=== PATIENT | female | born 1980 | race Caucasian/White ===

== ENCOUNTER → 2020-10-15 10:10 | Outpatient (BNVA) | payer BC, SELFPAY | PROVIDERS: PCP Internal Medicine; Visit Provider Obstetrics & Gynecology ==

== ENCOUNTER 2020-10-22 14:32 | Outpatient (REF) | payer BC, SELFPAY ==
--- NOTE | 2020-10-22 14:35 | US_ITS ---
EXAMINATION: US PELVIS COMPLETE CLINICAL INFORMATION: Adnexal fullness and menorrhagia. COMPARISON: Ultrasound pelvis 11/01/2019. TECHNIQUE: Transabdominal and transvaginal imaging of the pelvis is performed. FINDINGS: The uterus is anteverted measuring 9.5 cm in length, 5.3 cm in AP and 5.8 cm wide. The myometrium is heterogeneous. Endometrial thickness measures 1.75 cm. There is a small submucosal slightly hyperechoic lesion in the fundus measuring 2.1 x 1.9 1.1 cm, suspicious of a polyp or fibroid. No additional lesions seen. The right ovary measures 4.9 x 3.5 x 4.7 cm. There is a complex solid lesion with internal echoes measuring 4.3 x 3.9 x 4.1 cm with internal echoes. There are cystic areas within. The left ovary measures 3.7 x 2.4 x 2.9 cm and volume 13.5 mL. Previously left ovary measured 2.9 x 2.4 x 2.5 cm and volume 9.1 mL. There is small amount of free fluid in the pelvis. US/US transvaginal IMPRESSION: Small submucosal polyp versus fibroid in the fundal region. Heterogeneous myometrium Complex lesion in the right ovary with internal echoes and cystic areas within. Unremarkable left ovary. Small amount of free fluid in the pelvis.
--- NOTE | 2020-10-22 14:35 | US_ITS ---
EXAMINATION: US PELVIS COMPLETE CLINICAL INFORMATION: Adnexal fullness and menorrhagia. COMPARISON: Ultrasound pelvis 11/01/2019. TECHNIQUE: Transabdominal and transvaginal imaging of the pelvis is performed. FINDINGS: The uterus is anteverted measuring 9.5 cm in length, 5.3 cm in AP and 5.8 cm wide. The myometrium is heterogeneous. Endometrial thickness measures 1.75 cm. There is a small submucosal slightly hyperechoic lesion in the fundus measuring 2.1 x 1.9 1.1 cm, suspicious of a polyp or fibroid. No additional lesions seen. The right ovary measures 4.9 x 3.5 x 4.7 cm. There is a complex solid lesion with internal echoes measuring 4.3 x 3.9 x 4.1 cm with internal echoes. There are cystic areas within. The left ovary measures 3.7 x 2.4 x 2.9 cm and volume 13.5 mL. Previously left ovary measured 2.9 x 2.4 x 2.5 cm and volume 9.1 mL. There is small amount of free fluid in the pelvis. US/US pelvic complete IMPRESSION: Small submucosal polyp versus fibroid in the fundal region. Heterogeneous myometrium Complex lesion in the right ovary with internal echoes and cystic areas within. Unremarkable left ovary. Small amount of free fluid in the pelvis.
== END 2020-10-22 14:33 | disposition home or self-care (01) ==
LOC: HO.US 14:32
PROVIDERS: PCP Nurse Practitioner Family; Visit Provider Obstetrics & Gynecology
DX: N94.9 Unspecified condition associated with female genital organs and menstrual cycle (principal); N92.0 Excessive and frequent menstruation with regular cycle
CPT/HCPCS: 76830; 76856

== ENCOUNTER → 2020-10-30 14:17 | Outpatient (BNVA) | payer BC, SELFPAY | PROVIDERS: PCP Internal Medicine; Visit Provider Obstetrics & Gynecology ==

== ENCOUNTER 2020-10-31 13:47 | Outpatient (REF) | payer BC, SELFPAY ==
[2020-10-31 14:46] LABS: Hematocrit 37.1 % (37-47); Hemoglobin 11.9 g/dl (12.0-16.0); Mean Corpuscular HGB Conc 32.1 g/dl (31.0-35.0); Mean Corpuscular Hemoglobin 25.3 pg (27.0-33.0); Mean Corpuscular Volume 78.9 fL (80-98); Mean Platelet Volume 9.3 fL (9.4-12.3); Platelet Count 269 X10*3/uL (160-400); Red Cell Distribution Width 13.6 % (11.0-16.0); White Blood Count 5.1 X10*3/uL (4.8-10.8)
[2020-10-31 15:27] LABS: HCG Quantitative < 2 mIU/mL; Thyroid Stimulating Hormone 1.69 uIU/mL (0.32-4.0)
[2020-11-01 06:28] LABS: CA-125 22 U/mL (<35)
== END 2020-10-31 13:48 | disposition home or self-care (01) ==
LOC: HO.LAB 13:47
PROVIDERS: PCP Internal Medicine; Visit Provider Obstetrics & Gynecology
DX: N83.299 Other ovarian cyst, unspecified side (principal); N92.0 Excessive and frequent menstruation with regular cycle; N94.9 Unspecified condition associated with female genital organs and menstrual cycle
CPT/HCPCS: 36415; 84443; 84702; 85027; 86304

== ENCOUNTER → 2020-11-08 15:17 | Outpatient (BNVA) | payer BC, SELFPAY | PROVIDERS: Visit Provider Obstetrics & Gynecology ==

== ENCOUNTER → 2020-11-14 08:03 | Outpatient (BNVA) | payer BC, SELFPAY | PROVIDERS: Visit Provider Obstetrics & Gynecology ==

== ENCOUNTER 2020-11-23 06:42 | Day surgery (SDC) | payer BC, SELFPAY ==
[2020-11-19 15:30] VITALS: BMI 31.2
--- NOTE | 2020-11-21 12:03 | P.CONAN_ITS ---
Documented by User: Abby Bharti 11/21/20 12:04 HPI - Anesthesia Eval Consult details Narrative: 40yo F for D&C Diagnostic Hysteroscopy PMFSH Active Problems Active Problems: All Active Problems (Updated 11/19/20 @ 15:32 by Madeleine Wolfe) Well woman exam (Acute) Menorrhagia (Acute) Adnexal fullness (Acute) Complex ovarian cyst (Acute) Metrorrhagia (Acute) Pelvic pain (Acute) Past Medical History Medical History (Updated 11/19/20 @ 15:32 by Madeleine Wolfe) Anxiety Asthma, exercise induced Concussion Heartburn History of intussusception HTN (hypertension) Migraines Family History Family History Father HTN (hypertension) Mother HTN (hypertension) Surgical History Surgical History (Updated 11/19/20 @ 15:25 by Madeleine Wolfe) History of surgery on arm Social History Social History (Updated 11/19/20 @ 15:18 by Madeleine Wolfe) Alcohol intake: current Alcohol intake frequency: holidays/special occasions only Smoking Status: Never smoker Use of substances other than those prescribed or required for medical reasons: No Advance Directives: No Advance Directives Information Provided: No Advance Directives on File: No Meds Allergies Allergy/AdvReac Type Severity Reaction Status Date / Time No Known Allergies [NKA] Allergy Mild NKA Verified 11/19/20 15:21 Home Medications Medication Instructions Recorded Confirmed Last Taken Type labetalol 300 mg tablet 300 mg PO BID 10/15/20 11/19/20 11/23/20 History losartan 50 mg tablet 50 mg PO BID 10/15/20 11/19/20 Unknown History sertraline 50 mg tablet 75 mg PO DAILY 10/15/20 11/19/20 Unknown History calcium carbonate [Tums] 1 tab PO Q4-6H PRN 11/19/20 11/19/20 Unknown History melatonin 5 mg PO BEDTIME PRN 11/19/20 11/19/20 Unknown History multivitamin 1 tab PO DAILY 11/19/20 11/19/20 Unknown History Exam Exam Date and Time: November 21, 2020 1203 Height,Weight and Vital Signs: Height 5 ft Weight 72.575 kg Pertinent Lab Results Pertinent Lab Results: Laboratory Tests 10/31/20 14:05 WBC 5.1 Hgb 11.9 L Hct 37.1 Plt Count 269 Assessment and Plan Assessment Anesthesia Assessment: Chart Reviewed Documented by User: Hallie Lopez 11/23/20 08:07 [facility] Past Medical History Medical History (Updated 11/19/20 @ 15:32 by Madeleine Wolfe) Anxiety Asthma, exercise induced Concussion Heartburn History of intussusception HTN (hypertension) Migraines Family History Family History Father HTN (hypertension) Mother HTN (hypertension) Family history of problems with anesthesia: No Surgical History Surgical History (Updated 11/19/20 @ 15:25 by Madeleine Wolfe) History of surgery on arm History of Problems with Anesthesia: No Social History Social History (Updated 11/19/20 @ 15:18 by Madeleine Wolfe) Alcohol intake: current Alcohol intake frequency: holidays/special occasions only Smoking Status: Never smoker Use of substances other than those prescribed or required for medical reasons: No Advance Directives: No Advance Directives Information Provided: No Advance Directives on File: No Meds Allergies Allergy/AdvReac Type Severity Reaction Status Date / Time No Known Allergies [NKA] Allergy Mild NKA Verified 11/19/20 15:21 Home Medications Medication Instructions Recorded Confirmed Last Taken Type labetalol 300 mg tablet 300 mg PO BID 10/15/20 11/19/20 11/23/20 History losartan 50 mg tablet 50 mg PO BID 10/15/20 11/19/20 Unknown History sertraline 50 mg tablet 75 mg PO DAILY 10/15/20 11/19/20 Unknown History calcium carbonate [Tums] 1 tab PO Q4-6H PRN 11/19/20 11/19/20 Unknown History melatonin 5 mg PO BEDTIME PRN 11/19/20 11/19/20 Unknown History multivitamin 1 tab PO DAILY 11/19/20 11/19/20 Unknown History Exam Height,Weight and Vital Signs: Vital Signs Temp Pulse Resp BP Pulse Ox 11/23/20 07:10 97.8 F 70 16 129/86 96 Pertinent Lab Results Pertinent Lab Results: Lab Results 11/23/20 Range/Units 06:50 Urine Test NEGATIVE (NEGATIVE) Airway Mallampati Class: II TM Dist: >3cm Neck ROM: Full Heart: RRR Lungs: CTAB Assessment and Plan Assessment Anesthesia Assessment: Anesthesia Plan Discussed and Chart Reviewed Final Anesthetic Review NPO: Yes ASA Class: II Final Preanesthetic Review: No Changes in Pt Med Stat, Meds/Allgs Chart R eviewed, Consent Obtained/Reviewed and Anes Risks/Benef Reviewed Patient Risk: Low Procedure Risk: Low Assessment/Block/Sedation in SS: Assess/Block/Sedation-SS Anesthetic Plan Anesthetic Plan: GA Disposition: Standard PACU
[2020-11-23] VITALS (7 sets, daily range): BP systolic 121–137; BP diastolic 69–86; PULSE 59–74; RESP 16; TEMP 36.3–36.6; O2SAT 96–98
[2020-11-23 06:59] LABS: UPreg QC Valid YES; Urine Pregnancy NEGATIVE (NEGATIVE)
--- NOTE | 2020-11-23 07:30 | MHC.SHP ---
Pre-Procedural Eval Section A The patient is an INPATIENT: No Changes since office visit: No Cold of Flu in the past 2 weeks, No New Medical Problems, No Changes in Medication and No Patient answered all questions The History & Physical has been completed within 30 days and I have reviewed it.: Yes Section B Chief Complaint: Menorrhagia Allergies: Allergies Allergy/AdvReac Type Severity Reaction Status Date / Time No Known Allergies [NKA] Allergy Mild NKA Verified 11/19/20 15:21 Plan Diagnosis/Plan: Unchanged I have reviewed the history and physical and performed a pertinent physical examination on my patient. No changes have occurred unless specified.
[2020-11-23] MEDS: Lactated Ringers 1,000 ML 100 ML IVCONT (07:46)
--- NOTE | 2020-11-23 08:36 | PM.OP ---
Brief Operative Note Date of Service: 11/23/20 Pre-op diagnosis: Menorrhagia with endometrial polyp by ultrasound Post-op diagnosis: same Procedure: Hysteroscopy D&C, Polypectomy Surgeon: Alf Travis MD Anesthesia: MAC Estimated blood loss (mL): 0 Pathology: other (Endometrial Scrapping. Polyp) Condition: stable Disposition: PACU
--- NOTE | 2020-11-23 08:37 | P.OP_ITS ---
Operative Note Operative Note Date of Service: 11/23/20 Narrative: Preop Diagnosis: Menorrhagia with Endometrial polyp by US Operation: Diagnostic Hysteroscopy, Dilataion & Curettage and polypectomy Post Op Diagnosis: Endometrial Polyp QBL: Minimal Anesthesia: MAC Surgeon: Alf Travis MD [employer] Specialist: None Complication: None Pathology: Endometrial Scrapings, Endometrial polyp Complication: None Pathology: Endometrial Scrapings, Endometrial polyp Procedure: The patient was put in the dorsal lithotomy position, scrubbed, and draped in the usual manner. A sterile speculum was inserted in the patient's vagina. The anterior lip of the cervix was grasped with a single tooth tenaculum. The cervix was dilated up to 5 mm, then the scope was inserted in the patient's uterus. Inspection revealed endometrial polyp. The Myosure Reach device was used; it was introduced through the operative channel and polypectomy done with no complications. This was followed by sharp curettings, moderate tissues were retrieved. At the end of the procedure, all instruments were taken out of the patient uterine and vaginal cavity. The single tooth tenaculum was removed and homeostasis was assured using pressure,. The patient tolerated the procedure well and was transferred to the PACU in a stable condition.
[2020-11-23] MEDS: Acetaminophen 325 MG TABLET 650 MG PO (09:11)
== END 2020-11-23 10:15 ==
LOC: HO.SSS 06:42
PROVIDERS: Nurse Practitioner; PCP Internal Medicine; Visit Provider Obstetrics & Gynecology
PROC: 0UDB8ZX Extraction of Endometrium, Via Natural or Artificial Opening Endoscopic, Diagnostic (ICD-10-PCS; CPT 58558; principal; 2020-11-23 08:20)
DX: N92.0 Excessive and frequent menstruation with regular cycle (principal); N84.0 Polyp of corpus uteri; N83.299 Other ovarian cyst, unspecified side; I10 Essential (primary) hypertension; J45.990 Exercise induced bronchospasm; Z79.899 Other long term (current) drug therapy
CPT/HCPCS: 58558; 81025; 88305; J1100; J1885; J2250; J2405; J3010

== ENCOUNTER → 2020-12-06 10:49 | Outpatient (BNVA) | payer BC, SELFPAY | PROVIDERS: PCP Internal Medicine; Visit Provider Obstetrics & Gynecology ==

== ENCOUNTER → 2021-01-16 15:48 | Outpatient (BNVA) | payer BC, SELFPAY | PROVIDERS: PCP Internal Medicine; Visit Provider Obstetrics & Gynecology ==

== ENCOUNTER 2021-02-04 10:55 | Outpatient (REF) | payer BC, SELFPAY ==
--- NOTE | ~2021-02-04 | US_ITS ---
EXAMINATION: PELVIC ULTRASOUND CLINICAL INFORMATION: Ovarian cyst. COMPARISON: Previous pelvic ultrasound most recent September 2020 TECHNIQUE: Transabdominal and transvaginal pelvic ultrasound was performed. Transvaginal exam was performed for better visualization of the uterus and ovaries. FINDINGS: The uterus is anteverted and measures 9.3 x 5 x 4.9 cm in dimension. No focal uterine lesion is seen. Endometrial thickness measures 1.5 cm. Right ovary is enlarged and measures 5.9 x 4.5 x 4.3 cm. There is a complex partially cystic partially solid right adnexal lesion. This measures 4.7 x 3.6 x 4.7 cm with several complex cysts and hyperechoic solid component. Appearance is again questionable for a dermoid. This is similar to previous exams. The left ovary is normal-appearing and measures 3 x 2.5 x 2.1 cm. There is no fluid in the pelvis. US/US pelvic complete IMPRESSION: Stable complex partially solid partially cystic right ovarian lesion, question representing a dermoid.
--- NOTE | ~2021-02-04 | US_ITS ---
EXAMINATION: PELVIC ULTRASOUND CLINICAL INFORMATION: Ovarian cyst. COMPARISON: Previous pelvic ultrasound most recent September 2020 TECHNIQUE: Transabdominal and transvaginal pelvic ultrasound was performed. Transvaginal exam was performed for better visualization of the uterus and ovaries. FINDINGS: The uterus is anteverted and measures 9.3 x 5 x 4.9 cm in dimension. No focal uterine lesion is seen. Endometrial thickness measures 1.5 cm. Right ovary is enlarged and measures 5.9 x 4.5 x 4.3 cm. There is a complex partially cystic partially solid right adnexal lesion. This measures 4.7 x 3.6 x 4.7 cm with several complex cysts and hyperechoic solid component. Appearance is again questionable for a dermoid. This is similar to previous exams. The left ovary is normal-appearing and measures 3 x 2.5 x 2.1 cm. There is no fluid in the pelvis. US/US transvaginal IMPRESSION: Stable complex partially solid partially cystic right ovarian lesion, question representing a dermoid.
== END 2021-02-04 10:56 | disposition home or self-care (01) ==
LOC: HO.US 10:55
PROVIDERS: Visit Provider Obstetrics & Gynecology
DX: N83.299 Other ovarian cyst, unspecified side (principal)
CPT/HCPCS: 76830; 76856

== ENCOUNTER → 2021-02-08 08:08 | Outpatient (BNVA) | payer BC, SELFPAY | PROVIDERS: PCP Internal Medicine; Visit Provider Obstetrics & Gynecology ==

== ENCOUNTER → 2023-01-13 12:51 | Outpatient (REF) | payer BC, SELFPAY ==
--- NOTE | 2023-01-13 12:57 | CA_ITS ---
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 The calculated ejection fraction is 67% by biplane method. - There is mildly increased left ventricular wall thickness. - Evidence suggests grade I (mild) diastolic dysfunction. - No obvious valvular pathology seen on this study. Findings Left Ventricle Normal left ventricular cavity size. There is mildly increased left ventricular wall thickness. The left ventricular systolic function is normal. The calculated ejection fraction is 67% by biplane method. There is no evidence of regional wall motion abnormalities. E/E prime ratio is >15, consistent with elevated filling pressures. Evidence suggests grade I (mild) diastolic dysfunction. LV peak GLS -20.5%. Right Ventricle Normal right ventricular cavity size and systolic function. Atria Both atria are normal in size. Aortic Valve There is a normal trileaflet aortic valve. There is no aortic valve stenosis. There is no aortic valve regurgitation. Mitral Valve The mitral valve appears normal. There is no mitral valve regurgitation. There is no mitral valve stenosis. Pulmonic Valve The pulmonic valve is likely normal. Tricuspid Valve There is no tricuspid valve regurgitation. There is no evidence of pulmonary hypertension. Great Vessels The asc aorta is normal in size. Venous The inferior vena cava is normal in size and collapses greater than 50% with inspiration. Pericardium/Pleural There is no evidence of pericardial effusion. Prior Study Comparison No prior study available for comparison. Recommendations, Care & Conclusions No obvious valvular pathology seen on this study. Measurements 2D Linear Measurements IVSd: 1.25 0.6-0.9/0.6-1.0 cm LVIDd: 3.37 3.9-5.3/4.2-5.9 cm LVIDd Index: 1.95 2.4-3.2/2.2-3.1 cm/m2 LVIDs: 1.96 2.0-3.6 cm LVPWd: 1.25 0.7-1.1 cm Ao Root: 3.20 2.1-3.5 cm LA Diam: 3.10 2.7-3.8/3.0-4.0 cm LAIDs Index: 1.79 1.5-2.3 cm/m2 LV Mass: 170.55 67-162/88-224 g LV Mass Index: 98.58 43-95/49-115 g/m2 LVOT Diam: 1.90 3.0+(-)1.3 cm 2D Systolic Function EF 4C: 63.40 >55% EF 2C: 68.70 >55% EF BiP: 66.60 >55% Mitral Valve MV Pk E: 1.05 MV PK A: 0.99 MV Decel Time: 223.00 E/A: 1.10 E'Lateral: 7.51 E'Medial: 6.20 E/E' Med: 16.90 E/E' Lat: 14.00 PHT: 65.00 MVA PHT: 3.38 Decel Walton: 4.73 Aortic Valve AoV Pk Reji: 1.58 AoV Mn Reji: 1.05 AoV VTI: 0.39 AoV Pk Grad: 10.00 Aov Mn Grad: 5.00 KELLY Cont.VTI: 1.52 LVOT LVOT Pk Reji: 0.87 LVOT Mn Reji: 0.64 LVOT VTI: 0.21 LVOT Pk Grad: 3.00 LVOT Mn Grad: 2.00 LVOT Diam: 1.90 LVOT Area: 2.84 Diastolic Function MV Pk E: 1.05 MV Pk A: 0.99 E/A: 1.10 E'Medial: 6.20 E/E' Med: 16.90 E' Laterial: 7.51 E/E' Lat: 14.00 Right Ventricle TAPSE (mm): 30.00 TVS' Reji: 14.00 Tricuspid Valve TR Pk Reji: 2.07 TR Pk Grad: 17.00 RA Press: 3.00 RVSP: 20.00 Great Vessels Aorta Ao Root-2D: 3.20 2.0-3.7 cm Ao Asc: 3.20 2.1-3.4 cm Pulmonary Valve PV Pk Reji: 0.81 Peak PV Grad: 3.00 Updated in Other Vendor System with Status of Final Nicholas Oleary MD electronically signed on 01/13/2023 4:14:37 PM with status of Final
== END ==
LOC: HO.CARD 12:51
PROVIDERS: PCP Internal Medicine; Visit Provider Nurse Practitioner Family
DX: I10 Essential (primary) hypertension (principal)
CPT/HCPCS: 93306; 93356

== ENCOUNTER 2023-12-18 15:58 | Outpatient (AMB) | payer BC, SELFPAY ==
--- NOTE | 2023-12-18 16:01 | HO.NEPHOV_ITS ---
[facility] Medical History (Updated 12/18/23 @ 16:03 by Jaden Barber MD) Anxiety Migraines Heartburn Concussion Asthma, exercise induced History of intussusception HTN (hypertension) Surgical History History of surgery on arm Family History Father HTN (hypertension) Mother HTN (hypertension) Social History Alcohol intake: current Alcohol intake frequency: holidays/special occasions o nly Vital Signs 12/18/23 16:02 Height 5 ft Weight 181 lb 4 oz BMI 35.4 BP 130/90 H Blood Pressure Location Lt brachial Position Sitting Pulse 87 Pulse Source Pulse Oximeter Pulse Oximetry (%) 98 Oxygen Delivery Method Room Air Assessment & Plan Assessment & Plan Orders: Orders Electrolytes Today I10 - Essential (primary) hypertension Calcium Today I10 - Essential (primary) hypertension Blood Urea Nitrogen Today I10 - Essential (primary) hypertension Creatinine Today I10 - Essential (primary) hypertension Protein Creatinine Ratio, Ur Today I10 - Essential (primary) hypertension Coding Results Reviewed Nephrology Results: No Data to Display
--- NOTE | 2023-12-18 16:01 | HO.NEPHOV ---
HPI HPI Comments History of Present Illness Details I would the privilege of seeing Chantelle in follow-up of her hypertension. She does not have any headache, visual disturbances, nausea, vomiting, orthostatic symptoms, diarrhea, pedal edema. She does not take excessive nonsteroidal anti-inflammatories or salt in the diet. She is compliant with her medications. Her renal functions have been normal. She has history of having nausea with labetalol. She is on Abilify as well. She does not check her blood pressure at home. It has been at goal on the current medications. [facility] Medical History (Updated 12/18/23 @ 16:03 by Jaden Barber MD) Anxiety Migraines Heartburn Concussion Asthma, exercise induced History of intussusception HTN (hypertension) Surgical History History of surgery on arm Family History Father HTN (hypertension) Mother HTN (hypertension) Social History Alcohol intake: current Alcohol intake frequency: holidays/special occasions only Vital Signs 12/18/23 16:02 Height 5 ft Weight 181 lb 4 oz BMI 35.4 BP 130/88 Blood Pressure Location Lt brachial Position Sitting Pulse 87 Pulse Source Pulse Oximeter Pulse Oximetry (%) 98 Oxygen Delivery Method Room Air Physical Exam Const General: comfortable and no acute distress Orientation/consciousness: patient oriented x3 HEENT Head: Yes normocephalic Mouth: Normal oral and palatal mucosa present Eyes EOM: EOMs intact bilaterally Neck Neck: Yes supple Resp Auscultation: clear to auscultation bilaterally Cardio Jugular venous distension: no JVD Rate: regular rate GI Palpation (GI): Soft to palpation Auscultation: normal bowel sounds General: Yes no CVA tenderness Back/Spine/Pelvis Back: no CVA tenderness Skin General skin exam: no rashes or lesions noted Neuro General: patient oriented x3 and moves all extremities Extrem General: Yes no pedal edema Assessment & Plan Assessment & Plan (1) HTN (hypertension): Code(s): I10 - Essential (primary) hypertension Qualifiers: Hypertension type: primary hypertension Qualified Code(s): I10 - Essential (primary) hypertension Plan Chantelle's blood pressure is well controlled. She has history of hypokalemia due to chlorthalidone She has no clinical signs of end-organ damage She had COVID in September or October last year and blood pressure has been higher since She could continue on her current medications for now She should maintain lifestyle modification with low-sodium diet, weight loss and exercise. All these have been discussed in detail. All questions answered. Follow-up appointment given. Orders: Orders Electrolytes Today I10 - Essential (primary) hypertension Calcium Today I10 - Essential (primary) hypertension Blood Urea Nitrogen Today I10 - Essential (primary) hypertension Creatinine Today I10 - Essential (primary) hypertension Protein Creatinine Ratio, Ur Today I10 - Essential (primary) hypertension Creatinine 6 Months I10 - Essential (primary) hypertension Blood Urea Nitrogen 6 Months I10 - Essential (primary) hypertension Electrolytes 6 Months I10 - Essential (primary) hypertension Protein Creatinine Ratio, Ur 6 Months I10 - Essential (primary) hypertension Medications: Discontinued tranexamic acid (Lysteda) Discontinued Reason: Doctor's Order 1,300 mg (2 x 650 mg) PO TID 5 days 30 tabs 2RF Coding Level of Care Code Est Pt Level 4 (26074) Diagnoses Primary hypertension I10 Hypertension type: primary hypertension Results Reviewed Nephrology Results: No Data to Display
[2023-12-18 16:02] VITALS: BP 130/88; PULSE 87; O2SAT 98; BMI 35.4
== END 2023-12-18 16:32 | disposition home or self-care (01) ==
PROVIDERS: PCP Internal Medicine; Visit Provider Internal Medicine Nephrology
DX: I10 Essential (primary) hypertension (principal)
CPT/HCPCS: 99214

== ENCOUNTER → 2023-12-18 15:58 | Outpatient (BNVA) | payer BC, SELFPAY | PROVIDERS: PCP Internal Medicine; Visit Provider Internal Medicine Nephrology ==

== ENCOUNTER 2024-07-16 09:22 | Outpatient (REF) | payer BC, SELFPAY ==
[2024-07-16 11:54] LABS: Anion Gap 10 (12-20); Blood Urea Nitrogen 11 mg/dL (9-16); Calcium 8.6 mg/dL (8.4-10.2); Carbon Dioxide 29 mmol/L (22-29); Chloride 102 mmol/L (96-108); Estimated Glomerular Filt Rate > 60; Potassium 3.3 mmol/L (3.3-5.1); Sodium 138 mmol/L (135-145)
[2024-07-16 11:55] LABS: Creatinine Urine 236.36 mg/dL; Protein/Creatinine Ratio, Ur 0.05 (<0.2); Total Protein Urine Random 12 mg/dL (<12)
== END 2024-07-16 09:23 | disposition home or self-care (01) ==
LOC: HO.LAB 09:22
PROVIDERS: Visit Provider Internal Medicine Nephrology
DX: I10 Essential (primary) hypertension (principal)
CPT/HCPCS: 36415; 80051; 82310; 82565; 82570; 84156; 84520

== ENCOUNTER 2024-07-27 16:17 | Outpatient (AMB) | payer BC, SELFPAY ==
--- NOTE | 2024-07-27 16:19 | HO.NEPHOV_ITS ---
Vital Signs 07/27/24 16:21 Height 5 ft Weight 185 lb 4 oz BMI 36.2 BP 124/80 Blood Pressure Location Rt brachial Position Sitting Intake Visit Reasons: HTN/ 6 MO FU- Conf Operator Coating Furnace Required: No Accompanied by: Self / Same As Patient Allergies No Known Allergies [NKA] Allergy (Mild, Verified 07/27/24 16:21) NKA HPI Comments Details: Chantelle was seen in follow-up of her hypertension. She does not have any headache, visual disturbances, nausea, vomiting, orthostatic symptoms, diarrhea, pedal edema. She does not take excessive nonsteroidal anti-inflammatories or salt in the diet. She is compliant with her medications. Her renal functions have been normal. She has history of having nausea with labetalol. She does not check her blood pressure at home regularly. It has been at goal on the current medications [facility] Medical History (Updated 12/18/23 @ 16:03 by Jaden Barber MD) Anxiety Migraines Heartburn Concussion Asthma, exercise induced History of intussusception HTN (hypertension) Surgical History History of surgery on arm Family History Father HTN (hypertension) Mother HTN (hypertension) Social History Alcohol intake: current Alcohol intake frequency: holidays/special occasions only Review of Systems Const All systems reviewed & are unremarkable except as noted in HPI and below Physical Exam Vital Signs: Last Vital Signs BP 124/80 07/27/24 16:21 BMI result Body Mass Index 36.2 Const General: comfortable and no acute distress Orientation/consciousness: patient oriented x3 HEENT Head: Yes normocephalic Mouth: Normal oral and palatal mucosa present Eyes EOM: EOMs intact bilaterally Neck Neck: Yes supple Resp Auscultation: clear to auscultation bilaterally Cardio Jugular venous distension: no JVD Rate: regular rate GI Palpation (GI): Soft to palpation Auscultation: normal bowel sounds General: Yes no CVA tenderness Back/Spine/Pelvis Back: no CVA tenderness Skin General skin exam: no rashes or lesions noted Neuro General: patient oriented x3 and moves all extremities Extrem General: Yes no pedal edema Results Reviewed Nephrology Results: Sodium 138 mmol/L (135-145) 07/16/24 Potassium 3.3 mmol/L (3.3-5.1) 07/16/24 Chloride 102 mmol/L (96-108) 07/16/24 Carbon Dioxide 29 mmol/L (22-29) 07/16/24 BUN 11 mg/dL (9-16) 07/16/24 Creatinine 0.71 mg/dL (0.5-1.4) 07/16/24 Calcium 8.6 mg/dL (8.4-10.2) 07/16/24 Urine Creatinine 236.36 mg/dL 07/16/24 Protein/Creatinin Ratio 0.05 (<0.2) 07/16/24 Assessment & Plan Assessment & Plan (1) HTN (hypertension): Code(s): I10 - Essential (primary) hypertension Category: Medical Qualifiers: Hypertension type: primary hypertension Qualified Code(s): I10 - Essential (primary) hypertension Plan Chantelle's blood pressure is well controlled. She has history of hypokalemia due to chlorthalidone She has no clinical signs of end-organ damage She had COVID and blood pressure has been higher since She could continue on her current medications for now She should maintain lifestyle modification with low-sodium diet, weight loss and exercise. All these have been discussed in detail. All questions answered. Follow-up appointment given Coding Level of Care Code Est Pt Level 4 (12246) Diagnoses Primary hypertension I10 Hypertension type: primary hypertension
[2024-07-27 16:21] VITALS: BP 124/80; BMI 36.2
== END 2024-07-27 16:34 | disposition home or self-care (01) ==
LOC: HO.HKA 16:18
PROVIDERS: PCP Internal Medicine; Visit Provider Internal Medicine Nephrology
DX: I10 Essential (primary) hypertension (principal)
CPT/HCPCS: 99214

== ENCOUNTER → 2024-07-27 16:17 | Outpatient (BNVA) | payer BC, SELFPAY | PROVIDERS: PCP Internal Medicine; Visit Provider Internal Medicine Nephrology ==

== ENCOUNTER 2025-07-26 16:15 | Outpatient (AMB) | payer BC, SELFPAY ==
--- OUTSIDE RECORDS SUMMARY | 2025-07-24 09:00 | XMS_ITS | Encounter Summary ---
Author Organization [facility] Address [address] [address] Phone Care Team Providers Care Assistant Director Of Residence Life Name Role Phone Von Elizabeth MD Unavailable [phone] Moo Baez PA-C Primary Care Provider Reason for Referral * Medication Prior Authorization - Pending Review Specialty Diagnoses / Procedures Referred By Contac t Referred To Contact Diagnoses Class 1 obesity due to excess calories without serious comorbidity with body mass index (BMI) of 32.0 to 32.9 in adult Essential hypertension Gastroesophageal reflux disease without esophagitis IIH (idiopathic intracranial hypertension) Fanny Hand DO [address] [place] [address] Phone: tel: fax: mailto:[email or web address] Referral ID Status Reason Start Date Expiration Date V isits Requested Visits Authorized [id number] Pending Review 1 1 Reason for Visit * Reason Comments First Visit New Patient * Consultation (Within 1 month) - New Request Specialty Diagnoses / Procedures Referred By Contac t Referred To Contact Rafia Taylor MD [address] [place] [id number] Phone: tel: fax: mailto:[email or web address] [email or web address] Phone: tel: Referral ID Status Reason Start Date Expiration Date V isits Requested Visits Authorized [id number] New Request 07/17/2025 07/17/2026 1 1 Encounter Details Date Type Department Care Team (Skyler st Contact Info) Description 07/24/2025 9:00 AM EDT Office Visit [facility] Medical Weight Management [address] [facility] [address] [place] [address] Fanny Hand DO [address] [place] [address] [email or web address] Class 1 obesity due to excess calories without serious comorbidity with body mass index (BMI) of 32.0 to 32.9 in adult (Primary Dx); Essential hypertension; Anxiety and depression; Gastroesophageal reflux disease without esophagitis; Elevated LDL cholesterol level; IIH (idiopathic intracranial hypertension) Social History Tobacco Use Types Packs/Day Years Used Date Smoking Tobacco: Never Passive Smoke Exposure: Past Smokeless Tobacco: Never Tobacco Cessation:Counseling Given: Not Answered Alcohol Use Standard Drinks/Week Comments Yes 1 (1 standard drink = 0.6 oz pur e alcohol) 1-2 drinks/week Child or Family Care Answer Date Record ed Do you have problems with on e of the following making it difficult for you to work, study, or receive health care? No 08/22/2024 Education Answer Date Recorded Are you interested in help w ith more adult education (for example, completing high school, GED, job training, learning the Vincentian language, technical skills, or developing parenting skills)? No 08/22/2024 Are you concerned about learning? Not on file 08/22/2024 No 08/22/2024 Yes 08/22/2024 Food Answer Date Recorded Within the past 6 months we worried whether our food would run out before we got money to buy more. Never True 08/22/2024 Within the past 6 months the food we bought just didn't last and we didn't have enough money to get more. Never True Residential Stability Answer Date Recor ded What is your housing situation today? I have roscoe sing 08/22/2024 How many times have you move d in the past 12 months? Zero (I did not move) 08/22/2024 Paying for Meds Answer Date Recorded Do you have trouble paying for medicines? No 08/22/2024 Paying Utility Bills Answer Date Record ed Do you have trouble paying your heating or elect ricity bill? No 08/22/2024 Transportation Answer Date Recorded Has the lack of transportati on kept you from medical appointments or from getting medications? No 08/22/2024 Unemployment Answer Date Recorded Are you currently unemployed or working on a part-time or temporary basis, and looking for work? No 08/22/2024 Digital Access Answer Date Recorded No 08/22/2024 Yes 08/22/2024 Do you have reliable internet access at home? Ye s 08/22/2024 Do you have a device (e.g., phone, tablet, computer) with a working camera? Yes 08/22/2024 Intimate Partner Violence Answer Date R ecorded Denied Basic Needs Not on file 12/12/2024 In the past 12 months have y ou been in a relationship with a person who hurts, threatens, or tries to control you? No 12/12/2024 Worried food would run out Not on file 12/12 In the past 12 months have y ou been in a relationship with a person who hurts, threatens, or tries to control you? No 12/12/2024 Comments No Sex and Gender Information Value Date Recorded Sex Assigned at Not on file Legal Sex Female 9:24 PM EDT Gender Identity Not on file Sexual Orientation Not on file documented as of this encounter Last Filed Vital Signs Vital Sign Reading Time Taken Comments Blood Pressure 114/56 07/24/2025 9:00 AM EDT Pulse 60 07/24/2025 9:00 AM EDT Temperature - - Respiratory Rate - - Oxygen Saturation 99% 07/24/2025 9:00 AM EDT Inhaled Oxygen Concentration - - Weight 77.7 kg (171 lb 3.2 oz) 07/24/2025 9:00 A M EDT Height 154 cm (5' 0.63 ) 07/24/2025 9:00 AM EDT Body Mass Index 32.74 07/24/2025 9:00 AM EDT documented in this encounter Patient Instructions * Patient Instructions* Fanny Hand DO - 07/24/2025 9:00 AM EDT Images from the original note were not included. - Start Premier protein shake once a day in the morning - Start 0.25mg Wegovy weekly, prior authorization may take 2-3 weeks - Start multivitamin - Drink adequate water Please follow up with our [employer] Person and attend virtual group sessions with the RD every other week MAJOR TENANTS: HIGH PROTEIN- EAT FIRST AT EVERY MEAL, 12-16oz, PLAN for this in your diet. 2. LOW CARB- EAT IN AM AND AFTERNOON, NOT EVENING 3. CALORIE DEFICIT- 300-500 calories per day deficit based on total energy expenditure from [place] Equation. If you eat Carbohydrates in the evening (bread, pasta, rice, potatoes, sweet potato, sweets, fruits, etc) your insulin is turned on at night, which causes your body to store nutrients instead of using them, making it hard to lose weight. Insulin signals to your body to save your fat and store more,so we want to limit this at night. Ideally, no carbohydrates after 3-4pm. This will also help limitlate night snacking, which also makes it hard to lose weight, as your body is not fasted overnight. Sample Meal Schedule: Morning- Breakfast Afternoon- Lunch or two snacks Limit carbs as much as possible after 3 or 4pm 5-6pm Big Meal of day, 50% of plate Protein 50% of plate vegetables Protein Shake in evening if hungry, Premier Protein or other low sugar/glycemic index! Ideally 5g carbs or less per shake. Five Neely Health Factors Whole foods: whole, unprocessed foods. These are vegetables (fresh or frozen), fruits, whole grains, nuts/seeds, beans/legumes, fish, poultry, and lean red meats. Consider: how often do I eat homemade meals compared to grabbing to go, take-out, or eating out? Can I increase my vegetable consumption? Can I swap packaged snacks for raw vegetables, fruit, or hummus? Physical activity/exercise: a combination of cardio (walking up hill, cycling, stairs) and weight training (body weight: sit ups, lunges; resistance bands; free weights). Consider: can I take the stairs or park further? Stress management: how do you manage your stress? Try walks, meditation apps (calm, headspace), or a hobby that you enjoy (drawing, writing, reading, listening to music or podcasts). If stress, boredom, or relaxation are linked with food, think about what else can be linked with these instead. Thismay include any of the above, in addition to drinking warm tea or flossing/brushing/mouthwash/usinga mint after meals and snacks. Sleep: how many hours of sleep do you get? Sleep plays a crucial role in health and weight management. Seven to eight hours per night is ideal. What does your nighttime routine look like? Getting ready for the next day, writing down any stressors, then taking 5 minutes to relax and using lavender essential oil may help to improve sleep. Social support: who can you talk to and what relationships are the most valuable to you? Whose health values are closely aligned with yours? That is who you want to surround yourself with--to inspireeach other! Serving Sizes Protein Servings: 3-5 per day 4 oz fish or shellfish 4 oz poultry 3/4 cup Russian yogurt 1 egg + 2 egg whites 3/4 cup low fat cottage cheese 1/2 cup part skim ricotta cheese 4 oz tofu 1/2 cup edamame 4 oz red meat Dairy Servings: 1-2 per day 3/4 cup nonfat yogurt (non-Russian) 8 oz milk, lactaid, or soy milk 1/2 cup evaporated skim milk 1/3 cup dry nonfat milk 1 oz cheese 1 string cheese 1/4 cup shredded cheese Fruit Servings: 2-3 per day 1 apple 4 fresh apricots or 8 dried apricot halves 1/2 8 inch banana 3/4 cup blackberries or blueberries 1 cup cantaloupe or honeydew cubed 12 fresh cherries 2 clementines 3 small or 1 large (medjool) date 2 Tbsp dried fruits (raisins, cranberries) 3 small dried figs or 1 ?? large fresh fig 1/2 grapefruit 17 grapes 2 small guava ?? cup sliced kiwi 1/2 small diana 1 nectarine or orange 1/2 papaya 1 peach 1/2 pear 3/4 cup fresh pineapple 1/2 cup canned pineapple 2 plums or 3 prunes 1/2 cup pomegranate seeds 1 cup raspberries 1 1/4 cup whole strawberries 1 tangerine 1 1/4 cup watermelon Non-Starchy Vegetable Servings: 5 per day 1/2 cup cooked vegetables or 1 cup raw vegetables artichoke arugula asparagus beets broccoli brussels sprouts cabbage carrots cauliflower celery chayote eveline greens cucumber eggplant fennel green onions or scallions green beans hearts of palm jicama kale leeks lettuce mushrooms okra onions peppers radishes snap peas spinach spring mix or mixed greens summer squash (yellow, zucchini) iranian chard tomato turnips water chestnuts Fat Servings: 2-3 per day 2 tsp peanut butter, almond butter, or other nut butter 1 oz nuts 2 Tbsp seeds 1/4 avocado 1 tsp olive oil, avocado oil, canola oil, grapeseed oil, coconut oil 10 olives 2 Tbsp hummus 1 Tbsp oil-based dressing 2 Tbsp light salad dressing 1 Tbsp light mayonnaise 1 Tbsp light tub margarine 1 tsp butter Starch Servings: 2-3 per day Beans 1/2 cup beans or legumes (lentils, chickpeas, kidney, oliva, black, black-eyed peas, chen, navy, white, refried) 1/3 cup baked beans Grains 1/2 cup cooked oats, bulgur, tabbouleh, or wild rice 1/3 cup cooked quinoa, barley, millet, couscous, pasta, polenta, or rice 1/4 cup oat bran 3/4 cup unsweetened cold cereal 2 Tbsp granola Starchy Vegetables 1/2 cup sweet potato/yam, mashed potato, green peas, parsnips, corn, or taro 1 cup mixed vegetables with corn or peas 1 cup winter squash (acorn, butternut) 1/3 cup cooked cassava or plantain 3/4 cup pumpkin puree Breads 1 slice Jesús, whole grain, or sourdough bread 1/2 6 inch whole wheat hailey 1 oz naan 1 oz roti 1/2 Vincentian muffin 1 whole grain sandwich thin 1 6 inch tortilla 1/4 bagel Snacks 2 wasa crackers 2 GG crackers 4 jose crisps 4 triscuits 3 cups popcorn 3/4 oz matzo 4 wicho toasts 3 micah crackers 3/4 oz pretzels 2 rice cakes Meal and Snack Ideas Breakfast Ideas Yogurt Bowl 3/4 cup plain Russian yogurt 3/4 cup blueberries 1 tsp each claudia seeds, ground flax seeds, sunflower seeds 1 tsp cinnamon Oatmeal Bowl 1/2 cup oats made with 3/4-1 cup water 1 sliced apple 1/2 cup plain Russian yogurt 2 tsp peanut butter or almond butter Veggie Omelet 1 egg + 2 egg whites 1 cup spinach 1/4 avocado 1 slice Jesús or whole grain bread Mini Frittatas 1 egg + 2 egg whites, 2 cups spinach, 1/2 cup tomatoes baked in muffin tin (2 muffins) 2 cups arugula salad and 2 tsp olive oil, pepper, basil, parsley Protein Smoothie 1 scoop protein powder 1/2 cup spinach 1/2 banana 1 Tbsp peanut butter powder 8 oz unsweetened vanilla almond milk Yogurt and ???Granola?? Bowl 3/4 cup plain Russian yogurt 1 cup melon 1 Tbsp almonds 2 tsp claudia seeds sprinkle of oats, cinnamon, nutmeg Sweet and Savory Cracker [place] 2 GG or Wasa crackers 2 Tbsp almond butter 1 cup raspberries and cinnamon Lunch Ideas Salad with Grilled Chicken 4 oz grilled chicken 1 cup spring mix salad 1 Tbsp walnuts 1 Tbsp dressing and 1 Tbsp nutritional yeast Tuna Fish Salad 1 can tuna fish mixed with 2 tsp Russian yogurt and 1/4 avocado 2 cups water amy and endive salad 2 tsp olive oil and vinaigrette Quinoa Bowl 4 oz baked chicken strips 1/3 cup cooked quinoa 1/4 cup each cabbage and snap peas 1/4 cup pomegranate seeds 2 Tbsp feta cheese Sushi Neruda sushi roll Neruda style (wrapped in cucumber) 6 pieces 1/2 cup miso soup 2 steamed side vegetables such as broccoli, carrots, or snow peas Cauliflower Rice and Beans 4 oz lean meat 1 cup cauliflower rice 1/4 cup black beans 1 cup celery, peppers, tomatoes 1/4 avocado 1/4 cup tortilla strips Soup and Salad 1 cup lentil soup 1/2 6 inch whole grain hailey 1 cup spring mix salad with 1/4 cup each radishes and shredded carrots and 1 tsp olive oil 2 cups arugula salad and 2 tsp olive oil, pepper, basil, parsley Vegetarian Bowl 1/2 cup edamame 1/2 cup roasted sweet potato chunks 1 cup spinach 1/4 cup beets 2 Tbsp pumpkin seeds 5 Jyothi's Gone Crackers broken into pieces 1 Tbsp dressing Dinner Ideas Sadler Salad 4 oz baked or grilled salmon 1-2 cups kale salad with 1 Tbsp dressing 1/4 cup each cucumber, tomato, onions 1/4 avocado Chicken and Cauliflower Mash 4 oz baked or grilled chicken 1-2 cups mixed greens with 1 Tbsp dressing 1/2 cup cauliflower mash 1/2 cup mixed vegetables [place] Flour Crusted Cod 4 oz baked cod crusted with 1 tsp avocado oil and 1 Tbsp almond flour and cajun spice blend 1-2 cups string beans, mushrooms, onions, garlic Zpaghetti and Bastian Meatballs 3 turkey meatballs 1 cup zucchini noodles 1/2 cup sauteed onions, garlic, and peppers 2 Tbsp tomato sauce or 2 tsp olive oil, garlic, pepper, pinch salt 1 cup shaved brussels sprouts salad Chickpea Pasta 4 oz grilled or baked chicken strips 1/3 cup cooked Banza chickpea pasta (or other hurt, lentil, or whole grain pasta) 1/2 cup chopped tomatoes 1 cup spinach or other vegetable of choice 1 Tbsp tahini mixed with Russian yogurt Eggplant Stacks 4 eggplant stacks made with sliced and baked eggplant 1 Tbsp part skim ricotta cheese, 0.5 tsp pesto sauce, 1 sliced tomato, 1 fresh basil leaf on each slice of eggplant 1 cup side salad with 2 Tbsp sunflower seeds and 1 Tbsp dressing of choice Spaghetti Squash Bake 1 cup spaghetti squash 1/4 cup each black beans and corn 4 oz cooked ground turkey 1/4 cup low fat shredded cheese 1 Tbsp green onion Nutritious Sweet Snack Ideas 1. 3/4 cup blueberries mixed with 1 Tbsp each almonds and walnuts 2. 1/2 cup frozen grapes topped with cinnamon and nutmeg and 1 Tbsp plain Russian yogurt 3. 1 apple with 2 tsp peanut butter and cinnamon 4. 1-3 Olyra breakfast biscuits 5. 3/4 cup plain Russian yogurt with 1 tsp Navitas raw cacao powder or Carrizozo's cocoa powder (0 g sugar) and 1 tsp claudia seeds 6. 1 Tbsp Navitas raw cacao nibs mixed with 1 Tbsp nuts 7. 3/4 cup cottage cheese with 1/2 cup melon Nutritious Savory Snack Ideas 1. 1 cup raw vegetables (carrots, peppers, cucumber, celery, broccoli, cauliflower) and 2 Tbsp hummus 2. 1 oz nuts or seeds 3. 1 cup cucumber slices with pepper and pinch salt and 2 oz tofu 4. 1 cup baked zucchini or kale chips seasoned with pepper, basil, parsley, pinch salt 5. 1/2 cup roasted or plain edamame or chickpeas 6. 1 Wasa cracker (or high fiber cracker >2 g fiber per serving) and 1 oz cheese 7. 5 Jyothi's Gone Crackers with 1 Tbsp hurt spread and 1/2 cup cucumber slices Goal Setting and Self-Reflection State one goal you would like to focus on: For example, I aim to eat 1-2 cups of vegetables with my dinner 5x/week. Or, I aim to go for a walk for 30 minutes 4x/week. I aim to x/week. State what motivates you (for example, health, family): Knik your favorite sources of protein. Protein helps keep you full and satisfied. It also helps maintain muscle mass, and plays a role in hair, skin, and nail health. Fish or Shellfish Chicken Bastian Russian Yogurt Tofu Edamame Eggs Cottage Cheese Ricotta Cheese Beef Pork Knik your favorite sources of fiber. Fiber also helps keep you full and satisfied. It helps regulate bowel function, blood sugar, and to lower cholesterol levels. Vegetables: Broccoli, [place] Sprouts, Sweet Potato with skin (this is a starchy vegetable) Fruits: Berries, Pears, Apples Beans and Legumes: Split Peas, Lentils, Black Beans Nuts and Seeds: Claudia Seeds, Almonds, Pistachios Whole Grains: Barley, Bran Flakes, Oats *Note your meal plan and goals will be further individualized when meeting with a Registered Dietitian Exercise: Very important to maintain muscle mass while you lose weight, diet is biggest factor in absolute weight loss, exercise helps with muscle maintenance and body recomposition. Walk Run Lift (video), Walk at home (channel)- Nuvilextube, 20min + aerobics type videos, basic intro video, great if just starting back into exercise: Video link Mr and Mrs Muscle (channel name)- Nuvilextube videos, bodyweight and lifting, more advanced: Channel Link Juice & Domitila (channel name)- Youtube videos, bodyweight and lifting, more advanced: Channel Link documented in this encounter Progress Notes * Fanny Hand DO - 07/24/2025 9:00 AM EDT Images from the original note were not included. [facility] Obesity Medicine Visit Referred by: Rafia Taylor MD [address] [place] [id number] SUBJECTIVE HPI Patient is a 45 y.o. female presenting for treatment of obesity and weight related comorbidities. She has a pmhx significant for class 1 obesity, HTN, GERD, HLD, idiopathic intracranial hypertension (followed by neuro-ophtha), anxiety, depression, elevated LFT's, cervical radiculopathy, cubital tunnel syndrome who presented to [facility] care. She was recently seen by Neuro-Ophtha (Dr Eid) for IIH, with LP ordered, continues on Diamox 500mg BID and recs for weight loss (5-7%). Her symptoms began 12/2024 with daily WYNN's and neck pressure with pulsatile tinnitus. She was dx with IIH by hotel server 05/2025, saw a neuro-vascular (Dr Foote) and she was prescribed Diamox 500 mg BID. She hasn't noted any significant improvement. She is known for high blood pressure (diagnosed age 15). She didn't take recent antibiotics or vitamin A supplements. CT Angio Head (05/12/2025): 1. No intracranial aneurysm, arteriovenous malformation, large vessel occlusion or stenosis. No evidence of dural AV fistula. 2. No evidence of venous sinus thrombosis. Severe narrowing of the bilateral transverse dural venous sinuses and right sigmoid sinus due to large arachnoid granulations. Partially empty expanded sella. These findings may be related to idiopathic intracranial hypertension. MRI Brain with/without contrast (07/03/2025): Expanded empty sella turcica with dilation of the bilateral optic nerve sheaths. Salma is stenosis of the bilateral transverse sinuses right greater than left. Constellation of findings is nonspecificand raises suspicion for intracranial hypertension. She has been struggling with her weight for the past few years since her hysterectomy in 2020, feels she doesn't eat much during the day, was previously attributed to medications. She was working out3x/week for 7 months and did not have any weight changes during this time. Previous attempts at weight loss which includes various low-calorie diets and exercise programs have been unsuccessful. Failed to lose at least 5% body weight on behavioral modifications and reduced caloric diets alone, requiring pharmaceutical intervention. Patient denies history of pancreatitis, medullary thyroid cancer, multiple endocrine neoplasia type II. Patient is interested in weight lossmedications Weight History [place] body weight: 47 kg (103 lb 8.1 oz) Adjusted ideal body weight: 59.2 kg (130 lb 9.3 oz) Highest adult weight: 187 lbs, BMI 35.5 Lowest adult weight: 160's lbs Current weight: 171 lbs BMI: 32.7 Goal Weight: no set weight in mind, likely around 160's Wt Readings from Last 3 Encounters: 07/24/25 77.7 kg (171 lb 3.2 oz) 04/25/25 79.1 kg (174 lb 6.4 oz) 12/13/24 82.1 kg (181 lb) Current or past weight loss medications None Phentermine CI due to idiopathic intracranial hypertension Weight Promoting Medications Sertraline Weight-related Co-morbidities: IIH HTN HLD GERD Eligible for WLS: Does meet NIH criteria for WLS? 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 Barber q 6 months Intrauterine device Irregular menses Oral contraceptive use Patient Active Problem List Diagnosis Anxiety and depression Cervical radiculopathy Cubital tunnel syndrome Essential hypertension Lateral epicondylitis Spondylolisthesis at L5-S1 level Stress at work Gastroesophageal reflux disease without esophagitis Indigestion Elevated LDL cholesterol level Asthma Elevated LFTs Pulsatile tinnitus of right ear Past Surgical History: Procedure Laterality Date HYSTERECTOMY 03/2021 [facility] Intasusseption Intasusseption as an SALPINGOOPHORECTOMY Right 03/2021 Torn Left elbow Ligament Torn Left elbow Ligament Family History Problem Relation Age of Onset Hypertension Mother Depression Mother Bipolar disorder Mother Dementia Mother vascular Hypertension Father No Known Problems Sister No Known Problems Sister No Known Problems Sister Hypertension Brother Depression Son OCD Spectrum disorder Son No Known Problems Son Breast cancer Paternal Grandmother Other Unspecified General Notes Status: Notes: Mother-Bipolar depression. Father - HTN, hyperlipidemia. Sister - depression, anxiety. 4 other siblings - all healthy. Paternal grandmother - breast cancer age 50. ? Social History Tobacco Use Smoking status: Never Passive exposure: Past Smokeless tobacco: Never Vaping Use Vaping status: never used Substance Use Topics Alcohol use: Yes Alcohol/week: 1.0 - 2.0 standard drink of alcohol Types: 1 - 2 Standard drinks or equivalent per week Comment: 1-2 drinks/week Drug use: No Current Outpatient Medications Ordered in [facility] Medication Sig acetaZOLAMIDE (DIAMOX) 125 MG tablet Take 500 mg by mouth 2 (two) times a day. Indications: pseudotumor cerebri, a condition with high fluid pressure in the brain chlorthalidone (HYGROTON) 25 MG tablet TAKE 1 TABLET BY MOUTH 1 TIME EACH DAY. losartan (COZAAR) 50 MG tablet Take 50 mg by mouth 2 (two) times a day. melatonin 5 mg Tab Take by mouth nightly at bedtime as needed. omeprazole (PRILOSEC) 20 MG capsule Take 20 mg by mouth daily. sertraline (ZOLOFT) 100 MG tablet TAKE 1 TABLET BY MOUTH EVERY DAY labetaloL (TRANDATE) 300 MG tablet Take 1.5 tablets (450 mg total) by mouth 2 (two) times a day. semaglutide, weight loss, (WEGOVY) 0.25 mg/0.5 mL subcutaneous pen injection Inject 0.5 mL (0.25 mgtotal) under the skin every 7 days. No Known Allergies ? ?OBJECTIVE Blood pressure 114/56, pulse 60, height 154 cm (5' 0.63 ), weight 77.7 kg (171 lb 3.2 oz), last menstrual period 11/23/2020, SpO2 99%. Body mass index is 32.74 kg/m??. Wt Readings from Last 3 Encounters: 07/24/25 77.7 kg (171 lb 3.2 oz) 04/25/25 79.1 kg (174 lb 6.4 oz) 12/13/24 82.1 kg (181 lb) Exam CONSTITUTIONAL: Pleasant, appears comfortable RESPIRATORY: No increased effort NEUROLOGIC: Clear speech, intact comprehension PSYCHIATRIC: Appropriate mood and affect, cooperative Labs Lab Results Component Value Date NA 140 05/08/2025 K 3.1 (L) 05/08/2025 CL 99 05/08/2025 CO2 26 05/08/2025 BUN 12 05/08/2025 CRE 0.70 05/08/2025 GLU 98 05/08/2025 ALB 4.7 11/18/2024 TP 7.2 11/18/2024 CA 9.2 05/08/2025 ALKP 54 11/18/2024 TBILI 0.6 11/18/2024 SGOT 45 (H) 11/18/2024 SGPT 71 (H) 11/18/2024 GLOB 2.5 11/18/2024 GFR 108 05/08/2025 ANION 18 05/08/2025 Lab Results Component Value Date WBC 7.70 07/17/2025 RBC 4.58 07/17/2025 HGB 13.6 07/17/2025 HCT 38.2 07/17/2025 PLT 259 07/17/2025 MCV 83.4 07/17/2025 MCH 29.7 07/17/2025 MCHC 35.6 07/17/2025 RDW 12.3 07/17/2025 MVP 9.7 07/17/2025 NRBCA 0.00 07/17/2025 Lab Results Component Value Date CHOL 231 08/26/2024 CHOL 240 01/14/2023 CHOL 256 (H) 01/03/2022 HDL 46 08/26/2024 HDL 50 01/14/2023 HDL 54 01/03/2022 LDL 153 (H) 08/26/2024 LDL 161 (H) 01/14/2023 LDL 175 (H) 01/03/2022 TRIG 159 08/26/2024 TRIG 145 01/14/2023 TRIG 137 01/03/2022 CHOLHDL 5.0 (H) 08/26/2024 CHOLHDL 4.8 (H) 01/14/2023 CHOLHDL 4.7 (H) 01/03/2022 No results found for: HTQV5IEDV , GHBA1C Lab Results Component Value Date VITDT 24 (L) 10/18/2020 TSH Date Value Ref Range Status 01/03/2022 1.65 0.27 - 4.20 uIU/mL Final Lab Results Component Value Date B12 [id number] 10/18/2020 This SmartLink has been updated to reference the ASCVD 2013 equation and not the 2018 equations. Please consider using the newly developed race-neutral PREVENT score to determine CVD risk: https:// professional.heart.org/en/hpdqcucvhg-bub-gdnhlnjxwd/prevent-calculator The 10-year ASCVD risk score (Ken MORTON, et al., 2019) is: 1.6% Values used to calculate the score: Age: 45 years Sex: Female Is Non- : No Diabetic: No Tobacco smoker: No Systolic Blood Pressure: 114 mmHg Is BP treated: Yes HDL Cholesterol: 46 mg/dL Total Cholesterol: 231 mg/dL Fibrosis 4 Score: .95 For patients with??? F0-F1 Indeterminate F3-F4 BENITES <1.30 1.30-2.67 >2.67 HCV <1.45 1.45-3.25 >3.25 *Cut-offs are validated for ages 35-65 years. Calculated using: Age: 45 ALT: 71 (11/18/2024) AST: 45 (11/18/2024) Platelets: 259 (07/17/2025) ASSESSMENT/PLAN Body mass index is 32.74 kg/m??. 1. Class 1 obesity due to excess calories without serious comorbidity with body mass index (BMI) of32.0 to 32.9 in adult 2. Essential hypertension 3. Anxiety and depression 4. Gastroesophageal reflux disease without esophagitis 5. Elevated LDL cholesterol level 6. IIH (idiopathic intracranial hypertension) A/P - Start 0.25mg Wegovy, PA may take a few weeks, uptitrate as tolerated - Discussed that BCBS will stop coverage in 2025, can consider changing to zepbound vials at that time - She may benefit from metabolic surgery given IIH, she defers for now but can consider for future - Start Premier protein shake once a day in the morning, multivitamin, drink adequate water - Establish with RD - Follow up in 3 months Anti-Obesity medications -Patient meets criteria for use of anti-obesity medication (AOM) given BMI and comorbid conditions of excess adiposity. Discussed in detail use of AOM as adjunct to healthy, sustainable lifestyle behavior change. - Begin trial of 0.25 mg wegovy weekly. Potential side effects reviewed including nausea, vomiting, diarrhea, constipation, dyspepsia, abdominal pain, tachycardia, localized injection site reaction Patient should discontinue medication and call right away if experiencing any negative adverse effects Counseling -Diet counseling -Discussed in detail lifestyle intervention including high-protein, high-fiber, low-fat diet. -Avoid sugary beverages -Aim for a minimum of 30 grams of protein during each meal, with minimum intake of 100 grams daily. -Increase daily activities and exercise Exercise: Exercise counseling provided based on recommendations from The [employer] [email or web address] minutes of moderate-intensity aerobic activity per week OR 75 minutes of vigorous-intensity aerobic activity per week OR a combination of both, preferably spread throughout the week. The patient is additionally counseled to add moderate- to high- intensity muscle-strengthening activity such as resistance or weights at least 2-3 days per week. Diet: The patient has been counseled on a high protein, high fiber, low carbohydrate, low sugar diet witha focus on the following: +Reduce carbohydrate intake with a focus on high fiber, whole grain, complex carbohydrates +Avoid all processed foods, refined carbohydrates, simple sugars and high calorie juices and soft drinks. +Increase lean dietary proteins while limiting high fat meat and dairy +Limit dairy to 2 servings per day choosing low-fat or fat-free options +Increase dietary fiber with a focus on fresh fruits and vegetables +Reviewed portion sizes, recommended daily caloric intake, and macronutrient breakdown Discussed decreasing caloric intake by 300-500 Kcals per day for a weight loss of 1-[address] referral, and RD support group for additional dietary counseling and monitoring. As stated above, discussed risks and benefits of treatment plan and patient has elected to proceed with plan. We will continue to work together in achieving patient goals and follow-up appointments will be made. Orders Placed This Encounter semaglutide, weight loss, (WEGOVY) 0.25 mg/0.5 mL subcutaneous pen injection Sig: Inject 0.5 mL (0.25 mg total) under the skin every 7 days. Dispense: 2 mL Refill: 0 Fanny Hand DO Please note that this dictation was completed with computer voice recognition software. Quite oftenunanticipated grammatical, syntax, homophones, and other interpretive errors are inadvertently transcribed by the computer software. Please disregard these errors. Please excuse any errors that have escaped final proofreading documented in this encounter Plan of Treatment Upcoming Encounters Date Type Department Care Team (Late st Contact Info) Description 10/11/2025 3:20 PM EST Office Visit [facility] Internal Medicine [address] [place] [address] Moo Baez PA-C [address] [place] [address] 10/25/2025 4:00 PM EST Office Visit [facility] Medical Weight Management [address] [facility] [address] [place] [address] Fanny Hand DO [address] [place] [address] [email or web address] 11/20/2025 10:45 AM EST Office Visit [facility] [address] [facility] [address] [place] [address] Rafia Taylor MD [address] [place] [address] [email or web address] 11/29/2025 9:00 AM EST Nutrition [facility] Medical Weight Management [address] [place] [address] Chantelle Connors LDN [address] [place] [address] [email or web address] documented as of this encounter Visit Diagnoses Diagnosis Class 1 obesity due to excess calories without serious comorbidity with body mass index (BMI) of 32.0 to 32.9 in adult- Primary Essential hypertension Unspecified essential hypertension Anxiety and depression Gastroesophageal reflux disease without esophagitis Esophageal reflux Elevated LDL cholesterol level IIH (idiopathic intracranial hypertension) Benign intracranial hypertension documented in this encounter Additional Health Concerns Assessment Noted Time PHQ-2 Depression Total Score: 0 07/24/20 9:00 AM EDT documented as of this encounter Care Teams Assistant Director Of Residence Life Relationship Specialty Start Date End Date Moo Baez PA-C [address] [place] [address] PCP - General Physician Metaphysics Teacher 11/21/24 Von Elizabeth MD [address] [place] [address] [email or web address] Insurance Assigned Provider 01/02/24 documented as of this encounter Additional Source Comments The information contained in this document represents components of the legal health record. It is not the complete legal health record.[facility]
--- NOTE | 2025-07-26 16:20 | HO.NEPHOV_ITS ---
Vital Signs 07/26/25 16:26 Height 5 ft Weight 172 lb 8 oz BMI 33.7 BP 120/72 Blood Pressure Location Rt brachial Position Sitting Pulse 65 Pulse Source Pulse Oximeter Pulse Oximetry (%) 97 Oxygen Delivery Method Room Air Intake Visit Reasons: 1yr follow up-Conf Junior Linux Administrator Required: No Accompanied by: Self / Same As Patient Allergies No Known Allergies (NKA) Allergy (Mild, Verified 07/26/25 16:26) NKA Medication List - Last Reconciled 07/26/25 by Jaden Barber MD acetazolamide ER 500 mg PO BID chlorthalidone 25 mg PO DAILY labetalol 300 mg PO BID losartan 50 mg PO BID sertraline 100 mg PO DAILY HPI Comments Details: Chantelle was seen in follow-up of her hypertension. She does not have any heada shayla, visual disturbances, nausea, vomiting, orthostatic symptoms, diarrhea, pedal edema. She does not take excessive nonsteroidal anti-inflammatories or salt in the diet. She is compliant with her medications. Her renal functions have been normal. She does not check her blood pressure at home regularly. It has been at goal on the current medications. She had pulsatile tinnitus predominantly in the right ear with worsening headaches. 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 She was seen by skate boarder and was diagnosed as grade 1 papilledema. She has over 15 pound weight gain over last year. She has been started on Diamox 500 mg twice daily. She has been referred to see neuro ophthalmology for monitoring of papilledema. [facility] Medical History (Updated 12/18/23 @ 16:03 by Jaden Barber MD) Anxiety Migraines Heartburn Concussion Asthma, exercise induced History of intussusception HTN (hypertension) Surgical History History of surgery on arm Family History Father HTN (hypertension) Mother HTN (hypertension) Social History Alcohol intake: current Alcohol intake frequency: holidays/special occasions only Review of Systems Const All systems reviewed & are unremarkable except as noted in HPI and below Physical Exam Vital Signs: Last Vital Signs Pulse 65 07/26/25 16:26 BP 120/72 07/26/25 16:26 Pulse Ox 97 07/26/25 16:26 Oxygen Delivery Method Room Air 07/26/25 16:26 BMI result Body Mass Index 33.7 Const General: comfortable and no acute distress Orientation/consciousness: patient oriented x3 HEENT Head: Yes normocephalic Mouth: Normal oral and palatal mucosa present Eyes EOM: EOMs intact bilaterally Neck Neck: Yes supple Resp Auscultation: clear to auscultation bilaterally Cardio Jugular venous distension: no JVD Rate: regular rate GI Palpation (GI): Soft to palpation Auscultation: normal bowel sounds General: Yes no CVA tenderness Back/Spine/Pelvis Back: no CVA tenderness Skin General skin exam: no rashes or lesions noted Neuro General: patient oriented x3 and moves all extremities Extrem General: Yes no pedal edema Assessment & Plan Assessment & Plan (1) HTN (hypertension): Code(s): I10 - Essential (primary) hypertension Category: Medical Qualifiers: Hypertension type: primary hypertension Qualified Code(s): I10 - Essential (primary) hypertension Plan Blood pressure is currently well controlled. Has history of hypokalemia due to chlorthalidone No clinical signs of end-organ damage (She had COVID and blood pressure has been higher since & needed more medn) Continue her current medications for now Maintain lifestyle modification with low-sodium diet, weight loss and exercise Could continue Diamox 500 mg PO bid; F/U labs pending Needs follow up imaging/ Neuro ophthal F/U; May need stenting/LP All these have been discussed in detail. All questions answered Follow-up appointment given in six months Orders: Orders Electrolytes 6 Months I10 - Essential (primary) hypertension Creatinine 6 Months I10 - Essential (primary) hypertension Blood Urea Nitrogen 6 Months I10 - Essential (primary) hypertension Medications: Changed From labetalol 300 mg PO BID To labetalol 300 mg PO BID 180 tabs 3RF 90 days Refilled chlorthalidone 25 mg PO DAILY 90 tabs 5RF losartan 50 mg PO BID 180 tabs 5RF Coding Level of Care Code Est Pt Level 4 (00092) Diagnoses Primary hypertension I10 Hypertension type: primary hypertension
[2025-07-26 16:26] VITALS: BP 120/72; PULSE 65; O2SAT 97; BMI 33.7
--- OUTSIDE RECORDS SUMMARY | 2025-07-26 20:11 | XMS_ITS | Encounter Summary ---
Author Organization [facility] Address [address] [place] [address] Phone Care Team Providers Care Metal Products Fabricator Assembler Name Role Phone Von Elizabeth MD Unavailable [phone] Jenny Salazar NP Primary Care Provider [phone] Steffi White BILLBOARD INSTALLER Primary Care Provider [phone] Pcp, Unknown Primary Care Provider Moo Leblanc PA-C Primary Care Provider [phone] Encounter Details Date Type Department Care Team (Late Contact Info) Description 12/04/2020 Ancillary Orders [facility],Outside Imaging [address] [place] [address] System, Provider Not In, [place] [address] Social History Tobacco Use Types Packs/Day Years Used Date Smoking Tobacco: Never Smokeless Tobacco: Never Alcohol Use Standard Drinks/Week Comments Yes 0 (1 standard drink = 0.6 oz pur e alcohol) 2 drinks two times per week Comments No Sex and Gender Information Value Date Recorded Sex Assigned at Not on file Legal Sex Female 9:24 PM EDT Gender Identity Not on file Sexual Orientation Not on file documented as of this encounter Plan of Treatment Upcoming Encounters Date Type Department Care Team (Late Contact Info) Description 10/11/2025 3:20 PM EST Office Visit [facility] Internal Medicine [address] [place], [place] [phone] Moo Baez PA-C [address] [place], [place] [phone] 10/25/2025 4:00 PM EST Office Visit [facility] Medical Weight Management [address] [facility] [address] [place] [address] Fanny Hand DO [address] [place] [address] [email or web address] 11/20/2025 10:45 AM EST Office Visit [facility] [address] [facility] 9th [place] [address] Rafia Taylor MD [address] [place] [address] [email or web address] 11/29/2025 9:00 AM EST Nutrition [facility] Medical Weight Management [address] [facility] [address] [place] [address] Chantelle Connors LDN [address] [place] [address] [email or web address] documented as of this encounter Results * Mammogram Outside (No Interpretation) (10/21/2016 12:00 AM EST) Narrative SYSTEMGENERATED, DOCUMENTATION - 12/04/2020 10:13 AM EST This study is for PACS storage only and not for interpretation. us Provider Not In System PhD IMG OUTSIDE IMAGING W /OUT INTERPRETATION Final Result documented in this encounter Visit Diagnoses Not on filedocumented in this encounter Additional Health Concerns Infection Onset Date Last Indicated Resolved Time CoV-Exposed Comment:Recent close contact documented in the COVID-19 PCR/PRO order 10/08/2021 10/10/2021 10/29/2021 1:[address] CoV-Risk Comment:Per Ambulatory Triage Form 10/10/2021 10/10/202110/20 1:23 AM EST Assessment Noted Time PHQ-2 Depression Total Score: 2 10/08/19 21 10:15 AM EST documented as of this encounter Care Teams Metal Products Fabricator Assembler Relationship Specialty Start Date End Date Jenny Salazar NP [address] [place] [address] PCP - General Family Medicine 10/11/20 12/03/23 Steffi White FNP [address] [address] PCP - General Nurse Practitioner 08/22/24 10/23/24 Pcp, Unknown PCP - General 10/24/24 11/20/24 Moo Baez PA-C [address] [place] [address] PCP - General Physician Incident Response Coordinator 11/21/24 Von Elizabeth MD [address] [place] [address] [email or web address] Insurance Assigned Provider 01/02/24 documented as of this encounter Additional Source Comments The information contained in this document represents components of the legal health record. It is not the complete legal health record.[facility]
--- OUTSIDE RECORDS SUMMARY | 2025-07-26 20:11 | XMS_ITS | Encounter Summary ---
Author Organization [facility] Address [address] [place] [address] Phone Care Team Providers Care Acquisition Associate Name Role Phone Von Elizabeth MD Unavailable [phone] Jenny Salazar NP Primary Care Provider [phone] Steffi White IT TRAINING SPECIALIST Primary Care Provider [phone] Pcp, Unknown Primary Care Provider Moo Leblanc PA-C Primary Care Provider [phone] Encounter Details Date Type Department Care Team (Late st Contact Info) Description 12/03/2020 Procedure [facility] - [address] [place] [address] Social History Tobacco Use Types Packs/Day Years [...] Description 10/11/2025 3:20 PM EST Office Visit [facility] Internal Medicine [address] [place], [place] [phone] Moo Baez PA-C [address] [place] [address] 10/25/2025 4:00 PM EST Office Visit [facility] Medical Weight Management [address] [facility] [address] [place] [address] Fanny Hand DO [address] [place] [address] [email or web address] 11/20/2025 10:45 AM EST Office Visit [facility] [place] [place] [facility] [address] [facility] 9th [place] [address] Rafia Taylor MD [address] [place] [address] [email or web address] 11/29/2025 9:00 AM EST Nutrition [facility] Medical Weight Management [address] [facility] [address] [place] [address] Chantelle Connors LDN [address] [place] [address] [email or web address] documented as of this encounter Visit Diagnoses Not on filedocumented [...] documented as of this encounter Care Teams Acquisition Associate Relationship Specialty Start Date End Date Jenny Salazar NP [address] [place] [address] PCP - General Family Medicine 10/11/20 12/03/23 Steffi White FNP [address] [place] [address] [email or web address] PCP - General Nurse Practitioner 08/22/24 10/23/24 Pcp, Unknown PCP - General 10/24/24 11/20/24 Moo Baez PA-C [address] [place] [address] [email or web address] PCP - General Physician Load Dispatcher 11/21/24 Von Elizabeth MD [address] [place] [address] [email or web address] Insurance Assigned Provider 01/02/24 documented as of this encounter Additional Source Comments The information contained in this document represents components of the legal health record. It is not the complete legal health record.[facility]
--- OUTSIDE RECORDS SUMMARY | 2025-07-26 20:11 | XMS_ITS | Encounter Summary ---
Author Organization [facility] Address [address] [facility] [address] [place] [address] Phone Care Team Providers Care Baked Goods Stock Clerk Name Role Phone Von Elizabeth MD Unavailable [phone] Jenny Salazar NP Primary Care Provider [phone] Steffi White BODY DESIGN CHECKER Primary Care Provider [phone] Pcp, Unknown Primary Care Provider Moo Leblanc PA-C Primary Care Provider [phone] Encounter Details Date Type Department Care Team (Late st Contact Info) Description 08/07/2023 Transcribe Orders Virtual Department 30 [place] [address] Jenny Salazar, ANISHA [address] [place] [address] [address] [place] [address] [email or web address] Breast screening (Primary Dx) Social History Tobacco Use Types Packs/Day Years Used Date Smoking Tobacco: Never Smokeless Tobacco: Never Alcohol Use Standard Drinks/Week Comments Yes 1 (1 standard drink = 0.6 oz pur e alcohol) 1-2 drinks/week Child or Family Care Answer Date Record ed Do you have problems with on e of the following making it difficult for you to work, study, or receive health care? No 01/14/2023 Education Answer Date Recorded Are you interested in help w ith more adult education (for example, completing high school, GED, job training, learning the Palestinian language, technical skills, or developing parenting skills)? No 01/14/2023 Food Answer Date Recorded Within the past 6 months we worried whether our food would run out before we got money to buy more. Never True 01/14/2023 Within the past 6 months the food we bought just didn't last and we didn't have enough money to get more. Never True Residential Stability Answer Date Recor ded What is your housing situation today? I have roscoe ryan 01/14/2023 How many times have you move d in the past 12 months? Zero (I did not move) 01/14/2023 Paying for Meds Answer Date Recorded Do you have trouble paying for medicines? No 01/14/2023 Paying Utility Bills Answer Date Record ed Do you have trouble paying your heating or elect ricity bill? No 01/14/2023 Transportation Answer Date Recorded Has the lack of transportati on kept you from medical appointments or from getting medications? No 01/14/2023 Unemployment Answer Date Recorded Are you currently unemployed or working on a part-time or temporary basis, and looking for work? No 01/14/2023 Digital Access Answer Date Recorded No 02/20/2023 No 02/20/2023 Reliable internet access at home? Not on file 02/20/2023 Device with a working camera? Not on file Comments No Sex and Gender Information Value Date Recorded Sex Assigned at Not on file Legal Sex Female 9:24 PM EDT Gender Identity Not on file Sexual Orientation Not on file documented as of this encounter Plan of Treatment Upcoming Encounters Date Type Department Care Team (Late st Contact Info) Description 10/11/2025 3:20 PM EST Office Visit [facility] Internal Medicine 40 [place] [address] Moo Baez PA-C 40 [place] [address] [email or web address] 10/25/2025 4:00 PM EST Office Visit [facility] Medical Weight Management [address] [address] Fanny Hand DO 221 [place] [address] [email or web address] 11/20/2025 10:45 AM EST Office Visit [facility] [address] 9th [place] [address] Rafia Taylor MD 243 [place] [address] [email or web address] 11/29/2025 9:00 AM EST Nutrition [facility] Medical Weight Management [address] [place] [address] Waylon Chantelle Powers, LDN 221 [place] [address] [email or web address] documented as of this encounter Results * BI MAMMOGRAM SCREENING WITH TOMOSYNTHESIS WITH CAD (BILATERAL) (09/17/2023 2:38 PM EST) Anatomical Region Laterality Modality Breast Left, Breast Right, Breast Bilateral Bila teral Mammography 09/17/2023 2:47 PM EST Impressions 09/17/2023 2:51 PM EST No mammographic signs of malignancy. Annual screening is recommended. BI-RADS CATEGORY: 1 - Negative. DENSITY: There are scattered fibroglandular densities. LEFT RECOMMENDATION DUE DATE: 12 Months Left Mammography Screening RIGHT RECOMMENDATION DUE DATE: 12 Months Right Mammography Screening Narrative 09/17/2023 2:51 PM EST Bilateral mammography is performed in conjunction with computed aided detection. 3-D tomography along with 2-D C view imaging was also performed. Comparison made to previous dated as far back as 10/21/2016 and as recent as 01/14/2022. No suspicious masses, areas of architectural distortion or suspicious microcalcifications. Procedure Note Jaden Dailey MD - 09/17/2023 Bilateral mammography is performed in conjunction with computed aideddetection. 3-D tomography along with 2-D C view imaging was alsoperformed. Comparison made to previous dated as far back as 10/21/2016 andas recent as 01/14/2022. No suspicious masses, areas of architectural distortion or suspiciousmicrocalcifications. IMPRESSION: No mammographic signs of malignancy. Annual screening is recommended. BI-RADS CATEGORY: 1 - Negative. DENSITY: There are scattered fibroglandular densities. LEFT RECOMMENDATION DUE DATE: 12 Months Left Mammography Screening RIGHT RECOMMENDATION DUE DATE: 12 Months Right Mammography Screening Jenny Salazar NP IMG MG EXAMS Final Result documented in this encounter Visit Diagnoses Diagnosis Breast screening- Primary Breast screening, unspecified Breast screening Breast screening, unspecified documented in this encounter Additional Health Concerns Assessment Noted Time PHQ-2 Depression Total Score: 1 04/15/20 23 2:02 PM EDT documented as of this encounter Care Teams Baked Goods Stock Clerk Relationship Specialty Start Date End Date Jenny Salazar, ANISHA [address] [place] [address] PCP - General Family Medicine 10/11/20 12/03/23 Steffi White FNP [address] [address] PCP - General Nurse Practitioner 08/22/24 10/23/24 Pcp, Unknown PCP - General 10/24/24 11/20/24 Moo Baez PA-C [address] [place] [address] PCP - General Physician Airborne And Air Delivery Specialist 11/21/24 Von Elizabeth MD [address] [place] [phone] Insurance Assigned Provider 01/02/24 documented as of this encounter Additional Source Comments The information contained in this document represents components of the legal health record. It is not the complete legal health record.[facility]
--- OUTSIDE RECORDS SUMMARY | 2025-07-26 20:11 | XMS_ITS | Encounter Summary ---
Author Organization [facility] Address [address] [place] [address] Phone Care Team Providers Care Graduate Civil Engineer Name Role Phone Von Elizabeth MD Unavailable [phone] Jenny Salazar CUSTOMER ORDER CLERK Primary Care Provider [phone] Steffi White DENTAL SCHEDULING COORDINATOR Primary Care Provider [phone] Pcp, Unknown Primary Care Provider Moo Leblanc PA-C Primary Care Provider [phone] Encounter Details Date Type Department Care Team (Late st Contact Info) Description 12/03/2020 Ancillary Orders Virtual Department 30 [place] [address] Jenny Salazar, ANISHA [address] [place] [address] [email or web address] Breast screening Social History Tobacco Use Types Packs/Day Years Used Date Smoking Tobacco: Never Smokeless Tobacco: Never Alcohol Use Standard Drinks/Week Comments Yes 0 (1 standard drink = 0.6 oz pur e alcohol) 2 drinks two times per week Comments Unknown Sex and Gender Information Value Date Recorded Sex Assigned at Not on file Legal Sex Female 9:24 PM EDT Gender Identity Not on file Sexual Orientation Not on file documented as of this encounter Plan of Treatment Upcoming Encounters Date Type Department Care Team (Late st Contact Info) Description 10/11/2025 3:20 PM EST Office Visit [facility] Internal Medicine [address] [place] [address] Moo Baez PA-C [address] [place] [address] 10/25/2025 4:00 PM EST Office Visit [facility] Medical Weight Management [address] [facility] 2nd [place] [address] Fanny Hand DO 221 [place] [address] [email or web address] 11/20/2025 10:45 AM EST Office Visit [facility] [address] [facility] 9th [place] [address] Rafia Taylor MD 243 [place] [address] [email or web address] 11/29/2025 9:00 AM EST Nutrition [facility] Medical Weight Management [address] [place] [address] Chantelle Connors LDN 221 [place] [address] [email or web address] documented as of this encounter Results * BI MAMMOGRAM SCREENING WITH TOMOSYNTHESIS WITH CAD (BILATERAL) (12/04/2020 9:32 AM EST) Anatomical Region Laterality Modality Breast Left, Breast Right, Breast Bilateral Bila teral Mammography 12/05/2020 7:36 AM EST Impressions 12/05/2020 7:39 AM EST BILATERAL BREASTS: Negative, no evidence of malignancy. Normal interval follow- up is recommended in 12 months. Bi-RADS: BI-RADS CATEGORY: 1 - Negative. DENSITY: There are scattered fibroglandular densities. Narrative 12/05/2020 7:39 AM EST STUDY: Bilateral screening mammography with tomosynthesis and CAD TECHNIQUE: Bilateral full-field digital screening mammography is obtained and read in conjunction with computer-aided detection. Tomosynthesis as well as 2-D C view imaging were obtained. COMPARISON: Comparison made to October 21, 2016 BREAST COMPOSITION: There are scattered areas of fibroglandular density BILATERAL BREASTS: No significant masses, suspicious calcifications or other abnormalities are seen. Procedure Note Elfego Francisco MD - 12/05/2020 STUDY: Bilateral screening mammography with tomosynthesis and CAD TECHNIQUE: Bilateral full-field digital screening mammography is obtainedand read in conjunction with computer-aided detection. Tomosynthesis aswell as 2-D C view imaging were obtained. COMPARISON: Comparison made to October 21, 2016 BREAST COMPOSITION: There are scattered areas of fibroglandulardensity BILATERAL BREASTS: No significant masses, suspicious calcifications orother abnormalities are seen. IMPRESSION: BILATERAL BREASTS: Negative, no evidence of malignancy. Normal intervalfollow-up is recommended in 12 months. Bi-RADS: BI-RADS CATEGORY: 1 - Negative. DENSITY: There are scattered fibroglandular densities. us Jenny Salazar NP IMG MG EXAMS Final Result documented in this encounter Visit Diagnoses Diagnosis Breast screening Breast screening, unspecified Breast screening Breast screening, unspecified documented in this encounter Additional Health Concerns Infection Onset Date Last Indicated Resolved Time CoV-Exposed Comment:Recent close contact documented in the COVID-19 PCR/PRO order 10/08/2021 10/10/2021 10/29/2021 1:[address] CoV-Risk Comment:Per Ambulatory Triage Form 10/10/2021 10/10/202110/20 1:23 AM EST Assessment Noted Time PHQ-2 Depression Total Score: 2 10/08/19 21 10:15 AM EST documented as of this encounter Care Teams Graduate Civil Engineer Relationship Specialty Start Date End Date Jenny Salazar, ANISHA 40 [place] [address] PCP - General Family Medicine 10/11/20 12/03/23 Steffi White FNP [address] [address] [email or web address] PCP - General Nurse Practitioner 08/22/24 10/23/24 Pcp, Unknown PCP - General 10/24/24 11/20/24 Moo Baez PA-C 40 [place] [address] [email or web address] PCP - General Physician Studio Grip 11/21/24 Von Elizabeth MD 40 [place] [address] [email or web address] Insurance Assigned Provider 01/02/24 documented as of this encounter Additional Source Comments The information contained in this document represents components of the legal health record. It is not the complete legal health record.[facility]
--- OUTSIDE RECORDS SUMMARY | 2025-07-26 20:11 | XMS_ITS | Encounter Summary ---
Author Organization [facility] Address [address] [place] [address] Phone Care Team Providers Care Taping Foreman Name Role Phone Von Elizabeth MD Unavailable [phone] Jenny Salazar NP Primary Care Provider [phone] Steffi White IRONWORKER WIRE FENCE ERECTOR Primary Care Provider [phone] Pcp, Unknown Primary Care Provider Moo Leblanc PA-C Primary Care Provider [phone] Encounter Details Date Type Department Care Team (Late st Contact Info) Description 10/24/2021 Procedure Pass [address] [address] Social History Tobacco Use Types Packs/Day Years [...] Description 10/11/2025 3:20 PM EST Office Visit [facility] Internal Medicine 40 [place], [place] [phone] Moo Baez PA-C 40 [place] [address] 10/25/2025 4:00 PM EST Office Visit [facility] Medical Weight Management [address] [facility] [address]nd [place] [address] Fanny Hand DO 221 [place] [address] [email or web address] 11/20/2025 10:45 AM EST Office Visit [facility] [address] [facility] 9th [place] [address] Rafia Taylor MD 243 [place] [address] [email or web address] 11/29/2025 9:00 AM EST Nutrition [facility] Medical Weight Management [address] [facility] [address] [place] [address] Chantelle Connors LDN 221 [place] [address] [email or web address] documented as of this encounter Visit Diagnoses Not on filedocumented in this encounter Additional Health Concerns Infection Onset Date Last Indicated Resolved Time CoV-Exposed Comment:Recent close contact documented in the COVID-19 PCR/PRO order 10/08/2021 10/10/2021 10/29/2021 1:[address] Assessment Noted Time PHQ-2 Depression Total Score: 2 12/29/19 22 7:32 AM EDT documented as of this encounter Care Teams Taping Foreman Relationship Specialty Start Date End Date Jenny Salazar NP [address] [place] [address] PCP - General Family Medicine 10/11/20 12/03/23 Steffi White FNP [address] [place] [address] PCP - General Nurse Practitioner 08/22/24 10/23/24 Pcp, Unknown PCP - General 10/24/24 11/20/24 Moo Baez PA-C [address] [place] [address] [email or web address] PCP - General Physician Dot Compliance Coordinator 11/21/24 Von Elizabeth MD [address] [place] [address] [email or web address] Insurance Assigned Provider 01/02/24 documented as of this encounter Additional Source Comments The information contained in this document represents components of the legal health record. It is not the complete legal health record.[facility]
--- OUTSIDE RECORDS SUMMARY | 2025-07-26 20:11 | XMS_ITS | Clinical Summary ---
Author Organization [facility] Address [address] [place] [address] Phone Care Team Providers Care Shadowgraph Operator Name Role Phone Von Elizabeth MD Primary Care Provider [phone] Allergies No known active allergies Medications sertraline (ZOLOFT) 50 MG tablet Take 1.5 tablets by mouth 1 (one) time each day 07/14/2012 Active ARIPiprazole (ABILIFY) 2 MG tablet Take 2 mg by mouth 1 (one) time each day 11/28/2022 Active labetalol (NORMODYNE) 300 MG tablet Take 1.5 tablets (450 mg total) by mouth in the morning and 1.5 tablets (450 mg total) in the evening. 90 tablet 11 12/17/2022 Active losartan (COZAAR) 50 MG tablet TAKE 1 TABLET (50 MG TOTAL) BY MOUTH IN THE MORNING AND 1 TABLET (50 MG TOTAL) IN THE EVENING. 180 tablet 5 01/19/2023 Active chlorthalidone 25 MG tablet TAKE 1 TABLET BY MOUTH 1 TIME EACH DAY. 90 tablet 5 04/28/2023 Active Active Problems Problem Noted Date Diagnosed Date Hypertension 02/26/2022 Low density lipoprotein cholesterol above refere nce range 02/12/2022 Benign essential hypertension 01/01/2022 Urinary tract infection 04/05/2021 Overview (01/01/2022): Last Assessment & Plan: We are trying to assert here whether the symptoms she is having at home after finishing up the Macrobid is truly a UTI or some other cause. Certainly some of the symptoms that she is describing make it seem she is UTI positive but the urinalysis comes back negative. Her exam today was unremarkable. In light of the surgery that is scheduled at [facility] in [place] next Thursday whereby the patient is having a right-sided ovarian cystectomy we feel that the benefits of going on a new antibiotic outweigh possible side effects such as diarrhea. She she can count potential side effects by taking probiotics and eating yogurt. We will switch the patient to Cipro 250 mg twice daily and send the urinalysis for culture and sensitivity and for assessment under the microscope. Resolved Problems Problem Noted Date Diagnosed Date Resolved Date Indigestion 12/28/2021 01/01/2022 Gastro-esophageal reflux dis ease without esophagitis 12/20/2020 01/01/2022 Anxiety 09/17/2018 01/01/2022 Stress at work 09/17/2018 01/01/2022 Cervical radiculopathy 09/26/201401/01 Overview (01/01/2022): Cervical Radiculopathy Overview: Cervical Radiculopathy Prolapsed cervical intervertebral disc 09/26/2014 01/01/2022 Overview (01/01/2022): Herniated Cervical Disc Spondylolisthesis L5/S1 level 07/22/2012 01/01/2022 Overview (01/01/2022): Lumbar Spondylolisthesis (L5 - S1) Overview: Lumbar Spondylolisthesis (L5 - S1) Low back pain 07/14/2012 01/01/2022 Overview (01/01/2022): 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 06/12/2010 01/01/2022 Overview (01/01/2022): 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 Overview: 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 Disease type AND/OR category unknown 05/30/2010 01/01/2022 Overview (01/01/2022): Text: Sprained Radial Collateral Ligament Of The Left Elbow Lateral epicondylitis 05/30/20102021 Overview (01/01/2022): Lateral Epicondylitis Overview: Lateral Epicondylitis Immunizations Immunization Administration Dates Next Due Influenza, Quadrivalent, Preservative Free 10/11,06/18/2017 Influenza, Unspecified 08/04/2019 Pfizer SARS-COV-2 02/17/2021,01/27/2021 Tdap 10/06/2019 Family History Medical History Relation Comments Kidney disease Child Stroke Father Hypertension Mother Relation Status Comments Child Father Alive Mother Alive Social History Tobacco Use Types Packs/Day Years Used Date Smoking Tobacco: Never Smokeless Tobacco: Never Tobacco Cessation:Counseling Given: Not Answered Alcohol Use Standard Drinks/Week Comments Yes 0 (1 standard drink = 0.6 oz pure alcohol) Alcoholic Drinks/day: Occasional social drink Comments Unknown Sex and Gender Information Value Date Recorded Sex Assigned at Not on file Legal Sex Female 4:58 PM EST Gender Identity Not on file Sexual Orientation Not on file Last Filed Vital Signs Vital Sign Reading Time Taken Comments Blood Pressure 130/80 12/17/2022 2:55 PM EDT Pulse 67 12/17/2022 2:55 PM EDT Temperature - - Respiratory Rate - - Oxygen Saturation - - Inhaled Oxygen Concentration - - Weight 84.7 kg (186 lb 12.8 oz) 12/17/2022 2:55 PM EDT Height 154.9 cm (5' 1 ) 10/31/2020 12:0 1 PM EST Body Mass Index 35.3 10/31/2020 12:01 PM EST Plan of Treatment Health Maintenance Due Date Last Done Comments Hepatitis B Vaccine (1 of 3 - 19+ 3-dose series) 1998 Pneumococcal Vaccine: Peds ( 0 to 5 Years) and At-Risk Patients (6 to 49 Years) (1 of 2 - PCV) 1998 Influenza Vaccine (#1) 2025 , 08/04/2019, 06/18/[address] [place] [address] Care Teams Shadowgraph Operator Relationship Specialty Start Date End Date Von Elizabeth MD [address] [place] [phone] PCP - General 10/08/20
--- OUTSIDE RECORDS SUMMARY | 2025-07-26 20:11 | XMS_ITS | Encounter Summary ---
Author Organization [facility] Address [address] [address] Phone Care Team Providers Care Cross Country And Track And Field Coach Name Role Phone Von Elizabeth MD Unavailable [phone] Jenny Salazar NP Primary Care Provider [phone] Steffi White PARACHUTE CROWN SEWER Primary Care Provider [phone] Pcp, Unknown Primary Care Provider Moo Leblanc PA-C Primary Care Provider [phone] Encounter Details Date Type Department Care Team (Late st Contact Info) Description 08/07/2023 Procedure Pass [facility] - [address] [place] [address] Social History Tobacco Use Types Packs/Day Years [...] high school, GED, job training, learning the [place] language, technical skills, or developing parenting skills)? [...] Description 10/11/2025 3:20 PM EST Office Visit [facility] [place] Internal Medicine 40 [place] [address] Moo Baez PA-C 40 [place] [address] 10/25/2025 4:00 PM EST Office Visit [facility] Medical Weight Management 221 [facility] 2nd [place] [address] Fanny Hand DO 221 [place] [address] [email or web address] 11/20/2025 10:45 AM EST Office Visit [facility] [address] 9th [place] [address] YadiraRafia Graham MD [address] [place] [address] [email or web address] 11/29/2025 9:00 AM EST Nutrition [facility] Medical Weight Management [address] [place] [address] Chantelle Connors, TRACEYN [address] [place] [address] [email or web address] documented as of this encounter Visit Diagnoses Not on filedocumented in this encounter Additional Health Concerns Assessment Noted Time PHQ-2 Depression Total Score: 1 04/15/20 23 2:02 PM EDT documented as of this encounter Care Teams Cross Country And Track And Field Coach Relationship Specialty Start Date End Date Jenny Salazar NP [address] [place] [address] PCP - General Family Medicine 10/11/20 12/03/23 Steffi White FNP [address] [address] PCP - General Nurse Practitioner 08/22/24 10/23/24 Pcp, Unknown PCP - General 10/24/24 11/20/24 Moo Baez PA-C [address] [place] [address] [email or web address] PCP - General Physician Chief Contract Officer 11/21/24 Von Elizabeth MD [address] [place] [address] Insurance Assigned Provider 01/02/24 documented as of this encounter Additional Source Comments The information contained in this document represents components of the legal health record. It is not the complete legal health record.[facility]
--- OUTSIDE RECORDS SUMMARY | 2025-07-26 20:11 | XMS_ITS | Encounter Summary ---
Author Organization [facility] Address [address] [address] Phone Care Team Providers Care Machine Set Up Operator Name Role Phone Von Elizabeth MD Unavailable [phone] Moo Baez PA-C Primary Care Provider [phone] Encounter Details Date Type Department Care Team (Late st Contact Info) Description 07/17/2025 Orders Only [facility] [address] [place] [address] Karli Serna [phone] [place] [address] [email or web address] Idiopathic intracranial hypertension Social History Tobacco Use Types Packs/Day Years Used Date Smoking Tobacco: Never Passive Smoke Exposure: Past Smokeless Tobacco: Never Alcohol Use Standard Drinks/Week [...] high school, GED, job training, learning the [place] language, technical skills, or developing parenting skills)? [...] housing situation today? I have roscoe ryan 08/22/2024 How many times have you move [...] Description 10/11/2025 3:20 PM EST Office Visit [facility] [address] [place] [address] Moo Baez PA-C [address] [place] [address] [email or web address] 10/25/2025 4:00 PM EST Office Visit [facility] Medical Weight Management [address] [place] [address] Fanny Hand DO [address] [place] [address] [email or web address] 11/20/2025 10:45 AM EST Office Visit [facility] [address] [facility] 9th [place] [address] Rafia Taylor MD [address] [place] [address] [email or web address] 11/29/2025 9:00 AM EST Nutrition [facility] Medical Weight Management [address] [place] [address] Chantelle Connors LDN [address] [place] [address] [email or web address] documented as of this encounter Procedures Procedure Name Priority Date/Time Associated Diagnosis Comments PTT Routine 07/17/2025 4:50 PM EDT Idiopathic intracranial hypertension PT-INR Routine 07/17/2025 4:50 PM EDT Idiopathic intracranial hypertension CBC Routine 07/17/2025 4:50 PM EDT Idiopathic intracranial hypertension documented in this encounter Results * PT-INR (07/17/2025 4:50 PM EDT) PT 11.0 10.0 - 13.0 sec [facility] INR 1.0 0.9 - 1.1 [facility] 07/17/2025 4:50 PM EDT 07/17/2025 6:46 PM EDT us Rafia Madsen MD LAB BLOOD PEDRO ULIS SCHUSTER Final Result [address] [address] * PTT (07/17/2025 4:50 PM EDT) APTT 26.9 24.0 - 37.5 sec [facility] Comment:Check MAR for the ta rget range that is ordered for your patient. 07/17/2025 4:50 PM EDT 07/17/2025 6:46 PM EDT us Rafia Madsen MD LAB BLOOD ORDE RABLES Final Result Performing Organization Address City/[facility] Co de Phone Number [address] [address] * CBC (07/17/2025 4:50 PM EDT) WBC 7.70 4.00 - 11.00 K/uL [facility] RBC 4.58 4.00 - 5.20 M/uL [facility] HGB 13.6 12.0 - 16.0 g/dL [facility] HCT 38.2 36.0 - 46.0 % [facility] PLT 259 150 - 450 K/uL [facility] MCV 83.4 80.0 - 100.0 fL [facility] MCH 29.7 27.0 - 31.0 pg [facility] MCHC 35.6 32.0 - 36.0 g/dL [facility] RDW 12.3 11.5 - 14.5 % [facility] MPV 9.7 8.4 - 12.0 fL [facility] NRBC 0.00 0.00 /100 WBCs [facility] ABSOLUTE NRBC 0.00 0.00 K/uL [facility] 07/17/2025 4:50 PM EDT 07/17/2025 6:46 PM EDT us Rafia Madsen MD LAB BLOOD ORDE RABLES Final Result Performing Organization Address City/[facility]/ZIP Co de Phone Number [address] [address] documented in this encounter Visit Diagnoses Diagnosis Idiopathic intracranial hypertension Benign intracranial hypertension documented in this encounter Additional Health Concerns Assessment Noted Time PHQ-2 Depression Total Score: 2 12/13/19 25 7:26 PM EDT documented as of this encounter Care Teams Machine Set Up Operator Relationship Specialty Start Date End Date Moo Baez PA-C [address] [place] [address] [email or web address] PCP - General Physician Addiction Nurse 11/21/24 Von Elizabeth MD [address] [place] [address] Insurance Assigned Provider 01/02/24 documented as of this encounter Additional Source Comments The information contained in this document represents components of the legal health record. It is not the complete legal health record.[facility]
--- OUTSIDE RECORDS SUMMARY | 2025-07-26 20:11 | XMS_ITS | Clinical Summary ---
Author Organization [facility] it Address [address] [place] [address] Care Team Providers Care Hazardous Waste Remover Name Role Phone Unavailable Primary Care Provider Unavailabl e Social History Tobacco Use Types Packs/Day Years Used Date Smoking Tobacco: Never Assessed Comments Unknown Sex and Gender Information Value Date Recorded Sex Assigned at Not on file Legal Sex Female 3:40 PM EST Gender Identity Not on file Sexual Orientation Not on file Plan of Treatment Health Maintenance Due Date Last Done Comments Breast Cancer Screening 1979 02/13/2025 DTaP,Tdap,and Td Vaccines (1 - Tdap) 1998 10/06/2019 Hepatitis B Vaccines (1 of 3 - 19+ 3-dose series) 1998 Cervical Cancer Screening: Pap Smear 02/16/2000 Depression Screening 09/28/2024 COVID-19 Vaccine ( season) 2025 02/17/2021, 01/27/2021 Influenza Vaccine (#1) 2025 , 08/04/2019, 06/18/2017, Additional history exists RSV Immunization Adult Patients (1 - 1-dose 75+ series) 2054 HIB Vaccines Aged Out No longer eligi ble based on patient's age to complete this topic HPV Vaccines Aged Out No longer eligi ble based on patient's age to complete this topic Hepatitis A Vaccines Aged Out No long er eligible based on patient's age to complete this topic IPV Vaccines Aged Out No longer eligi ble based on patient's age to complete this topic MMR Vaccines Aged Out No longer eligi ble based on patient's age to complete this topic Meningococcal ACWY Vaccine Aged Out N o longer eligible based on patient's age to complete this topic Meningococcal B Vaccine Aged Out No l onger eligible based on patient's age to complete this topic Pneumococcal Vaccine: Pediatrics (0 to 5 Years) and At-Risk Patients (6 to 49 Years) Aged Out No longer eligible based on patient's age to complete this topic RSV Immunization Patients Under 20 months Aged Out No longer eligible based on patient's age to complete this topic Varicella Vaccines Aged Out No longer eligible based on patient's age to complete this topic
--- OUTSIDE RECORDS SUMMARY | 2025-07-26 20:11 | XMS_ITS | Clinical Summary ---
Author Organization [facility] Address [address] [address] Phone Care Team Providers Care [employer] Name Role Phone Von Elizabeth MD Unavailable [phone] Moo Baez PA-C Primary Care Provider [phone] Allergies No known active allergies Medications losartan (COZAAR) 50 MG tablet Take 50 mg by mouth 2 (two) times a day. Active chlorthalidone (HYGROTON) 25 MG tablet TAKE 1 TABLET BY MOUTH 1 TIME EACH DAY. 10/22/19 23 Active labetaloL (TRANDATE) 300 MG tablet Take 1.5 tablets (450 mg total) by mouth 2 (two) times a day. 01/15/20 23 Active melatonin 5 mg Tab Take by mouth nightly at bedtime as needed. Active omeprazole (PRILOSEC) 20 MG capsule Take 20 mg by mouth daily. 03/07/20 25 Active sertraline (ZOLOFT) 100 MG tablet TAKE 1 TABLET BY MOUTH EVERY DAY 90 tablet 3 05/16/20 25 Active acetaZOLAMIDE (DIAMOX) 125 MG tabletIndications:i diopathic intracranial hypertension Take 500 mg by mouth 2 (two) times a day. Indications: pseudotumor cerebri, a condition with high fluid pressure in the brain Active semaglutide, weight loss, (WEGOVY) 0.25 mg/0.5 mL subcutaneous pen injectionIndication s:Class 1 obesity due to excess calories without serious comorbidity with body mass index (BMI) of 32.0 to 32.9 in adult,Essential hypertension,Gastro esophageal reflux disease without esophagitis,IIH (idiopathic intracranial hypertension) Inject 0.5 mL (0.25 mg total) under the skin every 7 days. 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 025 Discontin ued(No longer taking) nitrofurantoin (MACROBID) 100 MG capsuleIndications: Urinary urgency Take 1 capsule (100 mg total) by mouth 2 (two) times a day for 5 days. 10 capsule 07/03/20 25 025 Discontin ued(No longer taking) Active Problems Problem Noted Date Diagnosed Date Pulsatile tinnitus of right ear 04/25/2025 Assessment & Plan (04/25/2025 9:31 AM EDT): Pulsatile tinnitus and swishing within the ear concerning for AV malformation, aneurysm, less or concerning with possible cause eustachian tube dysfunction. Because of the history of hypertension it would be reasonable to look for aneurysms, AV malformations to rule this out. But is obtained therefore a CT scan with IV contrast semiurgent so within the next couple of weeks. Will obtain kidney function lab prior for the contrast. Asthma 12/13/2024 Elevated LFTs 12/13/2024 Elevated LDL cholesterol level 02/12/2022 Assessment & Plan (10/07/2024 10:03 AM EST): Lab Results Component Value Date CHOL 231 08/26/2024 HDL 46 08/26/2024 LDL 153 (H) 08/26/2024 TRIG 159 08/26/2024 CHOLHDL 5.0 (H) 08/26/2024 The 10-year ASCVD risk score (Ken MORTON, et al., 2019) is: 1.5% Values used to calculate the score: Age: 44 years Sex: Female Is Non- : No Diabetic: No Tobacco smoker: No Systolic Blood Pressure: 116 mmHg Is BP treated: Yes HDL Cholesterol: 46 mg/dL Total Cholesterol: 231 mg/dL Indigestion 12/28/2021 Gastroesophageal reflux disease without esophagi tis 12/20/2020 Anxiety and depression 09/17/2018 Assessment & Plan (10/07/2024 10:03 AM EST): Images from the original note were not included. 10/08/2020 10:15 AM 12/28/2021 7:32 AM 01/14/2023 8:27 AM 08/22/2024 2:43 PM 10/05/2024 6:47 PM PROMS MICHELLE-2/7 Feeling nervous, anxious or on edge Over half the days Several days Several days Not at all Not at all Not being able to stop or control worrying Over half the days Several days Several days Not at all Not at all PROMs Generalized Anxiety Disorder Screening Score (MICHELLE-2) 4 (Positive (reflex)) 2 (Negative) 2 (Negative) 0 (Negative) 0 (Negative) Worrying too much about different things Over half the days Feeling afraid as if something awful might happen Not at all Trouble relaxing Over half the days Becoming easily annoyed or irritable Over half the days Being so restless that it is hard to sit still Several days PROMs Generalized Anxiety Disorder Total Score (MICHELLE-7) 11 (Moderate anxiety) Continue sertraline 75 mg as prescribed. Does note some increased racing thoughts at night since discontinuing Abilify although does not wish to restart or further adjust medications at this time. Feels as though this is currently manageable. Assessment & Plan (08/24/2024 10:40 AM EST): Images from the original note were not included. 10/08/2020 10:15 AM 12/28/2021 7:32 AM 01/14/2023 8:27 AM 08/22/2024 2:43 PM PROMS MICHELLE-2/7 Feeling nervous, anxious or on edge Over half the days Several days Several days Not at all Not being able to stop or control worrying Over half the days Several days Several days Not at all PROMs Generalized Anxiety Disorder Screening Score (MICHELLE-2) 4 (Positive (reflex)) 2 (Negative) 2 (Negative) 0 (Negative) Worrying too much about different things Over half the days Feeling afraid as if something awful might happen Not at all Trouble relaxing Over half the days Becoming easily annoyed or irritable Over half the days Being so restless that it is hard to sit still Several days PROMs Generalized Anxiety Disorder Total Score (MICHELLE-7) 11 (Moderate anxiety) 01/14/2023 8:27 AM 04/15/2023 2:02 PM 08/22/2024 2:44 PM PHQ Depression Screening Score Little interest or pleasure in doing things Several days Not at all Not at all Feeling down, depressed, or hopeless Several days Several days Not at all Reviewed with patient. Patient would like to discontinue Abilify and we discussed taper over the next 2 to 3 weeks. She will continue with sertraline 75 mg daily. Encouraged to contact the office with any worsening of symptoms with discontinuation. Essential hypertension 09/17/2018 Assessment & Plan (10/07/2024 10:03 AM EST): Blood pressure well controlled today in office. Continue chlorthalidone 25 mg, labetalol 450 BID,, and losartan 50 mg BID per nephrology. Assessment & Plan (08/24/2024 10:40 AM EST): Blood pressure well-controlled today in office. Continue chlorthalidone 25 mg, labetalol 450 mg twice daily, losartan 50 mg twice daily as prescribed by nephrology. Orders: Comprehensive metabolic panel; Future Stress at work 09/17/2018 Cervical radiculopathy 09/26/2014 Overview (09/17/2018): Overview: Cervical Radiculopathy Spondylolisthesis at L5-S1 level 07/22/2012 Overview (09/17/2018): Overview: Lumbar Spondylolisthesis (L5 - S1) Cubital tunnel syndrome 06/12/2010 Overview (09/17/2018): Overview: 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 Lateral epicondylitis 05/30/2010 Overview (09/17/2018): Overview: Lateral Epicondylitis Encounters Date Type Department Care Team Description 07/24/2025 9:00 AM EDT Office Visit [facility] Medical Weight Management [address] [address] Fanny Hand DO Class 1 obesity due to excess calories without serious comorbidity with body mass index (BMI) of 32.0 to 32.9 in adult (Primary Dx); Essential hypertension; Anxiety and depression; Gastroesophageal reflux disease without esophagitis; Elevated LDL cholesterol level; IIH (idiopathic intracranial hypertension) 07/17/2025 3:30 PM EDT Office Visit [facility] [address], [place] [address] Rafia Taylor MD Idiopathic intracranial hypertension (Primary Dx) 07/17/2025 Orders Only [facility] [address] [address] Karli Serna Idiopathic intracranial hypertension 07/17/2025 Telephone [facility] [address] [place] [address] Moo Baez PA-C Referral 07/14/2025 Orders Only [facility] [address] [place] [address] ProviderInés MD 07/06/2025 Orders Only [facility] [address] [place] [address] Inés Herbert MD 07/05/2025 Orders Only [facility] [address] [place] [address] ProviderInés MD 07/03/2025 12:00 PM EDT Telemedicine [facility] [address] [place] [id number] Nini Westbrook CNP Urinary urgency (Primary Dx) 06/26/2025 Telephone [facility] [address] [place] [address] Farzana Centeno, OD 05/31/2025 Telephone [facility] [address] [place] [address] Cheyenne Martinez, [facility] Neurology Referral 05/30/2025 3:00 PM EDT Office Visit [facility] [address] [place] [facility] [place] [address] Nicaraguan, Farzana, OD Edema of optic disc of right eye (Primary Dx); Edema of optic disc of left eye 05/16/2025 Refill [facility] [address] [place] [address] Moo Baez PA-C Medication Refill 05/12/2025 4:28 PM EDT - 05/12/2025 11:59 PM EDT Hospital Encounter [facility] [address] [address] Mike Melo MD Discharge Disposition: Home or Self Care 05/08/2025 1:39 PM EDT - 05/08/2025 11:59 PM EDT Hospital Encounter [facility] [address] [place] [id number] Mike Melo MD Discharge Disposition: Home or Self Care 04/25/2025 9:00 AM EDT Office Visit [facility] [address] [place] [address] Mike Melo MD Pulsatile tinnitus of right ear (Primary Dx) 04/25/2025 Procedure Pass [address] [address] from Last 3 Months Immunizations Immunization Administration Dates Next Due COVID-19 (Pre-07/20) Pfizer Vaccine, mRNA, PF ,01/27/2021 INFLUENZA, SPLIT VIRUS, TRIVALENT W/ PRESERVATIV E IM 08/11/2014 Influenza Quadrivalent Preservative Free IM 09/28,06/18/2017 Influenza, Unspecified Formulation 08/04/2019 Tdap 10/06/2019 Family History Medical History Relation Comments Hypertension Brother Hypertension Father Bipolar disorder Mother Dementia Mother vascular Depression Mother Hypertension Mother Breast cancer Paternal Grandmother No Known Problems Sister 1 No Known Problems Sister 2 No Known Problems Sister 3 Depression Son 1 OCD Spectrum disorder Son 1 No Known Problems Son 2 Other Unspecified General Notes St atus: Notes: Mother-Bipolar depression. Father - HTN, hyperlipidemia. Sister - depression, anxiety. 4 other siblings - all healthy. Paternal grandmother - breast cancer age 50. Relation Status Comments Brother Alive Father Alive Maternal Grandmother Alive Mother Alive Paternal Grandmother Sister 1 Alive Sister 2 Alive Sister 3 Alive Son 1 Alive Son 2 Alive Unspecified Social History Tobacco Use Types Packs/Day Years [...] Pulse 60 07/24/2025 9:00 AM EDT Temperature 36.9 C (98.5 F) 04/25/2025 8:59 AM EDT Respiratory Rate 16 09/18/2024 11:17 AM EST Oxygen Saturation 99% 07/24/2025 9:00 AM EDT Inhaled Oxygen Concentration - - Weight 77.7 kg (171 lb 3.2 oz) 07/24/2025 9:00 A M EDT Height 154 cm (5' 0.63 ) 07/24/2025 9:00 AM EDT Body Mass Index 32.74 07/24/2025 9:00 AM EDT Plan of Treatment Upcoming Encounters Date Type Department Care Team (Late st Contact Info) Description 10/11/2025 3:20 PM EST Office Visit [facility] [place] [facility] [address] [place] [address] Moo Baez PA-C [address] [place] [address] [email or web address] 10/25/2025 4:00 PM EST Office Visit [facility] Medical Weight Management [address] [address] Fanny Hand DO [address] [place] [address] [email or web address] 11/20/2025 10:45 AM EST Office Visit [facility] [address] [facility] 9th [place] [address] Rafia Taylor MD [address] [place] [address] [email or web address] 11/29/2025 9:00 AM EST Nutrition [facility] Medical Weight Management [address] [facility] [address] [place] [address] Chantelle Connors, DANISH [address] [place] [address] [email or web address] Health Maintenance Due Date Last Done Comments PNEUMOCOCCAL VACCINES (0-49 years) (1 of 2 - PCV) 1998 COLOGUARD 02/16/2024 FIT TEST 02/16/2024 FOBT 02/16/2024 SIGMOIDOSCOPY 02/16/2024 VIRTUAL COLONOSCOPY 02/16/2024 INFLUENZA VACCINE (#1) 2025 , 08/04/2019, 06/18/2017, Additional history exists COVID-19 VACCINE ( - season) 2025 02/17/2021, 01/27/2021 BLOOD PRESSURE 01/22/2026 07/24/2025 CREATININE LEVEL 05/08/2026 05/08/2025, , 01/14/2023, Additional history exists POTASSIUM LEVEL 05/08/2026 05/08/2025, 07/30, 01/14/2023, Additional history exists DEPRESSION SCREENING 07/24/2026 07/24/2025 MAMMOGRAM 02/13/2027 02/13/2025, 08/29, 01/14/2022, Additional history exists SCREENING FOR DIABETES 05/08/2028 05/08/2025, 2020 LIPID PANEL 08/26/2029 08/26/2024, 12/27, 01/14/2023, Additional history exists Adult Td,Tdap Booster 10/06/2029 10/06/2019 COLONOSCOPY 07/06/2035 07/06/2025 COLORECTAL CANCER SCREENING 07/06/2035 HIV ONE-TIME SCREENING (18-65 YEARS) Completed 10/12/2019 HEPATITIS C SCREENING Completed 12/09/2024 , 01/03/2022, 01/03/2022 SMOKING STATUS SCREENING (Once After 26 Yrs) Completed 07/24/2025 HEPATITIS A VACCINES Aged Out No long er eligible based on patient's age to complete this topic HIB VACCINES Aged Out No longer eligi ble based on patient's age to complete this topic MENINGOCOCCAL VACCINES (ACWY) Aged Out No longer eligible based on patient's age to complete this topic MENINGOCOCCAL VACCINES (B) Aged Out N o longer eligible based on patient's age to complete this topic Medical Devices Not on file Procedures Procedure Name Priority Date/Time Associated Diagnosis Comments PT-INR Routine 07/17/2025 4:50 PM EDT Idiopathic intracranial hypertension PTT Routine 07/17/2025 4:50 PM EDT Idiopathic intracranial hypertension CBC Routine 07/17/2025 4:50 PM EDT Idiopathic intracranial hypertension OCT, OPTIC NERVE - OU - BOTH EYES Routine 07/17/2025 3:38 PM EDT Idiopathic intracranial hypertension LERMA VISUAL FIELD - OU - BOTH EYES Routine 07/17/2025 3:22 PM EDT Idiopathic intracranial hypertension OUTSIDE IMAGING Routine 07/14/2025 5:20 PM EDT HM COLONOSCOPY FOR RESULT ENTRY ONLY Routine 07/06/2025 8:09 AM EDT OUTSIDE MR HEAD/NECK REPORT ONLY Routine 07/05/2025 1:22 PM EDT OCT, OPTIC NERVE - OU - BOTH EYES Routine 06/10/2025 9:16 AM EDT Edema of optic disc of right eye FUNDUS PHOTOS - OU - BOTH EYES Routine 05/30/2025 4:50 PM EDT Edema of optic disc of right eye CT ANGIO HEAD WITH AND WITHOUT CONTRAST Routine 05/12/2025 5:03 PM EDT Pulsatile tinnitus of right ear BASIC METABOLIC PANEL Routine 05/08/2025 1:39 PM EDT Pulsatile tinnitus of right ear BI MAMMOGRAM SCREENING WITH TOMOSYNTHESIS WITH CAD (BILATERAL) Routine 02/13/2025 4:05 PM EDT Screening mammogram for breast cancer HEPATITIS C ANTIBODY, QUALITATIVE Routine 12/09/2024 8:21 AM EDT Elevated LFTs LIPID PANEL Routine 08/26/2024 10:10 AM EST Pure hypercholesterolemia from Last 3 Months or Most Recently Relevant to Health Maintenance Results * PTT (07/17/2025 4:50 PM EDT) APTT 26.9 24.0 - 37.5 sec [facility] Comment:Check MAR for the ta rget range that is ordered for your patient. 07/17/2025 4:50 PM EDT 07/17/2025 6:46 PM EDT us Rafia Madsen MD LAB BLOOD ORDE RABLES Final Result [address] [address] * PT-INR (07/17/2025 4:50 PM EDT) PT 11.0 10.0 - 13.0 sec [facility] INR 1.0 0.9 - 1.1 [facility] 07/17/2025 4:50 PM EDT 07/17/2025 6:46 PM EDT us Rafia Madsen MD LAB BLOOD ORDE RABLES Final Result [address] [address] * CBC (07/17/2025 4:50 PM EDT) WBC 7.70 4.00 - 11.00 K/uL [facility] RBC 4.58 4.00 - 5.20 M/uL [facility] HGB 13.6 12.0 - 16.0 g/dL [facility] HCT 38.2 36.0 - 46.0 % [facility] PLT 259 150 - 450 K/uL [facility] MCV 83.4 80.0 - 100.0 fL [facility] MCH 29.7 27.0 - 31.0 pg [facility] MCHC 35.6 32.0 - 36.0 g/dL [facility] RDW 12.3 11.5 - 14.5 % [facility] MPV 9.7 8.4 - 12.0 fL [facility] NRBC 0.00 0.00 /100 WBCs [facility] ABSOLUTE NRBC 0.00 0.00 K/uL [facility] 07/17/2025 4:50 PM EDT 07/17/2025 6:46 PM EDT Rafia Madsen MD LAB BLOOD ORDE RABLES Final Result [address] [address] * OCT, Optic Nerve - OU - Both Eyes - Cirrus; RNFL, GCC; HD Radial Disc BELKIS (07/17/2025 3:38 PM EDT) Bong OREILLY - 07/18/2025 8:36 AM EDT Images from the original result were not included. Right Eye Retinal nerve fiber layer thickness (um): 91. Change: Stable. Optic nerve head and nerve fiber layer: Normal. Ganglion cell or retinal thickness: Normal. Left Eye Retinal nerve fiber layer thickness (um): 91. Change: Stable. Optic nerve head and nerve fiber layer: Normal. Ganglion cell or retinal thickness: Normal. Notes Rafia Madsen MD OPHTHALMOLOGY IMAGING Final Result [facility] * Lerma Visual Field - OU - Both Eyes (07/17/2025 3:22 PM EDT) HVF Mean Deviation (OS) - Left Eye -6.53 dB [facility] HVF Mean Deviation (OD) - Right Eye -11.12 dB [facility] Bong OREILLY - 07/18/2025 8:36 AM EDT Images from the original result were not included. Right Eye Pattern: 24-2. Strategy: LEROY - Fast. Reliability: Poor. Mean Deviation: -11.12 dB dB. Change: Baseline. Findings: Rim artifact. Left Eye Pattern: 24-2. Strategy: LEROY - Fast. Reliability: Poor. Mean Deviation: -6.53 dB dB. Change: Baseline. Findings: Superior altitudinal defect, Rim artifact. General Details Testing performed by: Anthony Pardo Notes Rafia Madsen MD OPHTHALMOLOGY IMAGING Final Result [facility] * Outside Imaging Report Only (07/14/2025 5:20 PM EDT) Historical Provider MD JONES XR CHEST Edited Re sult - Final * HM COLONOSCOPY FOR RESULT ENTRY ONLY (07/06/2025 8:09 AM EDT) Historical Provider HEALTH MAINTENANCE Final Result * Outside MR Head/Neck Report Only (07/05/2025 1:22 PM EDT) Historical Provider MD JONES MR HEAD/NECK Final Re sult * OCT, Optic Nerve - OU - Both Eyes - Cirrus; RNFL, GCC (06/10/2025 9:16 AM EDT) Bong OREILLY - 06/10/2025 9:16 AM EDT Right Eye Quality: Good. Retinal nerve fiber layer thickness (um): 92. Change: Baseline. Optic Disk: Small. Optic nerve head and nerve fiber layer: Edema. Ganglion cell or retinal thickness: Normal. Left Eye Quality: Good. Retinal nerve fiber layer thickness (um): 97. Change: Baseline. Optic Disk: Small. Optic nerve head and nerve fiber layer: Edema. Ganglion cell or retinal thickness: Normal. Farzana Centeno OD OPHTHALMOLOGY IMAGING Final Res ult HARMONY * Fundus Photos - OU - Both Eyes (05/30/2025 4:50 PM EDT) Anatomical Region Laterality Modality Head Photography Narrative 05/30/2025 4:50 PM EDT Right Eye Disc findings include edema. Macula findings include normal observations. Vessel findings include normal observations. Periphery findings include normal observations. Left Eye Disc findings include edema. Macula findings include normal observations. Vessel findings include normal observations. Periphery findings include normal observations. Farzana Centeno OD OPHTHALMOLOGY IMAGING Edited Re sult - Final * CT ANGIO HEAD WITH AND WITHOUT CONTRAST (05/12/2025 5:03 PM EDT) Anatomical Region Laterality Modality Neck Computed Tomogra phy 05/15/2025 3:58 PM EDT Impressions 05/15/2025 4:11 PM EDT 1. No intracranial aneurysm, arteriovenous malformation, large vessel occlusion or stenosis. No evidence of dural AV fistula. 2. No evidence of venous sinus thrombosis. Severe narrowing of the bilateral transverse dural venous sinuses and right sigmoid sinus due to large arachnoid granulations. Partially empty expanded sella. These findings may be related to idiopathic intracranial hypertension. Narrative 05/15/2025 4:[address] ANGIO HEAD WITH AND WITHOUT CONTRAST Referring clinician's provided indication for this examination in Epic: * Tinnitus, pulsatile; right sided x 10 days TECHNIQUE: Multidetector-row CTA of the head was performed before and after administration of intravenous contrast using tailored dose modulation techniques. Images were reconstructed in the axial, coronal, and sagittal planes, including angiographic image post-processing. 3D angiographic images with reformatting and post- processing reconstructions were performed and interpreted. COMPARISON: FINDINGS: HEAD CT: Brain Parenchyma: Normal. No midline shift, mass effect, parenchymal hemorrhage, or evidence of acute territorial infarct. No enhancing abnormality. Ventricular System and Extra-Axial Spaces: There is a partially empty expanded sella. The ventricles appear normal. No extra-axial fluid collections. Basal cisterns are patent. No hydrocephalus. Osseous and Extracranial Structures: There is mucosal retention cyst within left maxillary sinus. Is mild mucosal thickening within the maxillary sinuses and frontoethmoidal junctions. The mastoids are clear. No suspicious bone lesion. CTA HEAD: Anterior Circulation: Normal. No aneurysm, arteriovenous malformation or thrombosis. The intracranial internal carotid arteries are patent. The anterior and middle cerebral arteries are patent. An anterior communicating artery is present. Posterior Circulation: Normal. No aneurysm, arteriovenous malformation or thrombosis. The intracranial vertebral arteries and the basilar are patent. The posterior cerebral arteries are patent bilaterally. Posterior communicating arteries are present bilaterally. Venous Structures: There is narrowing of the bilateral distal transverse dural venous sinus and right sigmoid sinus due to large arachnoid granulations. No evidence of venous sinus thrombosis. Procedure Note Isreal Padilla, DO - 05/15/2025 CT ANGIO HEAD WITH AND WITHOUT CONTRAST Referring clinician's provided indication for this examination in Epic: *Tinnitus, pulsatile; right sided x 10 days TECHNIQUE: Multidetector-row CTA of the head was performed before and afteradministration of intravenous contrast using tailored dose modulationtechniques. Images were reconstructed in the axial, coronal, and sagittalplanes, including angiographic image post-processing. 3D angiographicimages with reformatting and post-processing reconstructions wereperformed and interpreted. COMPARISON: FINDINGS: HEAD CT: Brain Parenchyma: Normal. No midline shift, mass effect, parenchymalhemorrhage, or evidence of acute territorial infarct. No enhancingabnormality. Ventricular System and Extra-Axial Spaces: There is a partially emptyexpanded sella. The ventricles appear normal. No extra-axial fluidcollections. Basal cisterns are patent. No hydrocephalus. Osseous and Extracranial Structures: There is mucosal retention cystwithin left maxillary sinus. Is mild mucosal thickening within themaxillary sinuses and frontoethmoidal junctions. The mastoids are clear.No suspicious bone lesion. CTA HEAD: Anterior Circulation: Normal. No aneurysm, arteriovenous malformation orthrombosis. The intracranial internal carotid arteries are patent. Theanterior and middle cerebral arteries are patent. An anteriorcommunicating artery is present. Posterior Circulation: Normal. No aneurysm, arteriovenous malformation orthrombosis. The intracranial vertebral arteries and the basilar arepatent. The posterior cerebral arteries are patent bilaterally. Posteriorcommunicating arteries are present bilaterally. Venous Structures: There is narrowing of the bilateral distal transversedural venous sinus and right sigmoid sinus due to large arachnoidgranulations. No evidence of venous sinus thrombosis. IMPRESSION: 1. No intracranial aneurysm, arteriovenous malformation, large vesselocclusion or stenosis. No evidence of dural AV fistula. 2. No evidence of venous sinus thrombosis. Severe narrowing of thebilateral transverse dural venous sinuses and right sigmoid sinus due tolarge arachnoid granulations. Partially empty expanded sella. Thesefindings may be related to idiopathic intracranial hypertension. Mike Melo MD IMG CT HEAD/NECK Final Result * (ABNORMAL) Basic metabolic panel (05/08/2025 1:39 PM EDT) SODIUM 140 133 - 146 mmol/L [facility] CHLORIDE 99 96 - 108 mmol/L [facility] POTASSIUM 3.1(L) 3.3 - 5.1 mmol/L [facility] CO2 26 21 - 35 mmol/L [facility] BUN 12 6 - 19 mg/dL [facility] CREATININE 0.70 0.5 - 1.5 mg/dL [facility] GLUCOSE 98 70 - 99 mg/dL [facility] CALCIUM 9.2 8.4 - 10.3 mg/dL [facility] EGFR 108 >59 mL/min/1.7 3m2 [facility] Comment:Estimated glomerular filtration rate calculated using the CKD-EPI refit equation. ANION GAP 18 10 - 20 mmol/L [facility] Blood 05/08/2025 1:39 PM EDT 05/08/2025 1:42 PM EDT Mike Melo MD LAB BLOOD ORDERABLES Final Resul t [address] [address] * BI MAMMOGRAM SCREENING WITH TOMOSYNTHESIS WITH CAD (BILATERAL) (02/13/2025 4:05 PM EDT) Anatomical Region Laterality Modality Breast Left, Breast Right, Breast Bilateral Bila teral Mammography 02/14/2025 11:2 2 AM EDT Impressions 02/14/2025 11:23 AM EDT No mammographic evidence of malignancy in either breast. Annual screening mammography is recommended. BI-RADS 1 NEGATIVE The patient will be notified of the results and recommendations. Narrative 02/14/2025 11:23 AM EDT BI MAMMOGRAM SCREENING WITH TOMOSYNTHESIS WITH CAD (BILATERAL) Additional patient information: Screening. COMPARISON: Comparison is made with relevant prior imaging. Breast composition: There are scattered areas of fibroglandular density. FINDINGS: No abnormal masses, suspicious calcifications, or other significant findings are identified mammographically in either breast. There has been no significant interval change. Procedure Note Michelle Feliz MD - 02/14/2025 BI MAMMOGRAM SCREENING WITH TOMOSYNTHESIS WITH CAD (BILATERAL) Additional patient information: Screening. COMPARISON: Comparison is made with relevant prior imaging. Breast composition: There are scattered areas of fibroglandular density. FINDINGS: No abnormal masses, suspicious calcifications, or other significantfindings are identified mammographically in either breast. There has been no significant interval change. IMPRESSION: No mammographic evidence of malignancy in either breast. Annual screening mammography is recommended. BI-RADS 1 NEGATIVE The patient will be notified of the results and recommendations. us Steffi White BLOCK SPLITTER OPERATOR IMG MG EXAMS Final Resul t * Hepatitis C antibody, qualitative (12/09/2024 8:21 AM EDT) HCV NON-REACTIV E NON-REACTI VE [facility] Blood 12/09/2024 8:21 AM EDT 12/09/2024 8:26 AM EDT us Moo Baez PA-C LAB BLOOD ORDERABLES Final Re sult Performing Organization Address [facility]/ZIP Co de Phone Number [address] [address] * (ABNORMAL) Lipid panel (08/26/2024 10:10 AM EST) HDL 46 mg/dL [facility] Comment: Interpretation <40 mg/dL: Low HDL cholesterol (major risk factor for CHD) Greater than or equal to 60 mg/dL: High HDL cholesterol ( negative risk factor for CHD) HDL - cholesterol is affected by a number of factors, e.g. smoking, excerise, hormones, sex and age. CHOLESTEROL 231 0 - 240 mg/dL [facility] TRIGLYCERIDES 159 30 - 160 mg/dL [facility] LDL 153(H) 50 - 129 mg/dL [facility] Comment: LDL levels in terms of risk for coronary heart disease: <100 mg/dL: Optimal 100-129 mg/dL: Near or above optimal 130-159 mg/dL: Borderline high 160-189 mg/dL: High >190 mg/dL: Very High CARDIAC RISK RATIO 5.0(H) 3.3 - 4.4 C [facility] Blood 08/26/2024 10:1 0 AM EST 08/26/2024 10:12 AM EST us Steffi White BLOCK SPLITTER OPERATOR LAB BLOOD ORDERABLES Final Result Performing Organization Address [facility]/ZIP Co de Phone Number [address] [address] from Last 3 Months or Most Recently Relevant to Health Maintenance Insurance [facility] Member Subscriber Plan / Payer (Ef fective 2003-Present) Name:Chantelle Hoffmann Relation to Subscriber:Spouse Name:MONO HOFFMANN Date of :1900 (Home) Address: [address] [place], [place] Payer ID:[id number] (NAIC) Type:O Address: [address] [place], [place] [facility] Member Subscriber Plan / Payer ( fective 2003-Present) Name:Chantelle Hoffmann Relation to Subscriber:Spouse Name:MONO HOFFMANN Date of :1900 (Home) Address: [address] [place], [place] Payer ID:[id number] (NAIC) Type:HMO Address: [address] [place], [place] [facility] Care Teams Industrial Yard Brake Coupler Relationship Specialty Start Date End Date Moo Baez PA-C [address] [place] [address] [email or web address] PCP - General Physician Floor Clerk 11/21/24 Von Elizabeth MD [address] [place] [address] [email or web address] Insurance Assigned Provider 01/02/24 Additional Source Comments The information contained in this document represents components of the legal health record. It is not the complete legal health record.[facility]
--- OUTSIDE RECORDS SUMMARY | 2025-07-26 20:11 | XMS_ITS | Encounter Summary ---
Author Organization [facility] Address [address] [place] [address] Phone Care Team Providers Care Policyholder Information Clerk Name Role Phone Von Elizabeth MD Primary Care Provider [phone] Reason for Visit * Reason Comments Med Refill Encounter Details Date Type Department Care Team (Late st Contact Info) Description 07/29/2022 Refill [facility] [address] [place] [phone] Jaden Barber MD Social History Tobacco Use Types Packs/Day Years [...] as of this encounter Plan of Treatment Not on file documented as of this encounter Visit Diagnoses Not on filedocumented in this encounter Care Teams Policyholder Information Clerk Relationship Specialty Start Date End Date Von Elizabeth MD [address] [place] [address] PCP - General 10/08/20 documented as of this encounter
--- OUTSIDE RECORDS SUMMARY | 2025-07-26 20:11 | XMS_ITS | Encounter Summary ---
Author Organization [facility] Address [address] [place] [address] Phone Care Team Providers Care Technical Specialist Cytology Name Role Phone Von Elizabeth MD Unavailable [phone] Jenny Salazar CHIEF SALES OFFICER Primary Care Provider [phone] Steffi White [employer]ODU[employer] MAKER Primary Care Provider [phone] Pcp, Unknown Primary Care Provider Moo Leblanc PA-C Primary Care Provider [phone] Encounter Details Date Type Department Care Team (Late st Contact Info) Description 12/03/2020 Ancillary Orders [facility] Internal Medicine [address] [place] [address] Jenny Salazar, CHIEF SALES OFFICER [address] [address] [email or web address] Social History Tobacco Use Types Packs/Day Years [...] Description 10/11/2025 3:20 PM EST Office Visit [facility] Internal Medicine [address] [place], [place] [phone] Moo Baez PA-C [address] [place] [address] 10/25/2025 4:00 PM EST Office Visit [facility] Medical Weight Management [address] [facility] [address] [place] [address] Fanny Hand DO [address] [place] [address] [email or web address] 11/20/2025 10:45 AM EST Office Visit [facility] [address] [facility] 9th [place] [address] Rafia Taylor MD [address] [place] [address] [email or web address] 11/29/2025 9:00 AM EST Nutrition [facility] Medical Weight Management [address] [facility] [address] [place] [address] Chantelle Connors LDN [address] [place] [address] [email or web address] documented as of this encounter Visit Diagnoses [...] documented as of this encounter Care Teams Technical Specialist Cytology Relationship Specialty Start Date End Date Jenny Salazar, CHIEF SALES OFFICER [address] [place], [place] [email or web address] PCP - General Family Medicine 10/11/20 12/03/23 Steffi White FNP [address] [address] PCP - General Nurse Practitioner 08/22/24 10/23/24 Pcp, Unknown PCP - General 10/24/24 11/20/24 Moo Baez PA-C [address] [place] [address] [email or web address] PCP - General Physician Metal Slitter 11/21/24 Von Elizabeth MD [address] [place] [address] [email or web address] Insurance Assigned Provider 01/02/24 documented as of this encounter Additional Source Comments The information contained in this document represents components of the legal health record. It is not the complete legal health record.[facility]
--- OUTSIDE RECORDS SUMMARY | 2025-07-26 20:11 | XMS_ITS | Encounter Summary ---
Author Organization [facility] Address [address] [facility] [address] [place] [address] Phone Care Team Providers Care Recreational Resort Manager Name Role Phone Von Elizabeth MD Unavailable [phone] Steffi White Primary Care Provider [phone] Pcp, Unknown Primary Care Provider UnavailMoo Fleming PA-C Primary Care Provider [phone] Encounter Details Date Type Department Care Team (Late st Contact Info) Description 08/26/2024 Transcribe Orders [facility] Specimen Processing 30 [place] [address] Steffi White FNP [address] [facility] [address] [place] [address] [email or web address] Social History Tobacco Use Types Packs/Day Years [...] high school, GED, job training, learning the Kosovan language, technical skills, or developing parenting skills)? [...] ecorded Denied Basic Needs Not on file 08/22/2024 In the past 12 months have y ou been in a relationship with a person who hurts, threatens, or tries to control you? No 08/22/2024 Worried food would run out Not on file 08/22 In the past 12 months have y ou been in a relationship with a person who hurts, threatens, or tries to control you? No 08/22/2024 Comments No Sex and Gender Information Value Date Recorded Sex Assigned at Not on file Legal Sex Female 9:24 PM EDT Gender Identity Not on file Sexual Orientation Not on file documented as of this encounter Plan of Treatment Upcoming Encounters Date Type Department Care Team (Late st Contact Info) Description 10/11/2025 3:20 PM EST Office Visit [facility] Internal Medicine [address] [facility] [place] [address] Moo Baez PA-C 40 [place] [address] 10/25/2025 4:00 PM EST Office Visit [facility] Medical Weight Management [address] [facility] [address] [place] [address] Fanny Hand DO [address] [place] [address] [email or web address] 11/20/2025 10:45 AM EST Office Visit [facility] [address] [facility] 9th [place] [address] Rafia Taylor MD [address] [place] [address] [email or web address] 11/29/2025 9:00 AM EST Nutrition [facility] Medical Weight Management [address] [facility] [address] [place] [address] Chantelle Connors LDN [address] [place] [address] [email or web address] documented as of this encounter Visit Diagnoses Not on filedocumented in this encounter Additional Health Concerns Assessment Noted Time PHQ-2 Depression Total Score: 0 08/22/20 24 2:44 PM EST documented as of this encounter Care Teams Recreational Resort Manager Relationship Specialty Start Date End Date Steffi White FNP [address] [address] PCP - General Nurse Practitioner 08/22/24 10/23/24 Pcp, Unknown PCP - General 10/24/24 11/20/24 Moo Baez PA-C [address] [place] [address] [email or web address] PCP - General Physician Refinery Operator Reforming Unit 11/21/24 Von Elizabeth MD [address] [place] [address] [email or web address] Insurance Assigned Provider 01/02/24 documented as of this encounter Additional Source Comments The information contained in this document represents components of the legal health record. It is not the complete legal health record.[facility]
--- OUTSIDE RECORDS SUMMARY | 2025-07-26 20:11 | XMS_ITS ---
Author Name [facility] Organization Unknown History of Medication Use Medication Directions Dispensed Refills Start Date End Date Stat acetaminophen (TYLENOL) 500 MG tablet Take 1-2 tablets (500-1,000 mg total) by mouth every 6 (six) hours as needed for pain (Max 6 tablets/24 hrs) for up to 7 days 03/23/2025 active benzonatate (TESSALON) 100 MG capsule Take 1 capsule (100 mg total) by mouth 3 (three) times a day as needed for cough for up to 7 days 03/23/2025 active guaiFENesin (MUCINEX) 600 mg Ta12 Take 600-1,200 mg by mouth 2 (two) times a day as needed (Cough) for up to 7 days Max dose 2,400mg per day. 03/23/2025 active labetaloL (NORMODYNE) 200 MG tablet TAKE 1 TABLET TWICE DAILY. 07/14/2012 active sertraline (ZOLOFT) 50 MG tablet Take 1.5 tablets (75 mg total) by mouth 07/14/2012 active chlorthalidone (HYGROTEN) 25 MG tablet TAKE 1 TABLET BY MOUTH EVERY DAY active losartan (COZAAR) 50 MG tablet TAKE 1 TABLET BY MOUTH TWICE A DAY active Problems Problem Status Onset Date Problem Type Date of Resolution Source Acute cough active EncounterDiagnosisAct [facility] Laryngitis active EncounterDiagnosisAct [facility] Acute pharyngitis, unspecified etiology active EncounterDiagnosisAct [facility] Encounters Encounter Type Encounter Reason Primary Diagnosis Location Date Ambulatory Mouth or throat complaint Acute pharyngitis, unspecified [facility] 03/23/2025 Care Team Organization Name Specialty Phone Email Start Date End Da te [facility] NO PCP Primary Care 03/23
--- OUTSIDE RECORDS SUMMARY | 2025-07-26 20:12 | XMS_ITS | Encounter Summary ---
Author Organization [facility] Address [address] [address] Phone Care Team Providers Care Director Targeted Marketing Name Role Phone Von Elizabeth MD Unavailable [phone] Moo Baez PA-C Primary Care Provider [phone] Encounter Details Date Type Department Care Team (Late st Contact Info) Description 07/06/2025 Orders Only [facility] Internal Medicine [address] [place] [address] Provider, MD Inés [address] [place], [place] [id number] Social History Tobacco Use Types Packs/Day Years [...] high school, GED, job training, learning the Egyptian language, technical skills, or developing parenting skills)? [...] Description 10/11/2025 3:20 PM EST Office Visit [facility] Internal Medicine 40 [place] [address] Moo Baez PA-C 40 [place] [address] [email or web address] 10/25/2025 4:00 PM EST Office Visit [facility] Medical Weight Management [address] [facility] [address] [place] [address] Fanny Hand DO 221 [place] [address] [email or web address] 11/20/2025 10:45 AM EST Office Visit [facility] Medicine [address] [facility] 9th [place] [address] Rafia Taylor MD [address] [place] [address] [email or web address] 11/29/2025 9:00 AM EST Nutrition [facility] Medical Weight Management [address] [facility] [address] [place] [address] Chantelle Connors LDN [address] [place] [address] [email or web address] documented as of this encounter Procedures Procedure Name Priority Date/Time Associated Diagnosis Comments COLONOSCOPY FOR RESULT ENTRY ONLY Routine 07/06/2025 8:09 AM EDT documented in this encounter Results * HM COLONOSCOPY FOR RESULT ENTRY ONLY (07/06/2025 8:09 AM EDT) us Historical Provider HEALTH MAINTENANCE Final Result documented in this encounter Visit Diagnoses Not on filedocumented in this encounter Additional Health Concerns Assessment Noted Time PHQ-2 Depression Total Score: 2 12/13/19 25 7:26 PM EDT documented as of this encounter Care Teams Director Targeted Marketing Relationship Specialty Start Date End Date Moo Baez PA-C [address] [place] [address] PCP - General Physician Refund Clerk 11/21/24 Von Elizabeth MD [address] [place] [address] [email or web address] Insurance Assigned Provider 01/02/24 documented as of this encounter Additional Source Comments The information contained in this document represents components of the legal health record. It is not the complete legal health record.[facility]
--- OUTSIDE RECORDS SUMMARY | 2025-07-26 20:12 | XMS_ITS | Encounter Summary ---
Author Organization [facility] Address [address] [address] Phone Care Team Providers Care Scalp Treatment Specialist Name Role Phone Von Elizabeth MD Unavailable [phone] Moo Baez PA-C Primary Care Provider [phone] Encounter Details Date Type Department Care Team (Late st Contact Info) Description 07/14/2025 Orders Only [facility] Internal Medicine [address] [place] [address] Provider, MD Inés [address] [place], [place] [id number] Social History Tobacco Use Types Packs/Day Years [...] high school, GED, job training, learning the Macedonian language, technical skills, or developing parenting skills)? [...] Description 10/11/2025 3:20 PM EST Office Visit [facility] Internal Medicine [address] [place] [address] Moo Baez PA-C [address] [place] [address] [email or web address] 10/25/2025 4:00 PM EST Office Visit [facility] Medical Weight Management [address] [facility] 2nd [place] [address] Fanny Hand DO 221 [place] [address] [email or web address] 11/20/2025 10:45 AM EST Office Visit [facility] [address] [facility] 9th [place] [address] Rafia Taylor MD [address] [place] [address] [email or web address] 11/29/2025 9:00 AM EST Nutrition [facility] Medical Weight Management [address] [facility] [address] [place] [address] Chantelle Connors LDN [address] [place] [address] [email or web address] documented as of this encounter Procedures Procedure Name Priority Date/Time Associated Diagnosis Comments OUTSIDE IMAGING Routine 07/14/2025 5:20 PM EDT documented in this encounter Results * Outside Imaging Report Only (07/14/2025 5:20 PM EDT) us Historical Provider MD JONES XR CHEST Edited Re sult - Final documented in this encounter Visit Diagnoses Not on filedocumented in this encounter Additional Health Concerns Assessment Noted Time PHQ-2 Depression Total Score: 2 12/13/19 7:26 PM EDT documented as of this encounter Care Teams Scalp Treatment Specialist Relationship Specialty Start Date End Date Moo Baez PA-C [address] [place] [address] PCP - General Physician Card Checker 11/21/24 Von Elizabeth MD [address] [place] [address] [email or web address] Insurance Assigned Provider 01/02/24 documented as of this encounter Additional Source Comments The information contained in this document represents components of the legal health record. It is not the complete legal health record.[facility]
--- OUTSIDE RECORDS SUMMARY | 2025-07-26 20:12 | XMS_ITS | Encounter Summary ---
Author Organization [facility] Address [address] [address] Phone Care Team Providers Care Company Tanker Truck Driver Name Role Phone Von Elizabeth MD Unavailable [phone] Moo Baez PA-C Primary Care Provider [phone] Reason for Referral * MRI/CAT Scan - Closed Specialty Diagnoses / Procedures Referred By Contac t Referred To Contact Radiology Procedures Outside MR Head/Neck Report Only [facility] Internal Medicine [address] [place] [address] Phone: tel: fax: Referral ID Status Reason Start Date Expiration Date Visits Re quested Visits Authorized [id number] Closed 07/05/2025 1 1 Encounter Details Date Type Department Care Team (Late st Contact Info) Description 07/05/2025 Orders Only [facility] Internal Medicine [address] [place] [address] Inés Herbert MD [address] [place] [address] Social History Tobacco Use Types Packs/Day Years [...] high school, GED, job training, learning the Omani language, technical skills, or developing parenting skills)? [...] Description 10/11/2025 3:20 PM EST Office Visit [facility] [address] [place] [address] Moo Baez PA-C [address] [place] [address] [email or web address] 10/25/2025 4:00 PM EST Office Visit [facility] Medical Weight Management [address] [facility] 2nd [place] [address] Fanny Hand DO [address] [place] [address] [email or web address] 11/20/2025 10:45 AM EST Office Visit [facility] [address] [facility] 9th [place] [address] Rafia Taylor MD 243 [place] [address] [email or web address] 11/29/2025 9:00 AM EST Nutrition [facility] Medical Weight Management [address] [facility] [address] [place] [address] Chantelle Connors LDN [address] [place] [address] [email or web address] documented as of this encounter Procedures Procedure Name Priority Date/Time Associated Diagnosis Comments OUTSIDE MR HEAD/NECK REPORT ONLY Routine 07/05/2025 1:22 PM EDT documented in this encounter Results * Outside MR Head/Neck Report Only (07/05/2025 1:22 PM EDT) us Historical Provider MD JONES MR HEAD/NECK Final Re sult documented in this encounter Visit Diagnoses Not on filedocumented in this encounter Additional Health Concerns Assessment Noted Time PHQ-2 Depression Total Score: 2 12/13/19 25 7:26 PM EDT documented as of this encounter Care Teams Company Tanker Truck Driver Relationship Specialty Start Date End Date Moo Baez PA-C [address] [place] [address] PCP - General Physician Child Attendant 11/21/24 Von Elizabeth MD [address] [place] [address] Insurance Assigned Provider 01/02/24 documented as of this encounter Additional Source Comments The information contained in this document represents components of the legal health record. It is not the complete legal health record.[facility]
--- OUTSIDE RECORDS SUMMARY | 2025-07-26 20:12 | XMS_ITS | Encounter Summary ---
Author Organization [facility] Address [address] [facility] [address] [place] [address] Phone Care Team Providers Care Gold Beater Name Role Phone Von Elizabeth MD Unavailable [phone] Steffi White HYDROGEN PLANT OPERATOR Primary Care Provider [phone] Pcp, Unknown Primary Care Provider UnavailMoo Fleming PA-C Primary Care Provider [phone] Encounter Details Date Type Department Care Team (Late st Contact Info) Description 08/22/2024 Procedure Pass [facility], [facility] [address] [place] [address] Social History Tobacco Use Types Packs/Day Years [...] high school, GED, job training, learning the Nauruan language, technical skills, or developing parenting skills)? [...] 10/11/2025 3:20 PM EST Office Visit Marissa Cook [facility] Internal Medicine [address] [place] [address] Moo Baez PA-C [address] [place] [address] [email or web address] 10/25/2025 4:00 PM EST Office Visit [facility] Medical Weight Management [address] [facility] 2[address] [place] [address] Fanny Hand DO [address] [place] [address] [email or web address] 11/20/2025 10:45 AM EST Office Visit TAMANNAAnne Olivas [facility] [address] [facility] 9th [place] [address] Rafia Taylor MD [address] [place] [address] [email or web address] 11/29/2025 9:00 AM EST Nutrition [facility] Medical Weight Management [address] [facility] [address] [place] [address] Chantelle Connors LDN [address] [place] [address] [email or web address] documented as of this encounter Visit Diagnoses Not on filedocumented in this encounter Additional Health Concerns Assessment Noted Time PHQ-2 Depression Total Score: 2 12/13/19 25 7:26 PM EDT documented as of this encounter Care Teams Gold Beater Relationship Specialty Start Date End Date Stfefi White FNP [address] [place] [address] PCP - General Nurse Practitioner 08/22/24 10/23/24 Pcp, Unknown PCP - General 10/24/24 11/20/24 Moo Baez PA-C [address] [place] [address] PCP - General Physician Mud Jack Operator 11/21/24 Von Elizabeth MD [address] [place] [address] [email or web address] Insurance Assigned Provider 01/02/24 documented as of this encounter Additional Source Comments The information contained in this document represents components of the legal health record. It is not the complete legal health record.[facility]
--- OUTSIDE RECORDS SUMMARY | 2025-07-26 20:12 | XMS_ITS | Encounter Summary ---
Author Organization [facility] Address [address] [facility] [address] [place] [address] Phone Care Team Providers Care County Auditor Name Role Phone Von Elizabeth MD Unavailable [phone] Moo Baez PA-C Primary Care Provider [phone] Encounter Details Date Type Department Care Team (Late st Contact Info) Description 04/25/2025 Procedure Pass [facility], Ct Scan - [address] [address] Social History Tobacco Use Types Packs/Day Years [...] high school, GED, job training, learning the Cameroonian language, technical skills, or developing parenting skills)? [...] Description 10/11/2025 3:20 PM EST Office Visit [facility] [place] Internal Medicine [address] [place] [address] Moo Baez PA-C [address] [place] [address] [email or web address] 10/25/2025 4:00 PM EST Office Visit [facility] Medical Weight Management [address] [address] Johnred Fanny, DO [address] [place] [address] [email or web address] 11/20/2025 10:45 AM EST Office Visit TAMANNA [facility] [address] [facility] 9th [place] [address] Rafia Taylor MD [address] [place] [address] [email or web address] 11/29/2025 9:00 AM EST Nutrition [facility] Medical Weight Management [address] [facility] [address] [place] [address] Waylon Chantelle Priya LDN [address] [place] [address] [email or web address] documented as of this encounter Visit Diagnoses Not on filedocumented in this encounter Additional Health Concerns Assessment Noted Time PHQ-2 Depression Total Score: 2 12/13/19 25 7:26 PM EDT documented as of this encounter Care Teams County Auditor Relationship Specialty Start Date End Date Moo Baez PA-C [address] [place] [address] PCP - General Physician Division Commander 11/21/24 Von Elizabeth MD [address] [place] [address] Insurance Assigned Provider 01/02/24 documented as of this encounter Additional Source Comments The information contained in this document represents components of the legal health record. It is not the complete legal health record.[facility]
== END 2025-07-26 16:50 | disposition home or self-care (01) ==
LOC: HO.HKA 16:16
PROVIDERS: PCP Internal Medicine; Visit Provider Internal Medicine Nephrology
DX: I10 Essential (primary) hypertension (principal)
CPT/HCPCS: 99214

== ENCOUNTER 2025-09-20 09:59 | Outpatient (AMB) | payer BC, SELFPAY ==
[2025-09-20 10:06] VITALS: BP 118/84; PULSE 73; O2SAT 98; BMI 32.8
--- NOTE | 2025-09-20 10:06 | HO.NEPHOV ---
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 She does not have any headache, visual disturbances, nausea, vomiting, orthostatic symptoms, diarrhea, pedal edema. She does not take excessive nonsteroidal anti-inflammatories or salt in the diet. She is compliant with her medications. Her renal functions have been normal. She does not check her blood pressure at home regularly. It has been at goal on the current medications. She had pulsatile tinnitus predominantly in the right ear with worsening headaches. 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 She was seen by post manager and was diagnosed as grade 1 papilledema. She has over 15 pound weight gain over last year. She has been started on Diamox 500 mg twice daily. She has been referred to see neuro ophthalmology for monitoring of papilledema. She has been on K replacements. She still has headaches and difficulty looking at light COUNTS INCLUDE 234 BEDS AT [facility] Medical History (Updated 08/14/25 @ 14:30 by Jaden Barber MD) Anxiety Migraines Heartburn Concussion Asthma, exercise induced History of intussusception HTN (hypertension) Surgical History History of surgery on arm Family History Father HTN (hypertension) Mother HTN (hypertension) Social History Alcohol intake: current Alcohol intake frequency: holidays/special occasions only Review of Systems Const All systems reviewed & are unremarkable except as noted in HPI and below Physical Exam Vital Signs: Last Vital Signs Pulse 73 09/20/25 10:06 BP 118/84 09/20/25 10:06 Pulse Ox 98 09/20/25 10:06 Oxygen Delivery Method Room Air 09/20/25 10:06 BMI result Body Mass Index 32.8 Const General: comfortable and no acute distress Orientation/consciousness: patient oriented x3 HEENT Head: Yes normocephalic Mouth: Normal oral and palatal mucosa present Eyes EOM: EOMs intact bilaterally Neck Neck: Yes supple Resp Auscultation: clear to auscultation bilaterally Cardio Jugular venous distension: no JVD Rate: regular rate GI Palpation (GI): Soft to palpation Auscultation: normal bowel sounds General: Yes no CVA tenderness Back/Spine/Pelvis Back: no CVA tenderness Skin General skin exam: no rashes or lesions noted Neuro General: patient oriented x3 and moves all extremities Extrem General: Yes no pedal edema Results Reviewed Nephrology Results: Sodium, (135-145) 138 mmol/L 07/16/24 Potassium, (3.3-5.1) 3.3 mmol/L 07/16/24 Chloride, (96-108) 102 mmol/L 07/16/24 Carbon Dioxide, (22-29) 29 mmol/L 07/16/24 BUN, (9-16) 11 mg/dL 07/16/24 Creatinine, (0.5-1.4) 0.71 mg/dL 07/16/24 Calcium, (8.4-10.2) 8.6 mg/dL 07/16/24 Urine Creatinine 236.36 mg/dL 07/16/24 Protein/Creatinin Ratio, (<0.2) 0.05 07/16/24 Assessment & Plan Assessment & Plan (1) HTN (hypertension): Code(s): I10 - Essential (primary) hypertension Category: Medical Qualifiers: Hypertension type: primary hypertension Qualified Code(s): I10 - Essential (primary) hypertension Plan Blood pressure is currently well controlled. Has history of hypokalemia due to chlorthalidone- On replacement No clinical signs of end-organ damage; May need to D/C chlorthalidone (She had COVID and blood pressure has been higher since & needed more medn) Continue her current medications for now Maintain lifestyle modification with low-sodium diet, weight loss and exercise Could continue Diamox ; F/U labs ordered Needs follow up imaging/ Neuro ophthal F/U; May need stenting- Needs to see Neuro IR( transverse sinus stenosis) All these have been discussed in detail. All questions answered;Follow-up appointment given Orders: Orders Electrolytes 1 Month I10 - Essential (primary) hypertension Blood Urea Nitrogen 1 Month I10 - Essential (primary) hypertension Creatinine 1 Month I10 - Essential (primary) hypertension Coding Level of Care Code Est Pt Level 4 (27469) Diagnoses Primary hypertension I10 Hypertension type: primary hypertension
--- OUTSIDE RECORDS SUMMARY | 2025-09-20 10:11 | XMS_ITS | Encounter Summary ---
Author Organization [facility]iet[facility] Address [address] [place] [address] Care Team Providers Care Cardiac Rehabilitation Specialist Name Role Phone Von Elizabeth MD Primary Care Provider [phone] Von Elizabeth MD Unavailable [phone] Von Elizabeth MD Primary Care Provider [phone] Encounter Details Date Type Department Care Team (Late st Contact Info) Description 09/05/2014 Clinical Conversion Encounter [place] [address] Patrick Garay PA [address] [place] [address] Social History Tobacco Use Types Packs/Day Years Used Date Smoking Tobacco: Never Assessed Comments Unknown Sex and Gender Information Value Date Recorded Sex Assigned at Female 09/27/2018 8:42 AM EST Legal Sex Female 2:16 PM EST Gender Identity Female 09/27/2018 8:42 AM EST Sexual Orientation Not on file documented as of this encounter Progress Notes * EUGENIA Rutledge - 11/24/2014 12:55 PM EST [id number],SHANNON [place]. NEUROSURGERY 09/05/2014 Name: CHANTELLE JOHNSON V LC#: [id number] : 1980 Visit ID: [id number] Second Visit ID: [id number] HISTORY OF PRESENT ILLNESS: This is a 34-year-old female who comes in for evaluation of left neck and shoulder pain. Symptoms began on August 03. She recalls that she woke up with a new onset of left neck and shoulder pain with radiation to the arm. Over the next few days, her pain progressively increased. She was seen by her PCP and provided with prescriptions for muscle relaxant, anti-inflammatories, and instructed to use heat and ice. Recently has started a course of physical therapy. At her presentation today, she describes left-sided neck pain radiating down to the shoulder and scapula, down the triceps into the thumb and forefinger. This pain is intermittent. Exacerbated with moving her head and with moving the arm. Most comfortable when she keeps her head in a neutral position. Also describes intermittent numbness and tingling radiating down the arm into the thumb and forefinger. Tingling tends to come on with an increase in pain. She feels that she may have some weakness in the left triceps. No gait instability, right upper extremity symptoms or bowel or bladder symptoms. She has just started a course of physical therapy. She is taking cyclobenzaprine 10 mg t.i.d., tramadol 50 mg t.i.d., Vicodin 5/325 one tab t.i.d. p.r.n. pain. She notes that she completed a Medrol Dosepak when she was initially seen by her PCP without significant improvement. At this point, she feels that her symptoms are continuing to worsen. PAST MEDICAL HISTORY: Hypertension. PAST SURGICAL HISTORY: Repair of left elbow ligaments. CURRENT MEDICATIONS: Benicar 20 mg daily, labetalol 200 mg b.i.d., cyclobenzaprine 10 mg t.i.d., Vicodin 5/325 t.i.d. p.r.n. pain, sertraline 100 mg daily, tramadol 50 mg q.6 hours. ALLERGIES: No known drug allergies. 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 Left-handed. Denies ever using tobacco. Denies being a victim of domestic violence or use of recreational drugs. Drinks alcohol only occasionally. FAMILY HISTORY: Positive for hypertension. PHYSICAL EXAMINATION: This is a pleasant, well-developed, well-nourished female, in no acute distress. Alert and oriented x3. She does appear quite uncomfortable. Somewhat limited range of motion of left upper extremity, but does appear to have full strength throughout except for mild weakness in the left triceps. Sensation to light touch is decreased along the left thumb and forefinger. Deep tendon reflexes are hyperreflexive throughout. Babinski downgoing bilaterally. 2 to 3 beats of clonus noted bilaterally. Clarissa is negative bilaterally. The patient has a normal gait. Able to walk on her heels and toes and in tandem independently. IMAGING: I personally reviewed outside cervical MRI. This is notable for moderate degenerative changes throughout the majority of the cervical spine associated with right-sided disk protrusion at C5-C6 and a broadbased left-sided disk protrusion at C6-C7 with narrowing of the left foramina. No cord signal change is noted. I reviewed these findings with the patient and her who accompanied her. I explained that her symptoms are likely associated with the findings at C6-C7. We discussed therapeutic options. At this point, she has failed more conservative therapy. I have referred her for a left C7-T1 interlaminar epidural steroid injection. I have asked her to follow up in 2 weeks' time. In the interim, I have recommended that she increase her pain medication for better management of her pain. I have referred her back to her PCP's office for further pain medication refills as needed. 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 We did briefly discuss the possibility of surgical intervention as well if conservative measures fail. EUGENIA Roman [phone] RK:ismael J: [id number] / [id number] CC: Von Elizabeth MD, <Primary Care Physician> THIS DOCUMENT WAS ELECTRONICALLY AUTHENTICATED BY EUGENIA Roman ON 09/11/2014 09:01:22 documented in this encounter Plan of Treatment Not on file documented as of this encounter Visit Diagnoses Not on filedocumented in this encounter Care Teams Cardiac Rehabilitation Specialist Relationship Specialty Start Date End Date Von Elizabeth MD PCP - General 08/07/14 05/23/25 Von Elizabeth MD [address] [place] [address] PCP - Insurance Assigned PCP 05/24/25 Von Elizabeth MD [address] [place] [address] PCP - General Internal Medicine 05/24/25 documented as of this encounter
--- OUTSIDE RECORDS SUMMARY | 2025-09-20 10:11 | XMS_ITS | Encounter Summary ---
Author Organization [facility]iet[facility] Address [address] [place] [address] Care Team Providers Care Classified Advertising Supervisor Name Role Phone Von Elizabeth MD Primary Care Provider [phone] Von Elizabeth MD Unavailable [phone] Von Elizabeth MD Primary Care Provider [phone] Encounter Details Date Type Department Care Team (Latest Contact Info) Description 06/12/2010 Clinical Conversion Encounter Department of Orthopedic Surgery ([address] [place] [address] [address] [place] [address], 2nd [place] [address] Kenya Eason NP [address] [place] [address] Disturbance of skin sensation Social History Tobacco Use Types Packs/Day Years Used Date Smoking Tobacco: Never Assessed Comments Unknown Sex and Gender Information Value Date Recorded Sex Assigned at Female 09/27/2018 8:42 AM EST Legal Sex Female 2:16 PM EST Gender Identity Female 09/27/2018 8:42 AM EST Sexual Orientation Not on file documented as of this encounter Progress Notes * Kenya Eason NP - 10/18/2014 3:03 PM EST [id number],SHANNON [place], [place]. ORTHOPEDIC SURGERY CHANTELLE JOHNSON V 06/12/2010 # [id number] : 1980 Second Visit ID: [id number] Visit ID: [id number] PROBLEM: Left ulnar neuropathy. HISTORY OF PRESENT ILLNESS: The patient presents today to discuss electrical studies. She had been wearing her splints and is more comfortable, but continues to have symptoms of ulnar nerve irritation. EMGs from yesterday 06/11 are without abnormality. PHYSICAL EXAMINATION: Unchanged. IMPRESSION: Ulnar nerve irritation. PLAN: Dr. Mcintyre feels she should continue conservative treatment. No surgical intervention at this time. No leaning on the elbow and try not to keep the elbow in a flexed position. Therefore, if symptoms increase, she will follow up at that time. Seen and examined with Dr. Mcintyre. Kenya Eason NP [phone] [id number] J: [id number] CC: Grisel Mcintyre MD, PhD, <Referring> Gordon Ohara MD, <Primary Care Physician> THIS DOCUMENT WAS ELECTRONICALLY AUTHENTICATED BY Kenya Eason NP ON 06/19/2010 12:54:35 PROGRESS NOTE [facility] * [address] [place] [address] * [phone] Page 1 of 1 documented in this encounter Plan of Treatment Not on file documented as of this encounter Procedures Procedure Name Priority Date/Time Associated Diagnosis Comments EMG, ROUTINE Routine 06/12/2010 10:00 AM EDT Disturbance of skin sensation documented in this encounter Results * EMG, routine (06/12/2010 10:00 AM EDT) Anatomical Region Laterality Modality Other 06/12/2010 10:0 0 AM EDT Narrative 06/12/2010 12:10 PM EDT A COMPLETE EMG REPORT CAN BE VIEWED IN [facility] (DOCUMENTUM) VIA [employer]. ELECTRODIAGNOSTIC IMPRESSION AND CLINICAL CORRELATION: NORMAL. THIS ELECTRODIAGNOSTIC STUDY DOES NOT SHOW EVIDENCE SUGGESTIVE OF A MONONEUROPATHY, PARTICULARLY LEFT ULNAR NEUROPATHY, A LEFT LOWER TRUNK MEDIAL CORD BRACHIAL PLEXOPATHY OR A LEFT C8-T1 RADICULOPATHY. us Ruben Mcintyre MD PhD NEUROLOGY ORDERABLES F inal Result documented in this encounter Visit Diagnoses Diagnosis Disturbance of skin sensation documented in this encounter Care Teams Classified Advertising Supervisor Relationship Specialty Start Date End Date Von Elizabeth MD PCP - General 08/07/14 05/23/25 Von Elizabeth MD [address] [place] [address] PCP - Insurance Assigned PCP 05/24/25 Von Elizabeth MD [address] [place] [address] PCP - General Internal Medicine 05/24/25 documented as of this encounter
--- OUTSIDE RECORDS SUMMARY | 2025-09-20 10:11 | XMS_ITS | Encounter Summary ---
Author Organization [facility] Address [address] [place] [address] Care Team Providers Care Desktop Support Specialist Name Role Phone Von Elizabeth MD Primary Care Provider [phone] Von Elizabeth MD Unavailable [phone] Von Elizabeth MD Primary Care Provider [phone] Encounter Details Date Type Department Care Team (Late st Contact Info) Description 07/14/2012 Clinical Conversion Encounter Department of Neurosurgery [address] [place] [address] Raad Almaguer, ANISHA [address] [place] [address] Lumbago Social History Tobacco Use Types Packs/Day Years Used Date Smoking Tobacco: Never Assessed Comments Unknown Sex and Gender Information Value Date Recorded Sex Assigned at Female 09/27/2018 8:42 AM EST Legal Sex Female 2:16 PM EST Gender Identity Female 09/27/2018 8:42 AM EST Sexual Orientation Not on file documented as of this encounter Progress Notes * Raad Almaguer NP - 11/12/2014 1:20 PM EST [id number],[facility] [place]. History of Present Illness Chantelle presents neurosurgery clinic today in consultation at the request of Dr. Rendon for a 1.5 year history of progressively worsening mid-low back pain. The patient has experienced progressively worsening low back pain which has evolved to incorporate proximal lower extremity discomfort left greater than right. Despite utilizing nonsteroidal anti-inflammatory medication, rest and applying heat her pain has worsened. She now is limited to how far she can walk due to the level of pain. She has undergone x-rays outside facility and comes neurosurgery for further workup. Active Problems 1. 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 354.2 2. Lateral Epicondylitis 726.32 3. Sprained Radial Collateral Ligament Of The Left Elbow 841.0 Past Medical History Arthrocentesis Injection Of Intermediate Joint Surgical History Elbow Repair Lateral Collateral Ligament, With Local Tissue Current Meds Benicar 20 MG Oral Tablet; TAKE 1 TABLET DAILY; Therapy: (Recorded:14Jul2012) to Benicar 20 MG Oral Tablet; TAKE 1 TABLET DAILY; Therapy: (Recorded:14Jul2012) to Hydrocodone-Acetaminophen 7.5-750 MG Oral Tablet; TAKE 1 TO 2 TABLETS EVERY 4 TO 6 HOURS NEEDED FOR PAIN; Therapy: 18Jan2010 to (Last Rx:18Jan2010) Jolivette TABS; TAKE 1 TABLET DAILY; Therapy: (Recorded:14Jul2012) to Jolivette TABS; TAKE 1 TABLET DAILY; Therapy: (Recorded:14Jul2012) to Labetalol HCl 200 MG Oral Tablet; TAKE 1 TABLET TWICE DAILY; Therapy: (Recorded:14Jul2012) to Labetalol HCl 200 MG Oral Tablet; TAKE 1 TABLET TWICE DAILY; Therapy: (Recorded:87Bpt6000) to Meloxicam 7.5 MG Oral Tablet; TAKE 1 TABLET DAILY NEEDED; Therapy: (Recorded:14Jul2012) to Meloxicam 7.5 MG Oral Tablet; TAKE 1 TABLET DAILY NEEDED; Therapy: (Recorded:14Jul2012) to Oxycodone-Acetaminophen 5-325 MG Oral Tablet; TAKE 1 TO 2 TABLETS EVERY 4 TO 6 HOURS NEEDED FOR PAIN; Therapy: 26Dec2009 to (Last Rx:26Dec2009) Propoxyphene N-APAP 100-650 MG Oral Tablet; TAKE 1-2 TABLETS EVERY 4-6 HOURS NEEDED FOR PAIN; Therapy: 73Xke2646 to (Last Rx:25Nmv4353) Sertraline HCl 100 MG Oral Tablet; TAKE 1 TABLET DAILY; Therapy: (Recorded:14Jul2012) to Sertraline HCl 100 MG Oral Tablet; TAKE 1 TABLET DAILY; Therapy: (Recorded:14Jul2012) to Allergies No Known Drug Allergies Social History Former Smoker V15.82 Review of Systems Chief complaint of mid-low back pain. If she stands or sits for duration the pain is quite intolerable. In recent weeks it has awoken her from sleep. 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 She reports pain in the left thigh which descends down to the calf at times. It does not involve the feet. She does report numbness of both feet however she has a concurrent diagnosis of Raynaud's which is being worked up. She denies bowel/bladder changes. No gait instability. Vitals Elsie Vitals Data Includes: Current Encounter 14Jul2012 11:06AM Systolic: 130 Diastolic: 85 Heart Rate: 75 BMI Calculated: 27.6 BSA Calculated: 1.69 Height: 5 ft 2 in Weight: 150 lb Respiration: 16 Pain Score: 3 Pain Site: lower back Allergy Status Reviewed: Yes Safe at Home: Yes Physical Exam This is a well-nourished and developed well-appearing young woman in no apparent distress. On exam, the hip flexors, knee extensors, ankle dorsi and plantar flexors are full strength bilaterally throughout. Patellar and Achilles reflexes are 2+ symmetrically and toes are downgoing bilaterally. Her gait is symmetric and steady. She is able to stand and walk on heels and toes without difficulty. Sensation is grossly intact throughout. No objective pain medications. She is overall good general coordination. Results/Data We reviewed AP lateral x-rays completed outside facility. These demonstrate overall the alignment and spacing. At L4-L5 there is mild disc space narrowing. At L5-S1 there is evidence of potential pars defect. There is a very minimal grade 1 spondylolisthesis. There is no indication of subluxation, fracture or instability. Assessment 1. Lumbago 724.2 L5-S1 grade 1 spondylolisthesis, possible pars defect. Plan #1 dynamic lumbar x-rays #2 lumbar MRI #3 follow up with us in neurosurgery clinic for evaluation of radiographic data and treatment options. We discussed with the patient it is safe to continue with meloxicam as long as her stomach is okay with that medication. We'll reassess her overall condition and imaging data at next visit. The patient and her due seem entirely satisfied with the discussion and plan of care. Signatures Electronically signed by : RAAD ALMAGUER NP; Jul 14 2012 11:35AM (Author) Electronically signed by : RAAD ALMAGUER NP; Jun 27 2013 12:41PM (Author) documented in this encounter Plan of Treatment Not on file documented as of this encounter Procedures Procedure Name Priority Date/Time Associated Diagnosis Comments XR SPINE LUMBOSACRAL 2 OR 3 VW Routine 07/14/2012 12:17 PM EDT Lumbago documented in this encounter Results * XR Spine Lumbosacral 2 Or 3 Vw (07/14/2012 12:17 PM EDT) Anatomical Region Laterality Modality Lumbar Spine Radiographic Nimisha ging 07/14/2012 12:1 7 PM EDT Narrative 07/14/2012 5:13 PM EDT Dictated by senior resident care director Isreal Calderon MD Examination: AP, neutral lateral, lateral flexion, and lateral extension views of the lumbosacral spine. History: Low back pain. Comparison: No comparison. Findings: No acute fracture. Spondylolisthesis and spondylolysis at the L5-S1 level with suggestion of instability on flexion-extension views.Vertebral bodies are normal in plate. Disc spaces are age-appropriate. Sacroiliac joints are unremarkable. Soft tissues are unremarkable. Partially visualized lung bases are clear. Impression: Spondylolisthesis and spondylolysis at L5-S1 with suggestion of instability on flexion-extension views. I have reviewed all films of this examination and edited the above Resident dictation This document was electronically signed by AGUSTIN AYALA MD on 07/14/2012 17:13:00 Procedure Note Agustin Ayala - 11/28/2014 Dictated by senior resident care director Isreal Calderon MD Examination: AP, neutral lateral, lateral flexion, and lateral extension views of the lumbosacral spine. History: Low back pain. Comparison: No comparison. Findings: No acute fracture. Spondylolisthesis and spondylolysis at the L5-S1 level with suggestion of instability on flexion-extension views.Vertebral bodies are normal in plate. Disc spaces are age-appropriate. Sacroiliac joints are unremarkable. Soft tissues are unremarkable. Partially visualized lung bases are clear. Impression: Spondylolisthesis and spondylolysis at L5-S1 with suggestion of instability on flexion-extension views. I have reviewed all films of this examination and edited the above Resident dictation This document was electronically signed by AGUSTIN AYALA MD on 07/14/2012 17:13:00 us Christina Lei MD IMG DIAGNOSTIC IMAGING ORDERABLE S Final Result documented in this encounter Visit Diagnoses Diagnosis Lumbago documented in this encounter Care Teams Desktop Support Specialist Relationship Specialty Start Date End Date Von Elizabeth MD PCP - General 08/07/14 05/23/25 Von Elizabeth MD [address] [place] [id number] PCP - Insurance Assigned PCP 05/24/25 Von Elizabeth MD [address] [place] [phone] PCP - General Internal Medicine 05/24/25 documented as of this encounter
--- OUTSIDE RECORDS SUMMARY | 2025-09-20 10:11 | XMS_ITS | Encounter Summary ---
Author Organization [facility]iet[facility] Address [address] [place] [address] Care Team Providers Care Bonding Equipment Operator Name Role Phone Von Elizabeth MD Primary Care Provider [phone] Von Elizabeth MD Unavailable [phone] Von Elizabeth MD Primary Care Provider [phone] Encounter Details Date Type Department Care Team (Late st Contact Info) Description 07/22/2012 Clinical Conversion Encounter Department of Neurosurgery [address] [place] [address] Raad Almaguer, ANISHA [address] [place] [address] Social History Tobacco Use Types Packs/Day Years [...] Almaguer NP - 11/12/2014 1:20 PM EST [id number],[facility] [place], [place]. History of Present Illness Chantelle returns to neurosurgery clinic today. For a comprehensive history of present illness, please refer to my dictation completed on 07/14/2012. To summarize, the patient is a pleasant young woman with a multiyear history of low back pain. This has progressed over the last year. She underwent x-rays at outside facility reviewed at last visit demonstrating evidence at L5-S1 minimal spondylolisthesis with potential pars defect. Given the severity and duration of symptoms in addition to x-ray findings I asked the patient to undergo dynamic lumbar x-rays as well as lumbar MRI for further evaluation. She returns in routine followup today. Active Problems 1. 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 354.2 2. Lateral Epicondylitis 726.32 3. Lumbago 724.2 4. Sprained Radial Collateral Ligament Of The Left [...] Tablet; TAKE 1 TABLET TWICE DAILY; Therapy: (Recorded:79Sbj0847) to Meloxicam 7.5 MG Oral Tablet; TAKE 1 TABLET DAILY NEEDED; Therapy: (Recorded:14Jul2012) to Meloxicam 7.5 MG Oral Tablet; TAKE 1 TABLET DAILY NEEDED; Therapy: (Recorded:46Mxg0289) to Oxycodone-Acetaminophen 5-325 MG Oral Tablet; TAKE 1 TO 2 TABLETS EVERY 4 TO 6 HOURS NEEDED FOR PAIN; Therapy: 26Dec2009 to (Last Rx:26Dec2009) Propoxyphene N-APAP 100-650 MG Oral Tablet; TAKE 1-2 TABLETS EVERY 4-6 HOURS NEEDED FOR PAIN; Therapy: 76Pty2801 to (Last Rx:20Edo1102) Sertraline HCl 100 MG Oral Tablet; TAKE 1 TABLET DAILY; Therapy: (Recorded:14Jul2012) to Sertraline HCl 100 MG Oral Tablet; TAKE 1 TABLET DAILY; Therapy: (Recorded:14Jul2012) to Allergies No Known Drug Allergies Social History Former Smoker V15.82 Review of Systems There has been alteration since last visit. The patient continues to experience significant mid-low back pain. This is the chief complaint. At times the pain will evolve to incorporate the lower extremities however the majority of the pain is about the back. She denies bowel/bladder changes or incontinence. She denies gait instability. There is no numbness or weakness about the lower extremities. The back pain does limit her ambulatory duration. She notes she feels her back pain did worsen after childbirth. Vitals Elsie Vitals Data Includes: Current Encounter 22Jul2012 02:02PM Systolic: 119 Diastolic: 74 Heart Rate: 77 BMI Calculated: 27.6 BSA Calculated: 1.69 Height: 5 ft 2 in Weight: 150 lb Height Source: Stated Height Weight Source: Stated Weight Respiration: 16 Pain Score: 4 Pain Site: LBP Allergy Status Reviewed: Yes Safe at Home: Yes Physical Exam General: This is a well-nourished well-appearing young woman moderately obese in no apparent distress. On exam, hip flexors, knee extensors ankle dorsi and plantar flexors are full strength bilaterally throughout. Gait is mildly guarded. She appears mildly uncomfortable while walking in rising from a chair sitting position. She can heel and toe walk. Sensation is intact to light touch and proximal and distal lower extremities bilaterally. The patient has overall good general coordination with symmetric tone and bulk throughout. Results/Data AP lateral lumbar dynamic films and MRI study are reviewed with Dr. Osvaldo Briceño. These demonstrate evidence of bilateral pars defect L5. There is a grade 1 degenerative spondylolisthesis L5-S1. There is no evidence of neural tissue compression. There is minimal subluxation and flexion/extension. Assessment 1. Lumbar Spondylolisthesis (L5 - S1) 738.4 Bilateral L5 pars defect; grade 1 L5-S1 spondylolisthesis. Plan #1 facet block trial L5-S1 #2 radiofrequency ablation if palpable #3 physical therapy for core muscle strengthening. #4 work on weight loss for improvement of overall back pain symptoms I discussed with the patient should pain persist or worsen and to the future we could consider L5-S1 interbody fusion/fixation. However, this is an extensive procedure requiring significant recovery and should be considered as a last option. The patient seems entirely satisfied with the discussion and plan. I provided her my card and contact information with instruction to call should she require to meet with one of our complex spine surgeons for consideration of surgery, I would be happy to arrange this. Otherwise, she'll proceed with injection and physical therapy as outlined and followup into the future with neurosurgery as needed. Signatures Electronically signed by : RAAD ALMAGUER NP; Jul 22 2012 4:05PM (Author) Electronically signed by : RAAD ALMAGUER NP; Jun 27 2013 12:42PM (Author) documented in this encounter Plan of Treatment Not on file documented as of this encounter Visit Diagnoses Not on filedocumented in this encounter Care Teams Bonding Equipment Operator Relationship Specialty Start Date End Date Von Elizabeth MD PCP - General 08/07/14 05/23/25 Von Elizabeth MD [address] [place] [phone] PCP - Insurance Assigned PCP 05/24/25 Von Elizabeth MD [address] [place] [phone] PCP - General Internal Medicine 05/24/25 documented as of this encounter
--- OUTSIDE RECORDS SUMMARY | 2025-09-20 10:11 | XMS_ITS | Encounter Summary ---
Author Organization [facility] Address [address] [facility] [address] [place] [address] Phone Care Team Providers Care Medical Office Professional Instructor Name Role Phone Von Elizabeth MD Primary Care Provider [phone] Reason for Visit * Reason Comments Med Refill Encounter Details Date Type Department Care Team (Late st Contact Info) Description 07/29/2022 Refill [facility] [address] [place] [phone] Jaden Barber MD [address] [place] [id number] Social History Tobacco Use Types Packs/Day Years [...] on filedocumented in this encounter Care Teams Medical Office Professional Instructor Relationship Specialty Start Date End Date Von Elizabeth MD [address] [place] [address] PCP - General 10/08/20 documented as of this encounter
--- OUTSIDE RECORDS SUMMARY | 2025-09-20 10:11 | XMS_ITS | Encounter Summary ---
Author Organization Located Within [facility] Address [address] [facility] [address] [place] [address] Phone Care Team Providers Care Supervisor Tank House Name Role Phone Von Elizabeth MD Unavailable [phone] Jenny Salazar NP Primary Care Provider [phone] Steffi White ETCHED CIRCUIT PROCESSOR Primary Care Provider [phone] Pcp, Unknown Primary Care Provider Moo Leblanc PA-C Primary Care Provider [phone] Encounter Details Date Type Department Care Team (Late st Contact Info) Description 08/07/2023 Transcribe Orders Virtual Department [address] [place] [address] Jenny Salazar, ANISHA [address] [place] [address] [address] [place] [address] [email or web address] Breast screening (Primary Dx) Social History Tobacco [...] high school, GED, job training, learning the Portuguese language, technical skills, or developing parenting skills)? [...] Description 10/11/2025 3:20 PM EST Office Visit Located [facility] [address] [place] [address] Moo Baez PA-C [address] [place] [address] [email or web address] 10/25/2025 4:00 PM EST Office Visit [facility] [address] [place] [address] Fanny Hand DO [address] [place] [address] [email or web address] 11/20/2025 10:45 AM EST Office Visit [facility] [address] [facility] 9th [place] [address] Rafia Taylor MD [address] [place] [address] [email or web address] 11/29/2025 9:00 AM EST Nutrition [facility] [address] [facility] [address] [place] [address] Chantelle Connors LDN [address] [place] [address] [email or web address] documented as of this encounter Results * [...] documented as of this encounter Care Teams Supervisor Tank House Relationship Specialty Start Date End Date Jenny Salazar, SENIOR MATERIALS ANALYST [address] [place] [phone] PCP - General Family Medicine 10/11/20 12/03/23 Steffi White FNP [address] [place] [address] PCP - General Nurse Practitioner 08/22/24 10/23/24 Pcp, Unknown PCP - General 10/24/24 11/20/24 Moo Baez PA-C [address] [place] [phone] PCP - General Physician General Ledger Accountant 11/21/24 Von Elizabeth MD [address] [place] [phone] Insurance Assigned Provider 01/02/24 documented as of this encounter Additional Source Comments The information contained in this document represents components of the legal health record. It is not the complete legal health record.Located Within [facility]
--- OUTSIDE RECORDS SUMMARY | 2025-09-20 10:11 | XMS_ITS | Encounter Summary ---
Author Organization Antonietta Evens [facility] Address [address] [place] [address] Care Team Providers Care Chronic Disease Manager Name Role Phone Von Elizabeth MD Primary Care Provider [phone] Von Elizabeth MD Unavailable [phone] Von Elizabeth MD Primary Care Provider [phone] Encounter Details Date Type Department Care Team (Late st Contact Info) Description 09/26/2014 Clinical Conversion Encounter GENERAL CONVERSION Dillon Francis, RN Social History Tobacco Use Types Packs/Day Years Used Date Smoking Tobacco: Never Assessed Comments Unknown Sex and Gender Information Value Date Recorded Sex Assigned at Female 09/27/2018 8:42 AM EST Legal Sex Female 2:16 PM EST Gender Identity Female 09/27/2018 8:42 AM EST Sexual Orientation Not on file documented as of this encounter Progress Notes * Dillon Francis RN - 11/24/2014 12:55 PM EST [id number],[place]ON [place], [place]. Teaching Learning Motivation and Barriers Learner: patient. Learning Preference: Teach Back Method, Discussion and Active Participation Learning Preference Comments: This pt. did not want to hear very much about the details of the procedure. It makes her nervous. That has been placed on the special needs section of the schedule. Assessment of Barriers to Learning: No Barriers. Primary Language Written Bangladeshi Neighborhood Coordinator used: NO. Pre OP Teaching PROCEDURE: Cervical epidural steroid injection . Date of procedure: to be determined. Provider: Dr. Mcneill. Topic of instructions include: ride home required and use of anitbacterial cleanser . Medications to be stopped per MD order pre-procedure: . (none). Topic of instructions include: driving restrictions. Instructions Spine Center: Epidural Steroid Injections. Verbalizes understanding of instructions and agrees with plan. States all questions answered. Able repeat back instructions and states understanding of the plan. Number given to call for ongoing questions or concerns. Appointment/ Follow Up reviewed with patient/ learner. Special Considerations Patient does not have a history of diabetes. Patient does not take anticoagulation medication. Patient does not have allergy to iodine. Patient does not have allergy to latex. Pt. is hypertensive and was instructed to continue all meds. She should eat as regularly as possible. She will plan to take a pain med prior to the procedure. She felt the injection was very painful the last time. Signatures Electronically signed by : DILLON FRANCIS RN; Sep 26 2014 2:45PM (Author) documented in this encounter Miscellaneous Notes * Telephone Encounter - Dillon Francis RN - 11/24/2014 5:39 PM EST [id number],[facility]ON [facility] POSTOP TELEPHONE NOTE NEUROSURGERY 10/13/2014 Name: CHANTELLE JOHNSON V #: [id number] : 1980 Visit ID: [id number] This patient calls today because she thought that the injection was done in a different place than her previous one. Also, she said that she was more uncomfortable after this injection as compared to her last one, which was on 09/11/2014. In discussion with her, I explained that sometimes people can have the same injection, but the doctor opts to angle it a little differently, so, not to worry about the fact that this injection site seemed a little lower than her last one. DICTATION ENDS HERE Dillon Francis RN [phone] AC:nts J: [id number] / [id number] CC: THIS DOCUMENT WAS ELECTRONICALLY AUTHENTICATED BY Dillon Francis RN ON 11/02/2014 14:26:15 * Telephone Encounter - Dillon Francis RN - 11/24/2014 5:39 PM EST [id number] JOHNSON [facility] POST[facility] TELEPHONE NOTE NEUROSURGERY 10/13/2014 Name: CHANTELLE JOHNSON V #: [id number] : 1980 Visit ID: [id number] REASON FOR THIS CALL: The patient was concerned regarding a procedure she had yesterday with Dr. Murali Mcneill, a cervical interlaminar epidural steroid injection on the left side at C7-T1. The patient had questions regarding the location of the injection site. She said it was different than the last injection she had with Dr. Mcneill on September 11. We reviewed the possible reasons for that. The patient seems satisfied with the explanation. I also discussed with her care to the injection site. She said that she has been having increasing pain. I told her to continue using ice over the injection site for about 20 minutes at a time, 3 to 4 times throughout the day. She was very appreciative of the call and she said she would give us a call in 2 weeks post procedure. The patient does have our contact information. Dillon Francis RN [phone] AC:ismael J: [id number] / [id number] CC: THIS DOCUMENT WAS ELECTRONICALLY AUTHENTICATED BY Dillon Francis RN ON 11/02/2014 14:24:29 documented in this encounter Plan of Treatment Not on file documented as of this encounter Visit Diagnoses Not on filedocumented in this encounter Care Teams Chronic Disease Manager Relationship Specialty Start Date End Date Von Elizabeth MD PCP - General 08/07/14 05/23/25 Von Elizabeth MD [address] [place] [id number] PCP - Insurance Assigned PCP 05/24/25 Von Elizabeth MD [address] [place] [address] PCP - General Internal Medicine 05/24/25 documented as of this encounter
--- OUTSIDE RECORDS SUMMARY | 2025-09-20 10:11 | XMS_ITS | Encounter Summary ---
Author Organization [facility] Address [address] [facility] [address] [place] [address] Phone Care Team Providers Care Bench Assembler Operator Name Role Phone Von Elizabeth MD Unavailable [phone] Steffi White MANAGER PRIVACY Primary Care Provider [phone] Pcp, Unknown Primary Care Provider Unavailabl Moo Lopez PA-C Primary Care Provider [phone] Encounter Details Date Type Department Care Team (Late st Contact Info) Description 08/22/2024 Procedure Pass [facility], [facility] [address] [place] [address] Social History Tobacco Use Types Packs/Day Years [...] high school, GED, job training, learning the Czech language, technical skills, or developing parenting skills)? [...] is your housing situation today? I have rocsoe ryan 08/22/2024 How many times have you [...] Description 10/11/2025 3:20 PM EST Office Visit [facility] 40 [place] [address] Moo Baez PA-C 40 [place] [address] [email or web address] 10/25/2025 4:00 PM EST Office Visit [facility] [address] [facility] [address]nd [place] [address] Fanny Hand DO 221 [place] [address] [email or web address] 11/20/2025 10:45 AM EST Office Visit [facility] 243 [facility] 9th [place] [address] Rafia Taylor MD 243 [place] [address] [email or web address] 11/29/2025 9:00 AM EST Nutrition [facility] [address] [facility] [address] [place] [address] Chantelle Connors LDN [address] [place] [address] [email or web address] documented as of this encounter Visit Diagnoses Not on filedocumented in this encounter Additional Health Concerns Assessment Noted Time PHQ-2 Depression Total Score: 2 12/13/19 25 7:26 PM EDT documented as of this encounter Care Teams Bench Assembler Operator Relationship Specialty Start Date End Date Steffi White FNP [address] [place] [address] PCP - General Nurse Practitioner 08/22/24 10/23/24 Pcp, Unknown PCP - General 10/24/24 11/20/24 Moo Baez PA-C [address] [place] [address] PCP - General Physician Metal Tester 11/21/24 Von Elizabeth MD [address] [place] [address] [email or web address] Insurance Assigned Provider 01/02/24 documented as of this encounter Additional Source Comments The information contained in this document represents components of the legal health record. It is not the complete legal health record.[facility]
--- OUTSIDE RECORDS SUMMARY | 2025-09-20 10:11 | XMS_ITS | Clinical Summary ---
Author Organization [facility] Address [address] [address] Phone Care Team Providers Care Thoroughbred Horse Farm Manager Name Role Phone Von Elizabeth MD Unavailable [phone] Moo Baez PA-C Primary Care Provider [phone] Allergies No known active allergies Medications losartan (COZAAR) 50 MG tablet Take 50 mg by mouth 2 (two) times a day. Active chlorthalidone (HYGROTON) 25 MG tablet Take 25 mg by mouth daily. 10/22/19 23 Active melatonin 5 mg Tab Take by mouth nightly at bedtime as needed. Active omeprazole (PRILOSEC) 20 MG capsule Take 20 mg by mouth daily. 03/07/20 25 Active sertraline (ZOLOFT) 100 MG tablet TAKE 1 TABLET BY MOUTH EVERY DAY 90 tablet 3 05/16/20 25 Active labetaloL (TRANDATE) 300 MG tablet Take 300 mg by mouth 2 (two) times a day. Active acetaZOLAMIDE (DIAMOX) 500 mg capsule Take 500 mg by mouth 2 (two) times a day. Active potassium chloride (KLOR-CON) 10 MEQ ER tablet Take 10 mEq by mouth daily. Active semaglutide, weight loss, (WEGOVY) 0.5 mg/0.5 mL subcutaneous injection Inject 0.5 mL (0.5 mg total) under the skin every 7 days. 2 mL 1 09/08/20 25 Active semaglutide, weight loss, (WEGOVY) 0.25 mg/0.5 mL subcutaneous pen injectionIndication s:Class 1 obesity due to excess calories without serious comorbidity with body mass index (BMI) of 32.0 to 32.9 in adult,Essential hypertension,Gastro esophageal reflux disease without esophagitis,IIH (idiopathic intracranial hypertension) Inject 0.5 mL (0.25 mg total) under the skin every 7 days. 2 mL 07/24/20 025 Discontinued Active Problems Problem Noted Date Diagnosed Date [...] Encounters Date Type Department Care Team Description 09/08/2025 Documentation [facility] 40 [place] [address] Moo Baez PA-C 09/07/2025 Telephone [facility] [address] [facility]3 [place] [address] Fanny Hand DO Katherine Salim / Patient Advice 08/18/2025 10:30 AM EST Procedure visit [facility] [address] [facility], 8th Floor, [address] [place] [address] Hemalatha Salas CNP IIH (idiopathic intracranial hypertension) (Primary Dx); Idiopathic intracranial hypertension 08/09/2025 Telephone [facility] [address] [facility] [place] [address] Krystal Garcia Medication Prior Authorization (Wegovy 0.25) 08/04/2025 Orders Only [facility] [address] [address] Tigist Eason MD 08/04/2025 Orders Only [facility] [address] [address] Miguel Eid MD Idiopathic intracranial hypertension (Primary Dx) 08/01/2025 Telephone [facility] Endocrinology 81 [place] [address] Viry Ibrahim Medication Prior Authorization 07/24/2025 9:00 AM EDT Office Visit [facility] [address] [address] Fanny Hand DO Class 1 obesity due to excess calories without serious comorbidity with body mass index (BMI) of 32.0 to 32.9 in adult (Primary Dx); Essential hypertension; Anxiety and depression; Gastroesophageal reflux disease without esophagitis; Elevated LDL cholesterol level; IIH (idiopathic intracranial hypertension) 07/17/2025 3:30 PM EDT Office Visit [facility] [address] [address] Rafia Taylor MD Idiopathic intracranial hypertension (Primary Dx) 07/17/2025 Orders Only [facility] 243 [place] [address] Karli Serna Idiopathic intracranial hypertension 07/17/2025 Telephone [facility] 40 [place] [address] Moo Baez PA-C Referral 07/14/2025 Orders Only [facility] 40 [place] [address] Inés Herbert MD 07/06/2025 Orders Only [facility] [address] [place] [address] Inés Herbert MD 07/05/2025 Orders Only [facility] [address] [place] [address] Inés Herbert MD 07/03/2025 12:00 PM EDT Telemedicine Located Within [facility] Support 2 [facility] [place] [address] Nini Westbrook, JOEY Urinary urgency (Primary Dx) 06/26/2025 Telephone [facility]hthal[facility] [address] [facility] [address] Farzana Centeno OD from Last 3 Months Immunizations Immunization Administration [...] Sign Reading Time Taken Comments Blood Pressure 114/78 08/18/2025 9:35 AM EST Pulse 63 08/18/2025 9:35 AM EST Temperature 36.8 C (98.2 F) 08/18/2025 9:35 AM EST Respiratory Rate 16 09/18/2024 11:17 AM EST Oxygen Saturation 98% 08/18/2025 9:35 AM EST Inhaled Oxygen Concentration - - Weight 80.3 kg (177 lb) 08/18/2025 9:35 AM EST Height 154.9 cm (5' 1 ) 08/18/2025 9:35 AM EST Body Mass Index 33.44 08/18/2025 9:35 AM EST Plan of Treatment Upcoming Encounters Date Type Department Care Team (Late st Contact Info) Description 10/11/2025 3:20 PM EST Office Visit [facility] 40 [place] [address] Moo Baez PA-C 40 [place] [address] 10/25/2025 4:00 PM EST Office Visit [facility] [address] [address] Fanny Hand DO 221 [place] [address] [email or web address] 11/20/2025 10:45 AM EST Office Visit [facility] Op[facility] 243 [facility] 9th [place] [address] Rafia Taylor MD 243 [place] [address] [email or web address] 11/29/2025 9:00 AM EST Nutrition [facility] [address] [facility] [address] [place], [place] [address] Chantelle Connors LDN 221 [place] [address] [email or web address] Health Maintenance Due Date Last Done Comments PNEUMOCOCCAL VACCINES (0-49 years) (1 of 2 - PCV) 1998 COLOGUARD 02/16/2024 FIT TEST 02/16/2024 FOBT 02/16/2024 SIGMOIDOSCOPY 02/16/2024 VIRTUAL COLONOSCOPY 02/16/2024 INFLUENZA VACCINE (#1) 2025 , 08/04/2019, 06/18/2017, Additional history exists COVID-19 VACCINE ( season) 2025 02/17/2021, 01/27/2021 BLOOD PRESSURE 01/22/2026 07/24/2025 DEPRESSION SCREENING 07/24/2026 07/24/2025 CREATININE LEVEL 09/07/2026 09/07/2025, 07/2025, 08/26/2024, Additional history exists POTASSIUM LEVEL 09/07/2026 09/07/2025, 04/28, 08/26/2024, Additional history exists MAMMOGRAM 02/13/2027 02/13/2025, 08/29, 01/14/2022, Additional history exists SCREENING FOR DIABETES 05/08/2028 05/08/2025, 2020 LIPID PANEL 08/26/2029 08/26/2024, 12/27, 01/14/2023, Additional history exists Adult Td,Tdap Booster 10/06/2029 10/06/2019 COLONOSCOPY 07/06/2035 07/06/2025 COLORECTAL CANCER SCREENING 07/06/2035 HIV ONE-TIME SCREENING (18-65 YEARS) Completed 10/12/2019 HEPATITIS C SCREENING Completed 12/09/2024 , 01/03/2022, 01/03/2022 SMOKING STATUS SCREENING (Once After 26 Yrs) Completed 08/18/2025 HEPATITIS A VACCINES Aged Out No long [...] Procedure Name Priority Date/Time Associated Diagnosis Comments COMPREHENSIVE METABOLIC PANEL (CMP) Routine 09/07/2025 Medication monitoring encounter MAGNESIUM Routine 09/07/2025 Medication monitoring encounter CELL COUNT AND DIFFERENTIAL (CSF) Routine 08/18/2025 10:35 AM EST Idiopathic intracranial hypertension CELL COUNT AND DIFFERENTIAL (CSF) Routine 08/18/2025 10:35 AM EST Idiopathic intracranial hypertension CELL COUNT, CSF Routine 08/18/2025 10:35 AM EST Idiopathic intracranial hypertension CELL COUNT, CSF Routine 08/18/2025 10:35 AM EST Idiopathic intracranial hypertension Cell count/differential, CSF Routine 08/18/2025 10:35 AM EST Idiopathic intracranial hypertension Cell count/differential, CSF Routine 08/18/2025 10:35 AM EST Idiopathic intracranial hypertension TOTAL PROTEIN, CSF Routine 08/18/2025 10:35 AM EST Idiopathic intracranial hypertension GLUCOSE, CSF Routine 08/18/2025 10:35 AM EST Idiopathic intracranial hypertension PT-INR Routine 07/17/2025 4:50 [...] REPORT ONLY Routine 07/05/2025 1:22 PM EDT BI MAMMOGRAM SCREENING WITH TOMOSYNTHESIS WITH CAD (BILATERAL) Routine 02/13/2025 4:05 PM EDT Screening mammogram for breast cancer HEPATITIS C ANTIBODY, QUALITATIVE Routine 12/09/2024 8:21 AM EDT Elevated LFTs LIPID PANEL Routine 08/26/2024 10:10 AM EST Pure hypercholesterolemia from Last 3 Months or Most Recently Relevant to Health Maintenance Results * Comprehensive Metabolic Panel (CMP) (09/07/2025) Sodium - External EXTERNAL NON-INTERFACED REF LAB Potassium - External 3.4 EXTERNAL NON-INTERFACED REF LAB Chloride - External EXTERNAL NON-INTERFACED REF LAB CO2 - External EXTER NAL NON-INTERFACED REF LAB BUN - External EXTER NAL NON-INTERFACED REF LAB Creatinine - External 0.89 EXTERNAL NON-INTERFACED REF LAB Glucose - External EXTERNAL NON-INTERFACED REF LAB Albumin - External EXTERNAL NON-INTERFACED REF LAB Protein - External EXTERNAL NON-INTERFACED REF LAB Calcium - External EXTERNAL NON-INTERFACED REF LAB Alkaline Phosphatase - External EXTERNAL NON-INTERFACED REF LAB Bilirubin, total - External EXTERNAL NON-INTERFACED REF LAB AST - External EXTER NAL NON-INTERFACED REF LAB ALT - External 43 EXTER NAL NON-INTERFACED REF LAB Globulin - External EXTERNAL NON-INTERFACED REF LAB eGFR - External EXTE RNAL NON-INTERFACED REF LAB Anion Gap - External EXTERNAL NON-INTERFACED REF LAB Blood (Blood) 09/07/2025 us Moo Baez PA-C LAB BLOOD BKR ORDERABLES Edit ed Result - Final EXTERNAL NON-INTERFACED REF LAB * Magnesium (09/07/2025) [facility] Magnesium - External 2.1 EXTERNAL NON-INTERFACED REF LAB Blood (Blood) 09/07/2025 Moo Baez PA-C LAB BLOOD BKR ORDERABLES Edit ed Result - Final Performing Organization Address City/[facility] Co de Phone Number EXTERNAL NON-INTERFACED REF LAB * (ABNORMAL) Cell Count and Differential, CSF (08/18/2025 10:35 AM EST) Only the most recent of2 resultswithin the time period is included. [facility] % Neutrophils, CSF 9(H) <=0 % 08/18/2025 5:07 PM [facility] % Lymphocytes, CSF 82(H) 5 - 35 % 08/18/2025 5:07 PM [facility] % Monocytes/Macr ophages, CSF 9(L) 15 - 45 % 08/18/2025 5:07 PM [facility] Cerebrospinal Fluid (Lumbar Puncture) Non-Blood Collection / Unknown 08/18/2025 10:35 AM EST 08/18/2025 3:35 PM EST Result [facility] Rafia Madsen MD LAB BODY FLUID S AND STOOL ORDERABLES Final Result Performing Organization Address City/[facility]/ZIP Co de Phone Number [facility] [address] [place] [address] * (ABNORMAL) Cell Count, CSF (08/18/2025 10:35 AM EST) [facility] CSF Tube # Tube #4 08/18/2025 5:18 PM [facility] CSF Color colorless colorless 08/18/2025 5:18 PM [facility] CSF Clarity Clear Clear 08/18/2025 5:18 PM [facility] Xanthochromia not present not present 5:18 PM [facility] CSF Total Nucleated Count (Automated) 2 0 - 5 /uL 08/18/2025 5:18 PM [facility] CSF RBC (Automated) 11(H) 0 - 1 /uL 08/18/2025 5:18 PM [facility] Cerebrospinal Fluid (Lumbar Puncture) Non-Blood Collection / Unknown 08/18/2025 10:35 AM EST 08/18/2025 3:33 PM EST Rafia Madsen MD LAB BODY FLUID S AND STOOL ORDERABLES Final Result Performing Organization Address City/[facility] Co de Phone Number [address] [address] * (ABNORMAL) Cell Count, CSF (08/18/2025 10:35 AM EST) Pathologist [facility] CSF Tube # Tube #1 08/18/2025 5:07 PM [facility] CSF Color colorless colorless 08/18/2025 5:07 PM [facility] CSF Clarity Clear Clear 08/18/2025 5:07 PM [facility] Xanthochromia not present not present 5:07 PM [facility] CSF Total Nucleated Count (Automated) 2 0 - 5 /uL 08/18/2025 5:07 PM [facility] CSF RBC (Automated) 735(H) 0 - 1 /uL 08/18/2025 5:07 PM [facility] Cerebrospinal Fluid (Lumbar Puncture) Non-Blood Collection / Unknown 08/18/2025 10:35 AM EST 08/18/2025 3:35 PM EST us Rafia Madsen MD LAB BODY FLUID S AND STOOL ORDERABLES Final Result Performing Organization Address City/[facility]/ZIP Co de Phone Number [address] [address] * Glucose, CSF (08/18/2025 10:35 AM EST) Glucose, CSF 53 45 - 70 mg/dL 08/18/2025 4:09 PM [facility] Cerebrospinal Fluid (Lumbar Puncture) Non-Blood Collection / Unknown 08/18/2025 10:35 AM EST 08/18/2025 3:31 PM EST us Rafia Madsen MD LAB BODY FLUID S AND STOOL ORDERABLES Final Result [address] [address] * Protein, CSF, Total (08/18/2025 10:35 AM EST) Total Protein, CSF 37 15 - 45 mg/dL 08/18/2025 6:20 PM EST [facility] Cerebrospinal Fluid (Lumbar Puncture) Non-Blood Collection / Unknown 08/18/2025 10:35 AM EST 08/18/2025 3:31 PM EST us Rafia Madsen MD LAB BODY FLUID S AND STOOL ORDERABLES Final Result Performing Organization Address City/[facility]/ZIP Co de Phone Number [address] [address] * PTT (07/17/2025 4:50 PM EDT) APTT 26.9 24.0 - 37.5 sec [facility] Comment:Check MAR for the ta rget range that is ordered for your patient. 07/17/2025 4:50 PM EDT 07/17/2025 6:46 PM EDT Result [facility] us Rafia Madsen MD LAB BLOOD BKR ORDERABLES Final Result [address] [address] * PT-INR (07/17/2025 4:50 PM EDT) PT 11.0 10.0 - 13.0 sec [facility] INR 1.0 0.9 - 1.1 [facility] 07/17/2025 4:50 PM EDT 07/17/2025 6:46 PM EDT us Rafia Madsen MD LAB BLOOD BKR ORDERABLES Final Result Performing Organization Address City/[facility] Co de Phone Number [address] [address] * CBC (07/17/2025 4:50 PM EDT) WBC 7.70 4.00 - 11.00 K/uL [facility] RBC 4.58 4.00 - 5.20 M/uL [facility] HGB 13.6 12.0 - 16.0 g/dL [facility] HCT 38.2 36.0 - 46.0 % [facility] PLT 259 150 - 450 K/uL [facility] MCV 83.4 80.0 - 100.0 fL [facility] MCH 29.7 27.0 - 31.0 pg [facility] MCHC 35.6 32.0 - 36.0 g/dL [facility] RDW 12.3 11.5 - 14.5 % [facility] MPV 9.7 8.4 - 12.0 fL [facility] NRBC 0.00 0.00 /100 WBCs [facility] ABSOLUTE NRBC 0.00 0.00 K/uL [facility] 07/17/2025 4:50 PM EDT 07/17/2025 6:46 PM EDT us Rafia Madsen MD LAB BLOOD BKR ORDERABLES Final Result Performing Organization Address City/[facility] Co de Phone Number [address] [address] * OCT, Optic Nerve - OU - Both Eyes - Cirrus; RNFL, GCC; HD Radial Disc BELKIS (07/17/2025 3:38 PM EDT) Narrative [facility] - 07/18/2025 8:36 AM EDT Images from [...] Ganglion cell or retinal thickness: Normal. Notes Result [facility] Rafia Madsen MD OPHTHALMOLOGY IMAGING Final Result Performing Organization Address [facility] de Phone Number AFIA * Lerma Visual Field - OU - Both Eyes (07/17/2025 3:22 PM EDT) HVF Mean Deviation (OS) - Left Eye -6.53 dB HARMONY HVF Mean Deviation (OD) - Right Eye -11.12 dB HARMONY Narrative HARMONAminata - 07/18/2025 8:36 AM EDT Images from [...] Details Testing performed by: Anthony Pardo Notes Result [facility] Rafia Madsen MD OPHTHALMOLOGY IMAGING Final Result Performing Organization Address [facility] Phone Number AFIA * Outside Imaging Report Only (07/14/2025 5:20 PM EDT) Result [facility] Historical Provider MD JONES XR CHEST Edited Re sult - Final * HM COLONOSCOPY FOR RESULT ENTRY ONLY (07/06/2025 8:09 AM EDT) Historical Provider HEALTH MAINTENANCE Final Result * Outside MR Head/Neck Report Only (07/05/2025 1:22 PM EDT) Result [facility] Historical Provider MD JONES MR HEAD/NECK Final Re sult * BI MAMMOGRAM SCREENING WITH TOMOSYNTHESIS WITH [...] the results and recommendations. us Steffi White FOOD AND BEVERAGE DIRECTOR IMG MG EXAMS Final Resul t * Hepatitis C antibody, qualitative (12/09/2024 8:21 AM EDT) HCV NON-REACTIV E NON-REACTI VE [facility] Blood 12/09/2024 8:21 AM EDT 12/09/2024 8:26 AM EDT us Moo Baez PA-C LAB BLOOD BKR ORDERABLES Bri l Result [address] [address] * (ABNORMAL) Lipid panel (08/26/2024 10:10 AM EST) HDL 46 mg/dL [facility] Comment: Interpretation <40 mg/dL: Low HDL cholesterol (major risk factor for CHD) Greater than or equal to 60 mg/dL: High HDL cholesterol ( negative risk factor for CHD) HDL - cholesterol is affected by a number of factors, e.g. smoking, excerise, hormones, sex and age. CHOLESTEROL 231 0 - 240 mg/dL [facility] TRIGLYCERIDES 159 30 - 160 mg/dL [facility] LDL 153(H) 50 - 129 mg/dL [facility] Comment: LDL levels in terms of risk for coronary heart disease: <100 mg/dL: Optimal 100-129 mg/dL: Near or above optimal 130-159 mg/dL: Borderline high 160-189 mg/dL: High >190 mg/dL: Very High CARDIAC RISK RATIO 5.0(H) 3.3 - 4.4 C [facility] Blood 08/26/2024 10:1 0 AM EST 08/26/2024 10:12 AM EST Steffi White FOOD AND BEVERAGE DIRECTOR LAB BLOOD BKR ORDERABLES Fi nal Result [address] [address] from Last 3 Months or Most Recently Relevant to Health Maintenance Insurance [facility] Care Teams Thoroughbred Horse Farm Manager Relationship Specialty Start Date End Date Moo Baez PA-C [address] [place] [address] [email or web address] PCP - General Physician Workday Director 11/21/24 Von Elizabeth MD [address] [place] [address] [email or web address] Insurance Assigned Provider 01/02/24 Additional Source Comments The information contained in this document represents components of the legal health record. It is not the complete legal health record.[facility]
--- OUTSIDE RECORDS SUMMARY | 2025-09-20 10:11 | XMS_ITS | Encounter Summary ---
Author Organization [facility] Address [address] [place] [address] Care Team Providers Care Lead Electrical Engineer Name Role Phone Von Elizabeth MD Primary Care Provider [phone] Von Elizabeth MD Unavailable [phone] Von Elizabeth MD Primary Care Provider [phone] Encounter Details Date Type Department Care Team (Late st Contact Info) Description 11/10/2014 Orders Only Department of Neurosurgery [facility] Neurosurgery [address] [address] Murali Mcneill MD [address] [place] [address] [place] [phone] Social History Tobacco Use Types Packs/Day Years [...] on filedocumented in this encounter Care Teams Lead Electrical Engineer Relationship Specialty Start Date End Date Von Elizabeth MD PCP - General 08/07/14 05/23/25 Von Elizabeth MD [address] [place] [address] PCP - Insurance Assigned PCP 05/24/25 Von Elizabeth MD [address] [place] [address] [place] [address] PCP - General Internal Medicine 05/24/25 documented as of this encounter
--- OUTSIDE RECORDS SUMMARY | 2025-09-20 10:11 | XMS_ITS | Encounter Summary ---
Author Organization [facility] Address [address] [place] [address] Care Team Providers Care Front Office Medical Assistant Name Role Phone Von Elizabeth MD Primary Care Provider [phone] Von Elizabeth MD Unavailable [phone] Von Elizabeth MD Primary Care Provider Encounter Details Date Type Department Care Team (Late st Contact Info) Description 11/10/2014 Orders Only Department of Neurosurgery [facility] Neurosurgery [address] [address] Murali Mcneill MD [address] [place] [address] [place] [phone] Social History Tobacco Use Types Packs/Day [...] on filedocumented in this encounter Care Teams Front Office Medical Assistant Relationship Specialty Start Date End Date Von Elizabeth MD PCP - General 08/07/14 05/23/25 Von Elizabeth MD [address] [place] [address] PCP - Insurance Assigned PCP 05/24/25 Von Elizabeth MD [address] [place] [address] [place] [address] PCP - General Internal Medicine 05/24/25 documented as of this encounter
--- OUTSIDE RECORDS SUMMARY | 2025-09-20 10:11 | XMS_ITS | Encounter Summary ---
Author Organization Antonietta Zimmerman [facility] Address [address] [place] [address] Care Team Providers Care Field Operations Technician Name Role Phone Von Elizabeth MD Primary Care Provider [phone] Von Elizabeth MD Unavailable [phone] Von Elizabeth MD Primary Care Provider [phone] Encounter Details Date Type Department Care Team (Late st Contact Info) Description 05/16/2010 Clinical Conversion Encounter Department of Orthopedic Surgery ([address] [place] [address] [address] [place] [address], 2nd [place] [address] Ruben Mcintyre MD PhD [address] [place] [address] Social History Tobacco Use Types Packs/Day Years Used Date Smoking Tobacco: Never Assessed Comments Unknown Sex and Gender Information Value Date Recorded Sex Assigned at Female 09/27/2018 8:42 AM EST Legal Sex Female 2:16 PM EST Gender Identity Female 09/27/2018 8:42 AM EST Sexual Orientation Not on file documented as of this encounter Progress Notes * Ruben Mcintyre MD PhD - 10/18/2014 3:03 PM EST [id number] JOHNSON [facility] CHANTELLE JOHNSON V 05/30/2010 # [id number] : 1980 Second Visit ID: Visit ID: [id number] Chantelle returns to see me. She is status post MRI of the left elbow which demonstrates standard postsurgical changes, excellent healing of the lateral epicondyle, excellent healing of the posterolateral ligament complex. She clearly has hypersensitive evidence consistent with ulnar nerve neuritis, although she has normal caliber nerve on the MR. PHYSICAL EXAMINATION: I, on physical exam, today note that she has classic ulnar neuropathy, positive Tinel's at the elbow, +100 degrees flexion test at the elbow and more classic and provocative symptoms consistent with ulnar nerve neuritis. In review of this, I would strongly recommend obtaining electrodiagnostics now. Her symptoms are classic and provocative for ulnar neuritis. We will get this set up and I will see her as soon as they are concluded. Grisel Mcintyre MD, PhD [phone] [id number] J: [id number] CC: Grisel Mcintyre MD, PhD, <Referring> Gordon Ohara MD, <Primary Care Physician> THIS DOCUMENT WAS ELECTRONICALLY AUTHENTICATED BY Grisel Mcintyre MD, PhD ON 06/07/2010 14:19:07 PROGRESS NOTE [facility] * [address] [place] [address] * [phone] Page 1 of 2 PROGRESS NOTE * Ruben Mcintyre MD PhD - 10/18/2014 5:34 AM EST [id number],[facility] ORTHOPEDIC SURGERY CHANTELLE JOHNSON V 05/16/2010 # [id number] : 1980 Second Visit ID: Visit ID: [id number] Chantelle returns to see me. DATE OF SURGERY: 12/11/09. PROCEDURE: Status post posterolateral ligament repair of the left elbow. Chantelle is doing well. Her incision is clean, dry, and intact. She is neurovascularly intact. She has no erythema, no edema, no purulence or drainage. Full range of motion. She has minimal to no pain. She has been advancing her activities and progressing nicely. I am actually very pleased with her result. I will discharge her from clinic and see her on a p.r.n. basis as needed. Grisel Mcintyre MD, PhD [phone] [id number] J: [id number] CC: Grisel Mcintyre MD, PhD, <Referring> Gordon Ohara MD, <Second referring Dr Name> THIS DOCUMENT WAS ELECTRONICALLY AUTHENTICATED BY Grisel Mcintyre MD, PhD ON 05/29/2010 13:03:37 PROGRESS NOTE [facility] * [address] [place] [address] * [phone] Page 1 of 2 PROGRESS NOTE documented in this encounter Plan of Treatment Not on file documented as of this encounter Visit Diagnoses Not on filedocumented in this encounter Care Teams Field Operations Technician Relationship Specialty Start Date End Date Von Elizabeth MD PCP - General 08/07/14 05/23/25 Von Elizabeth MD [address] [place] [address] PCP - Insurance Assigned PCP 05/24/25 Von Elizabeth MD [address] [place] [address] PCP - General Internal Medicine 05/24/25 documented as of this encounter
--- OUTSIDE RECORDS SUMMARY | 2025-09-20 10:11 | XMS_ITS | Clinical Summary ---
Author Organization [facility] Address [address] [place] [address] Care Team Providers Care Operating Room Aide Name Role Phone Unavailable Primary Care Provider [...] Due Date Last Done Comments Hepatitis B Vaccines (1 of 3 - 19+ 3-dose series) 1998 Cervical Cancer Screening: Pap Smear 02/16/2000 Depression Screening 09/28/2024 COVID-19 Vaccine (2024- season) 2025 02/17/2021, 01/27/2021 Influenza Vaccine (#1) 2025 , 08/04/2019, 06/18/2017, Additional history exists Breast Cancer Screening 02/13/2027 02/13/2025 DTaP,Tdap,and Td Vaccines (2 - Td or Tdap) 10/06/2029 10/06/2019 RSV Immunization Adult Patients (1 - 1-dose [...]
--- OUTSIDE RECORDS SUMMARY | 2025-09-20 10:11 | XMS_ITS | Encounter Summary ---
Author Organization [facility] Address [address] [facility] [address] [place] [address] Phone Care Team Providers Care Jacker Feeder Name Role Phone Von Elizabeth MD Unavailable [phone] Steffi White Primary Care Provider [phone] Pcp, Unknown Primary Care Provider UnavailMoo Fleming PA-C Primary Care Provider [phone] Encounter Details Date Type Department Care Team (Late st Contact Info) Description 08/26/2024 Transcribe Orders [facility] Specimen Processing [address] [place] [address] Steffi White FNP 15 [facility] [address] [place] [address] [email or web address] Social History Tobacco Use Types Packs/Day Years [...] high school, GED, job training, learning the Bahamian language, technical skills, or developing parenting skills)? [...] Description 10/11/2025 3:20 PM EST Office Visit [facility] [address] [place] [address] Moo Baez PA-C [address] [place] [address] 10/25/2025 4:00 PM EST Office Visit [facility] [address] [facility] 2nd [place] [address] Fanny Hand DO [address] [place] [address] [email or web address] 11/20/2025 10:45 AM EST Office Visit [facility] [address] [facility] 9th [place] [address] Rafia Taylor MD [address] [place] [address] [email or web address] 11/29/2025 9:00 AM EST Nutrition [facility] [address] [facility] [address] [place] [address] Chantelle Connors LDN [address] [place] [address] [email or web address] documented as of this encounter Visit Diagnoses Not on filedocumented in this encounter Additional Health Concerns Assessment Noted Time PHQ-2 Depression Total Score: 0 08/22/20 24 2:44 PM EST documented as of this encounter Care Teams Jacker Feeder Relationship Specialty Start Date End Date Steffi White FNP [address] [address] [email or web address] PCP - General Nurse Practitioner 08/22/24 10/23/24 Pcp, Unknown PCP - General 10/24/24 11/20/24 Moo Baez PA-C [address] [place] [address] [email or web address] PCP - General Physician Validation Specialist 11/21/24 Von Elizabeth MD [address] [place] [address] [email or web address] Insurance Assigned Provider 01/02/24 documented as of this encounter Additional Source Comments The information contained in this document represents components of the legal health record. It is not the complete legal health record.[facility]
--- OUTSIDE RECORDS SUMMARY | 2025-09-20 10:11 | XMS_ITS | Encounter Summary ---
Author Organization Antonietta Zimmerman [facility] Address [address] [place] [address] Care Team Providers Care Automation And Control Engineer Name Role Phone Von Elizabeth MD Primary Care Provider [phone] Von Elizabeth MD Unavailable [phone] Von Elizabeth MD Primary Care Provider [phone] Encounter Details Date Type Department Care Team (Late st Contact Info) Description 08/10/2012 Clinical Conversion Encounter GENERAL CONVERSION Leon Sanchez, RN [address] [place] [address] Social History Tobacco Use Types Packs/Day Years Used Date Smoking Tobacco: Never Assessed Comments Unknown Sex and Gender Information Value Date Recorded Sex Assigned at Female 09/27/2018 8:42 AM EST Legal Sex Female 2:16 PM EST Gender Identity Female 09/27/2018 8:42 AM EST Sexual Orientation Not on file documented as of this encounter Miscellaneous Notes * Telephone Encounter - Leon Sanchez RN - 11/12/2014 3:38 PM EST [id number] TELEPHONE MEMORANDUM NEUROSURGERY CHANTELLE JOHNSON V 08/10/2012 # [id number] : 1980 Visit ID: [id number] Date of phone call: August 11, 2012 Date of procedure: August 06, 2012 Procedure performed: Lumbar Medial Branch Block (Left L5-S1) Procedure performed by: Procedure facility: [facility] Procedure results: Percentage of relief obtained: >50% Pain quality similar to pre -procedure or different: During the diary period Chantelle stated that her left side of her back felt great. Pain scale number: Preprocedure pain was a 5/10. Postprocedure pain was a 0/10. From 11:30-1:30 pain was a 1/10. Pain from 2:00-3:30 was a 2/10. During this time Chantelle kept busy testing out how she felt by bending and stretching. She walked through the mall which always bothers her back and during this time felt better. New onset numbness or tingling: None Injection site healing: Healed Difficulty with bowel or bladder: None Chantelle would like to go forward with the Radiofrequency Denervation. I have written out the referral and we have reviewed her medications. I have instructed he to eat and have a ride home. Any further questions or concerns I have encouraged her to call. Leon Sanchez RN [phone] LA: J: [id number] CC: Lizzette Grijalva MD THIS DOCUMENT WAS ELECTRONICALLY AUTHENTICATED BY Leon Sanchez RN ON 08/10/2012 15:46:40 documented in this encounter Plan of Treatment Not on file documented as of this encounter Visit Diagnoses Not on filedocumented in this encounter Care Teams Automation And Control Engineer Relationship Specialty Start Date End Date Von Elizabeth MD PCP - General 08/07/14 05/23/25 Von Elizabeth MD [address] [place], [place] [phone] PCP - Insurance Assigned PCP 05/24/25 Von Elizabeth MD [address] [place] [address] PCP - General Internal Medicine 05/24/25 documented as of this encounter
--- OUTSIDE RECORDS SUMMARY | 2025-09-20 10:11 | XMS_ITS | Encounter Summary ---
Author Organization [facility] Address [address] [facility] [address] [place] [address] Phone Care Team Providers Care Plasterer Maintenance Name Role Phone Von Elizabeth MD Unavailable [phone] Jenny Salazar NP Primary Care Provider [phone] Steffi White COMPUTER SYSTEMS ENGINEER Primary Care Provider [phone] Pcp, Unknown Primary Care Provider Moo Leblanc PA-C Primary Care Provider [phone] Encounter Details Date Type Department Care Team (Late st Contact Info) Description 08/07/2023 Procedure Pass [facility] - [address] [place] [address] Social History Tobacco Use Types Packs/Day Years [...] high school, GED, job training, learning the Filipino language, technical skills, or developing parenting skills)? [...] Description 10/11/2025 3:20 PM EST Office Visit [facility] [address] [place] [address] Moo Baez PA-C [address] [place] [address] 10/25/2025 4:00 PM EST Office Visit [facility] [address] [facility] 2nd [place] [address] Fanny Hand DO [address] [place] [address] [email or web address] 11/20/2025 10:45 AM EST Office Visit [facility] [address] [facility] 9th [place] [address] Rafia Taylor MD [address] [place] [address] [email or web address] 11/29/2025 9:00 AM EST Nutrition [facility] [address] [place] [address] Chantelle Connors LDN [address] [place] [address] [email or web address] documented as of this encounter Visit Diagnoses Not on filedocumented in this encounter Additional Health Concerns Assessment Noted Time PHQ-2 Depression Total Score: 1 04/15/20 23 2:02 PM EDT documented as of this encounter Care Teams Plasterer Maintenance Relationship Specialty Start Date End Date Jenny Salazar NP [address] [place] [address] PCP - General Family Medicine 10/11/20 12/03/23 Steffi White FNP [address] [place] [address] PCP - General Nurse Practitioner 08/22/24 10/23/24 Pcp, Unknown PCP - General 10/24/24 11/20/24 Moo Baez PA-C [address] [place] [email or web address] PCP - General Physician Humanities Teacher 11/21/24 Von Elizabeth MD [address] [place] [address] Insurance Assigned Provider 01/02/24 documented as of this encounter Additional Source Comments The information contained in this document represents components of the legal health record. It is not the complete legal health record.[facility]
--- OUTSIDE RECORDS SUMMARY | 2025-09-20 10:11 | XMS_ITS | Encounter Summary ---
Author Organization [facility] Address [address] [facility] [address] [place] [address] Phone Care Team Providers Care Boat Pilot Name Role Phone Von Elizabeth MD Unavailable [phone] Moo Baez PA-C Primary Care Provider [phone] Encounter Details Date Type Department Care Team (Late st Contact Info) Description 04/25/2025 Procedure Pass [facility] Scan - [address] [address] Social History Tobacco Use Types Packs/Day Years [...] high school, GED, job training, learning the Gabonese language, technical skills, or developing parenting skills)? [...] Description 10/11/2025 3:20 PM EST Office Visit [facility] [address] [place] [address] Moo Baez PA-C [address] [place] [address] 10/25/2025 4:00 PM EST Office Visit [facility] [address] [place] [address], [place] [address] Fanny Hand DO [address] [place] [address] [email or web address] 11/20/2025 10:45 AM EST Office Visit [facility] [address] [facility] 9th [place] [address] Rafia Taylor MD [address] [place] [address] [email or web address] 11/29/2025 9:00 AM EST Nutrition [facility] [address] [facility] [address] [place] [address] Chantelle Connors LDN [address] [place] [address] [email or web address] documented as of this encounter Visit Diagnoses Not on filedocumented in this encounter Additional Health Concerns Assessment Noted Time PHQ-2 Depression Total Score: 2 12/13/19 25 7:26 PM EDT documented as of this encounter Care Teams Boat Pilot Relationship Specialty Start Date End Date Moo Baez PA-C [address] [place] [address] [email or web address] PCP - General Physician Toe Puncher 11/21/24 Von Elizabeth MD [address] [place] [address] Insurance Assigned Provider 01/02/24 documented as of this encounter Additional Source Comments The information contained in this document represents components of the legal health record. It is not the complete legal health record.[facility]
--- OUTSIDE RECORDS SUMMARY | 2025-09-20 10:11 | XMS_ITS | Clinical Summary ---
Author Organization Antonietta Zimmerman [facility] Address [address] [place] [address] Care Team Providers Care Draw Bench Operator Name Role Phone Von Elizabeth MD Unavailable [phone] Von Elizabeth MD Primary Care Provider [phone] Allergies Active Allergy Reactions Criticality Noted Date Comments No Known Drug Allergies Other (See Comments) Medications labetalol (TRANDATE) 200 MG tablet TAKE 1 TABLET TWICE DAILY. 07/14/2012 Active sertraline (ZOLOFT) 100 MG tablet TAKE 1 TABLET DAILY. 07/14/2012 Active losartan potassium (LOSARTAN ORAL) Take by mouth daily. Active omeprazole (PriLOSEC) [address] capsule Take 1 capsule (20 mg total) by mouth in the morning. Active chlorthalidone (HYGROTEN) 25 MG tablet Take 1 tablet (25 mg total) by mouth in the morning. Active acetaZOLAMIDE ER (DIAMOX) 500 mg ER capsule Take 1 capsule (500 mg total) by mouth in the morning and 1 capsule (500 mg total) before bedtime. 60 capsule 3 06/28/2025 Active Active Problems Problem Noted Date Diagnosed Date Cervical radiculopathy 09/26/2014 Overview (11/27/2014): Cervical Radiculopathy Prolapsed cervical intervertebral disc 4 Overview (11/27/2014): Herniated Cervical Disc Spondylolisthesis at L5-S1 level 07/22/2012 Overview (11/27/2014): Lumbar Spondylolisthesis (L5 - S1) Low back pain 07/14/2012 Overview (11/27/2014): Lumbago Cubital tunnel syndrome 06/12/2010 Overview (11/27/2014): 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 Lateral epicondylitis 05/30/2010 Overview (11/27/2014): Lateral Epicondylitis Text: Sprained Radial Collateral Ligament Of The Left Elbow 05/30/2010 Overview (12/23/2014): Text: Sprained Radial Collateral Ligament Of The Left Elbow Encounters Date Type Department Care Team Description 07/07/2025 Telephone [facility] at [address] Neurology at [address] [address] Saroj Purcell MD Results 07/05/2025 Orders Only [facility] at [address] Neurology at [address] [address] Saroj Purcell MD IIH (idiopathic intracranial hypertension) (Primary Dx) 07/05/2025 Orders Only [facility] at [address] Neurology at [address] [address] Saroj Purcell MD IIKarli (idiopathic intracranial hypertension) (Primary Dx) 07/05/2025 Orders Only [facility] at [address] Neurology at [address] [address] Saroj Purcell MD IIH (idiopathic intracranial hypertension) (Primary Dx) 07/05/2025 Telephone [facility] at [address] [address] Saroj Purcell MD results and next step? 06/28/2025 9:30 AM EDT Office Visit [facility] at [facility], [address] [place] [address] Road [facility] at [address] [address] Saroj Purcell MD IIH (idiopathic intracranial hypertension) (Primary Dx) from Last 3 Months Social History Tobacco Use Types Packs/Day Years Used Date Smoking Tobacco: Never Smokeless Tobacco: Never Comments Unknown Sex and Gender Information Value Date Recorded Sex Assigned at Female 09/27/2018 8:42 AM EST Legal Sex Female 2:16 PM EST Gender Identity Female 09/27/2018 8:42 AM EST Sexual Orientation Not on file Last Filed Vital Signs Vital Sign Reading Time Taken Comments Blood Pressure 129/87 06/28/2025 9:44 AM EDT Pulse 80 06/28/2025 9:44 AM EDT Temperature - - Respiratory Rate 16 09/05/2014 1:09 PM EST Oxygen Saturation - - Inhaled Oxygen Concentration - - Weight 68 kg (150 lb) 07/22/2012 2:02 PM EDT Height 157.5 cm (5' 2 ) 07/22/2012 2:02 PM EDT Body Mass Index 27.44 07/22/2012 2:02 PM EDT Plan of Treatment Health Maintenance Due Date Last Done Comments Depression Screening 1991 Hepatitis C Screening 1997 Pap Smear 02/16/2000 Cervical Cancer Screening 2009 HPV/Cotest 2009 CT Colonography 02/16/2024 Colonoscopy 02/16/2024 Colorectal Cancer Screening 02/16/2024 FIT 02/16/2024 FOBT 02/16/2024 Multitarget Stool DNA (Cologuard) 02/16/2024 Sigmoidoscopy 02/16/2024 COVID-19 Vaccine ( season) 2025 02/17/2021, 01/27/2021 Influenza Vaccine (#1) 2025 , 08/04/2019, 06/18/2017, Additional history exists Blood Pressure 06/28/2026 06/28/2025 Breast Cancer Screening 02/13/2027 02/14/20, 02/13/2025, 09/17/2023, Additional history exists Lipid Panel 08/26/2029 08/26/2024, 07/30, 01/14/2023, Additional history exists DTaP,Tdap,and Td Vaccines (2 - Td or Tdap) 10/06/2029 10/06/2019 Meningococcal B Vaccines Aged Out No longer eligible based on patient's age to complete this topic Meningococcal Vaccines Aged Out No lo nger eligible based on patient's age to complete this topic Pneumococcal Vaccine Aged Out No long er eligible based on patient's age to complete this topic Procedures Procedure Name Priority Date/Time Associated Diagnosis Comments MRI HEAD OUTSIDE STUDY 07/03/2025 10:16 AM EDT from Last 3 Months Results * MRI Head Outside Study (07/03/2025 10:16 AM EDT) Anatomical Region Laterality Modality Magnetic Resonan ce 07/03/2025 1:22 PM EDT Narrative 07/03/2025 1:22 PM EDT This is a non-reportable study used for image storage. It has been automatically finalized and does not contain a result. Procedure Note System, Provider Not In - 07/03/2025 This is a non-reportable study used for image storage. It has beenautomatically finalized and does not contain a result. us Provider Not In System IMG MRI ORDERABLES Final Result from Last 3 Months Insurance [facility] Care Teams Draw Bench Operator Relationship Specialty Start Date End Date Von Elizabeth MD [address] [place] [address] PCP - Insurance Assigned PCP 05/24/25 Von Elizabeth MD [address] [place] [address] PCP - General Internal Medicine 05/24/25
--- OUTSIDE RECORDS SUMMARY | 2025-09-20 10:12 | XMS_ITS | Encounter Summary ---
Author Organization [facility] Address [address] [place] [address] Care Team Providers Care Community Relations Officer Name Role Phone Von Elizabeth MD Primary Care Provider [phone] Von Elizabeth MD Unavailable [phone] Von Elizabeth MD Primary Care Provider [phone] Encounter Details Date Type Department Care Team (Late st Contact Info) Description 11/09/2009 Clinical Conversion Encounter Department of Orthopedic Surgery ([address] [place] [address] [address] [place] [address], 2nd [place] [address] Ruben Mcintyre MD PhD [address] [place] [address] Social History Tobacco Use Types Packs/Day Years Used Date Smoking Tobacco: Never Assessed Comments Unknown Sex and Gender Information Value Date Recorded Sex Assigned at Female 09/27/2018 8:42 AM EST Legal Sex Female 2:16 PM EST Gender Identity Female 09/27/2018 8:42 AM EST Sexual Orientation Not on file documented as of this encounter Progress Notes * Ruben Mcintyre MD PhD - 10/17/2014 10:01 AM EST [id number],SHANNON [place], [place]. ORTHOPEDIC SURGERY ELIZABETHCHANTELLE Madelaine 11/09/2009 # [id number] : 1980 Second Visit ID: [id number] Visit ID: [id number] SUBJECTIVE: Chantelle returns to see me. She is status post new MRI of the elbow. MRI reveals a full-thickness tear with rupture of the posterolateral ligament complex at the elbow. This is exactly the diagnosis that we presumed and had two weeks prior when I saw her and explains her symptomatology completely. On that date, 10/31/09, we diagnosed her with left elbow instability and posterolateral ligament instability. This in fact is the case, and is the correct diagnosis in my opinion. Therefore, she is going to require reconstruction of the elbow. The posterolateral ligament complex repair +/- allograft. Diagnosis code: 841.0. Procedure code: 36117. Again this is a work-related injury. The diagnosis code actually is 841.0 posterolateral ligament tear chronic. Of note again this is work-related injury. 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 Grisel Mcintyre MD, PhD [phone] [id number] J: [id number] CC: Gordon Ohara MD, <Referring> THIS DOCUMENT WAS ELECTRONICALLY AUTHENTICATED BY Grisel Mcintyre MD, PhD ON 11/13/2009 16:13:52 PROGRESS NOTE [facility] * [address] [place] [address] * [phone] Page 1 of 1 documented in this encounter Plan of Treatment Not on file documented as of this encounter Visit Diagnoses Not on filedocumented in this encounter Care Teams Community Relations Officer Relationship Specialty Start Date End Date Von Elizabeth MD PCP - General 08/07/14 05/23/25 Von Elizaebth MD [address] [place] [address] PCP - Insurance Assigned PCP 05/24/25 Von Elizabeth MD [address] [place] [address], [place] [address] PCP - General Internal Medicine 05/24/25 documented as of this encounter
--- OUTSIDE RECORDS SUMMARY | 2025-09-20 10:12 | XMS_ITS | Patient Health Record ---
Author Organization [facility] Address [address] [place] [address] Care Team Providers Care Tube Laser Operator Name Role Phone Ricketts Devyn Unavailable [phone] Reason For Referral No Information Plan Of Treatment No Information
--- OUTSIDE RECORDS SUMMARY | 2025-09-20 10:12 | XMS_ITS | Encounter Summary ---
Author Organization [facility] Address [address] [place] [address] Care Team Providers Care Auto Mechanic Name Role Phone Von Elizabeth MD Primary Care Provider [phone] Von Elizabeth MD Unavailable [phone] Von Elizabeth MD Primary Care Provider [phone] Encounter Details Date Type Department Care Team (Late st Contact Info) Description 10/31/2009 Clinical Conversion Encounter Department of Orthopedic Surgery ([address] [place] [address] [address] [place] [address], 2nd [place] [address] Kenya Eason NP [address] [place] [address] Social History Tobacco Use Types Packs/Day Years Used Date Smoking Tobacco: Never Assessed Comments Unknown Sex and Gender Information Value Date Recorded Sex Assigned at Female 09/27/2018 8:42 AM EST Legal Sex Female 2:16 PM EST Gender Identity Female 09/27/2018 8:42 AM EST Sexual Orientation Not on file documented as of this encounter Progress Notes * Kenya Eason NP - 10/17/2014 10:01 AM EST [id number],SHANNON [place], [place]. ORTHOPEDIC SURGERY ELIZABETH CHANTELLE 10/31/2009 # [id number] : 1980 Second Visit ID: [id number] Visit ID: [id number] PROBLEM: Left elbow instability. HISTORY OF PRESENT ILLNESS: The patient presents today, seen in consultation at the request of Gordon Ohara for left elbow pain. 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 She was tripped and fell landing on her left elbow with the weight of both her and another counselor, and the patient. She had immediate pain and swelling. She has had several x-rays and an MRI, which were all negative. She was diagnosed with acute lateral epicondylitis and has had no significant improvement. Initially, her fingers were turning purple and she had numbness in the digits. This is improved, but continues to have pain, popping, and grinding with use. It occasionally wakens her from sleep. She has returned to work with light duty and permanent restrictions. Her concern is that she has had no treatment and her symptoms continue. PAST MEDICAL HISTORY: Significant for hypertension. MEDICATIONS: She takes labetalol and Procardia. ALLERGIES: None. SOCIAL HISTORY: She is . She has two children. She does not smoke. She drinks one drink per week. FAMILY HISTORY: Significant for hypertension. REVIEW OF SYSTEMS: Benign. PHYSICAL EXAMINATION: The patient is 5 feet, well-nourished female in no acute distress. Pleasant, cooperative. Neurovascularly intact to sensation and motor. Left elbow motion is full. She has crepitus and popping with hyperextension. She has no tenderness in the lateral epicondyle, but does have pain and instability noted in the posterior lateral ligament complex. IMPRESSION: Left elbow instability. PLAN: Dr. Mcintyre would like to order plain films and an MRI arthrogram of the left elbow to evaluate the posterior lateral ligament complex. We have discussed surgical intervention, if needed. She will continue her light duty until further evaluated. Kenya Eason NP [phone] [id number] J: [id number] CC: Gordon Ohara MD, <Referring> THIS DOCUMENT WAS DICTATED AND AUTHENTICATED BY Kenya Eason NP, ON 11/05/2009 08:11:38, AND FORWARDED TO THE ATTENDING PHYSICIAN FOR FINAL AUTHENTICATION. THIS DOCUMENT WAS ELECTRONICALLY AUTHENTICATED BY Grisel Mcintyre MD, PhD ON 11/13/2009 12:53:54 PROGRESS NOTE [facility] * [address] [place] [address] * [phone] Page 2 of 2 documented in this encounter Plan of Treatment Not on file documented as of this encounter Visit Diagnoses Not on filedocumented in this encounter Care Teams Auto Mechanic Relationship Specialty Start Date End Date Von Elizabeth MD PCP - General 08/07/14 05/23/25 Von Elizabeth MD [address] [place] [address] PCP - Insurance Assigned PCP 05/24/25 Von Elizabeth MD [address] [place] [address] PCP - General Internal Medicine 05/24/25 documented as of this encounter
--- OUTSIDE RECORDS SUMMARY | 2025-09-20 10:12 | XMS_ITS | Encounter Summary ---
Author Organization [facility] [place] [facility] Address [address] [place] [address] Care Team Providers Care Disability Coordinator Name Role Phone Von Elizabeth MD Primary Care Provider [phone] Von Elizabeth MD Unavailable [phone] Von Elizabeth MD Primary Care Provider [phone] Encounter Details Date Type Department Care Team (Late st Contact Info) Description 08/04/2012 Clinical Conversion Encounter GENERAL CONVERSION Leon Sanchez, RN [address] [place] [address] Social History Tobacco Use Types Packs/Day Years [...] Sanchez RN - 11/12/2014 3:38 PM EST [id number] JOHNSON [facility] TELEPHONE MEMORANDUM NEUROSURGERY CHANTELLE JOHNSON V 08/04/2012 # [id number] : 1980 Visit ID: [id number] Date of phone call: August 04, 2012 Date of procedure: July 30, 2012 Procedure performed: #1 Lumbar Medial Branch Block (Left L3-S1) Procedure performed by: Procedure facility: [facility] Procedure results: Percentage of relief obtained: >50% Pain quality similar to pre -procedure or different: Excellent pain relief of her symptoms up until 2:30. Ms. Johnson then started to get pain at tip of sacrum and has had it since. Pain scale number: Preprocedure pain was a 5/10. Postprocedure pain was a 1/10. From 12:00-1:30 pain was a 0-1/10. From 2:00-4:00 pain was a 3/10. New onset numbness or tingling: None Injection site healing: Healed Difficulty with bowel or bladder: None Leon Sanchez RN [phone] [place]: J: [id number] CC: Lizzette Grijalva MD THIS DOCUMENT WAS ELECTRONICALLY AUTHENTICATED BY Leon Sanchez RN ON 08/04/2012 10:14:47 documented in this encounter Plan of Treatment Not on file documented as of this encounter Visit Diagnoses Not on filedocumented in this encounter Care Teams Disability Coordinator Relationship Specialty Start Date End Date Von Elizabeth MD PCP - General 08/07/14 05/23/25 Von Elizabeth MD [address] [place] [address] PCP - Insurance Assigned PCP 05/24/25 Von Elizabeth MD [address] [place] [address] PCP - General Internal Medicine 05/24/25 documented as of this encounter
--- OUTSIDE RECORDS SUMMARY | 2025-09-20 10:12 | XMS_ITS | Encounter Summary ---
Author Organization [facility] Address [address] [address] Phone Care Team Providers Care Gas Furnace Installer Name Role Phone Von Elizabeth MD Unavailable [phone] Jenny Salazar NP Primary Care Provider [phone] Steffi White CALL CENTER ANALYST Primary Care Provider [phone] Pcp, Unknown Primary Care Provider Moo Leblanc PA-C Primary Care Provider [phone] Encounter Details Date Type Department Care Team (Late st Contact Info) Description 12/04/2020 Ancillary Orders [facility],Outside Imaging [address] [place] [address] System, Provider Not In, [place] [address] Social History Tobacco Use Types Packs/Day Years [...] Description 10/11/2025 3:20 PM EST Office Visit [facility] [address] [place], [place] [id number] Moo Baez PA-C [address] [place], [place] [id number] [email or web address] 10/25/2025 4:00 PM EST Office Visit [facility] [address] [facility] [address] [place] [address] Fanny Hand DO [address] [place] [address] [email or web address] 11/20/2025 10:45 AM EST Office Visit [facility] [address] [facility] [address] [place] [address] Rafia Taylor MD [address] [place] [address] [email or web address] 11/29/2025 9:00 AM EST Nutrition [facility] [address] [facility] [address] [place] [address] Chantelle Connors LDN [address] [place] [address] [email or web address] documented as of this encounter Results [...] documented as of this encounter Care Teams Gas Furnace Installer Relationship Specialty Start Date End Date Jenny Salazar FIELD RECORDER [address] [place] [address] PCP - General Family Medicine 10/11/20 12/03/23 Steffi White FNP [address] [facility] [address] [place] [address] PCP - General Nurse Practitioner 08/22/24 10/23/24 Pcp, Unknown PCP - General 10/24/24 11/20/24 Moo Baez PA-C [address] [place] [address] PCP - General Physician Psych Assistant 11/21/24 Von Elizabeth MD [address] [place] [address] [email or web address] Insurance Assigned Provider 01/02/24 documented as of this encounter Additional Source Comments The information contained in this document represents components of the legal health record. It is not the complete legal health record.[facility]
--- OUTSIDE RECORDS SUMMARY | 2025-09-20 10:12 | XMS_ITS | Encounter Summary ---
Author Organization [facility] Address [address] [place] [address] Care Team Providers Care Brazing Machine Tender Name Role Phone Von Elizabeth MD Primary Care Provider [phone] Von Elizabeth MD Unavailable [phone] Von Elizabeth MD Primary Care Provider [phone] Encounter Details Date Type Department Care Team (Late st Contact Info) Description 12/26/2009 Clinical Conversion Encounter Department of Orthopedic Surgery ([address] [place] [address] [address] [place] [address], 2nd [place] [address] Ruben Mcintyre MD PhD [address] [place] [address] Social History Tobacco Use Types Packs/Day Years Used Date Smoking Tobacco: Never Assessed Comments Unknown Sex and Gender Information Value Date Recorded Sex Assigned at Female 09/27/2018 8:42 AM EST Legal Sex Female 2:16 PM EST Gender Identity Female 09/27/2018 8:42 AM EST Sexual Orientation Not on file documented as of this encounter Progress Notes * Ruben Mcintyre MD PhD - 10/17/2014 12:28 PM EST [id number],SHANNON [place], [place]. ORTHOPEDIC SURGERY CHANTELLE JOHNSON V 12/26/2009 # [id number] : 1980 Second Visit ID: [id number] Visit ID: [id number] Chantelle returns to see me on 12/26/09, first postoperative visit. DATE OF SURGERY: 12/11/09 PROCEDURE: Posterolateral ligament direct repair of the left elbow. Chantelle is doing quite well. Her incision is clean, dry, and intact. She is neurovascularly intact; no erythema, no edema, no inflammation or drainage. She is neurovascularly intact. She has no deficits. Today, we are going to place her in a removable splint and start range of motion exercises. I am confident she is going to have an excellent recovery and we will start controlled range of motion. I will see her in followup in 2 weeks. Grisel Mcintyre MD, PhD [phone] [id number] J: [id number] CC: Grisel Mcintyre MD, PhD, <Referring> Gordon Ohara MD, <Second referring Dr Name> THIS DOCUMENT WAS ELECTRONICALLY AUTHENTICATED BY Grisel Mcintyre MD, PhD ON 01/13/2010 20:46:03 PROGRESS NOTE [facility] * [address] [place] [address] * [phone] Page 1 of 1 documented in this encounter Plan of Treatment Not on file documented as of this encounter Visit Diagnoses Not on filedocumented in this encounter Care Teams Brazing Machine Tender Relationship Specialty Start Date End Date Von Elizabeth MD PCP - General 08/07/14 05/23/25 Von Elizabeth MD [address] [place] [address] PCP - Insurance Assigned PCP 05/24/25 Von Elizabeth MD [address] [place] [address] PCP - General Internal Medicine 05/24/25 documented as of this encounter
--- OUTSIDE RECORDS SUMMARY | 2025-09-20 10:12 | XMS_ITS | Encounter Summary ---
Author Organization [facility] Address [address] [place] [address] Phone Care Team Providers Care Forestry Patrolman Name Role Phone Von Elizabeth MD Unavailable [phone] Jenny Salazar NP Primary Care Provider [phone] Steffi White CHURN TENDER Primary Care Provider [phone] Pcp, Unknown Primary Care Provider Moo Leblanc PA-C Primary Care Provider [phone] Encounter Details Date Type Department Care Team (Late st Contact Info) Description 12/03/2020 Procedure Pass [facility] - [address] [place] [address] Social History Tobacco Use Types Packs/Day Years [...] Description 10/11/2025 3:20 PM EST Office Visit [facility] [address] [place], [place] [phone] Moo Baez PA-C [address] [place] [address] 10/25/2025 4:00 PM EST Office Visit [facility] [address] [facility] 2nd [place] [address] Fanny Hand DO [address] [place] [address] [email or web address] 11/20/2025 10:45 AM EST Office Visit [facility] [address] [facility] 9[address] [place] [address] Rafia Taylor MD [address] [place] [address] [email or web address] 11/29/2025 9:00 AM EST Nutrition [facility] [address] [facility] [address] [place] [address] Chantelle Connors LDN [address] [place] [address] [email or web address] documented as of this encounter Visit [...] documented as of this encounter Care Teams Forestry Patrolman Relationship Specialty Start Date End Date Jenny Salazar MEDICATION ASSISTANT [address] [place] [address] PCP - General Family Medicine 10/11/20 12/03/23 Steffi White FNP 15 [facility] [address] [place] [address] [email or web address] PCP - General Nurse Practitioner 08/22/24 10/23/24 Pcp, Unknown PCP - General 10/24/24 11/20/24 Moo Baez PA-C [address] [place] [address] [email or web address] PCP - General Physician Car Rider 11/21/24 Von Elizabeth MD [address] [place] [address] [email or web address] Insurance Assigned Provider 01/02/24 documented as of this encounter Additional Source Comments The information contained in this document represents components of the legal health record. It is not the complete legal health record.[facility]
--- OUTSIDE RECORDS SUMMARY | 2025-09-20 10:12 | XMS_ITS | Encounter Summary ---
Author Organization [facility] Address [address] [place] [address] Care Team Providers Care Sr. Unix System Administrator Name Role Phone Von Elizabeth MD Primary Care Provider [phone] Von Elizabeth MD Unavailable [phone] Von Elizabeth MD Primary Care Provider [phone] Encounter Details Date Type Department Care Team (Late st Contact Info) Description 01/07/2010 Clinical Conversion Encounter Department of Orthopedic Surgery ([address] [place] [address] [address] [place] [address], 2nd [place] [address] Ruben Mcintyre MD PhD [address] [place] [address] Social History Tobacco Use Types Packs/Day Years Used Date Smoking Tobacco: Never Assessed Comments Unknown Sex and Gender Information Value Date Recorded Sex Assigned at Female 09/27/2018 8:42 AM EST Legal Sex Female 2:16 PM EST Gender Identity Female 09/27/2018 8:42 AM EST Sexual Orientation Not on file documented as of this encounter Progress Notes * Ruben Mcintyre MD PhD - 10/17/2014 3:14 PM EST [id number],SHANNON [place], [place]. ORTHOPEDIC SURGERY ELIZABETHCHANTELLE Madelaine 01/07/2010 # [id number] : 1980 Second Visit ID: [id number] Visit ID: [id number] Chantelle is status post posterolateral ligament repair left elbow on 12/11/09. She is doing well. Incision is clean, dry, and intact. She is neurovascularly intact. No erythema, no edema, no purulence or drainage. Sutures are dissolving. She will go into a functional brace and start full range of motion today, pleased with her result. Her range of motion is limited from 30 to 60 at this point, but she will improve with time and therapy. I have given her therapy consult. Follow up in one month. Grisel Mcintyre MD, PhD [phone] [id number] J: [id number] CC: Grisel Mcintyre MD, PhD, <Referring> Gordon Ohara MD, <Second referring Dr Name> THIS DOCUMENT WAS ELECTRONICALLY AUTHENTICATED BY Grisel Mcintyre MD, PhD ON 01/22/2010 11:04:31 PROGRESS NOTE [facility] * [address] [place] [address] * [phone] Page 1 of 1 documented in this encounter Plan of Treatment Not on file documented as of this encounter Visit Diagnoses Not on filedocumented in this encounter Care Teams Sr. Unix System Administrator Relationship Specialty Start Date End Date Von Elizabeth MD PCP - General 08/07/14 05/23/25 Von Elizabeth MD [address] [place] [address] PCP - Insurance Assigned PCP 05/24/25 Von Elizabeth MD [address] [place] [address] PCP - General Internal Medicine 05/24/25 documented as of this encounter
--- OUTSIDE RECORDS SUMMARY | 2025-09-20 10:12 | XMS_ITS | Clinical Summary ---
Author Organization [facility] Address [address] [place] [address] Phone Care Team Providers Care Mat Cutter Name Role Phone Von Elizabeth MD Primary Care Provider [phone] Allergies No known active allergies Medications sertraline [...] of the surgery that is scheduled at [facility] in [place] next Thursday whereby the patient is having [...] Vaccine (#1) 2025 , 08/04/2019, 06/18/[address] [place] [address] [place] [address] Care Teams Mat Cutter Relationship Specialty Start Date End Date Von Elizabeth MD [address] [place] [address] PCP - General 10/08/20
--- OUTSIDE RECORDS SUMMARY | 2025-09-20 10:12 | XMS_ITS | Encounter Summary ---
Author Organization Antonietta Zimmerman [facility] Address [address] [place] [address] Care Team Providers Care Platform Material Handling Supervisor Name Role Phone Von Elizabeth MD Primary Care Provider [phone] Von Elizabeth MD Unavailable [phone] Von Elizabeth MD Primary Care Provider [phone] Encounter Details Date Type Department Care Team (Late st Contact Info) Description 02/06/2010 Clinical Conversion Encounter Department of Orthopedic Surgery ([address] [place] [address] [address] [place] [address], 2nd [place] [address] Kenya Eason NP [address] [place] [address] Social History Tobacco Use Types Packs/Day Years Used Date Smoking Tobacco: Never Assessed Comments Unknown Sex and Gender Information Value Date Recorded Sex Assigned at Female 09/27/2018 8:42 AM EST Legal Sex Female 2:16 PM EST Gender Identity Female 09/27/2018 8:42 AM EST Sexual Orientation Not on file documented as of this encounter Progress Notes * Kenya Eason NP - 10/17/2014 8:21 PM EST [id number],[place]. ORTHOPEDIC SURGERY CHANTELLE JOHNSON V 03/07/2010 # [id number] : 1980 Second Visit ID: [id number] Visit ID: [id number] PROBLEM: Status post posterolateral ligament repair of left elbow 12/11/2009. The patient presents today. She has gained full motion. She does lack hardware design engineer strength. 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 PHYSICAL EXAMINATION: She has full, painless range of motion of the left elbow. Incision is well healed. Capillary refill is brisk. Normal skin turgor and texture. PLAN: The patient will continue therapy for the next 2 to 4 weeks for strengthening. We will have her back to work full duty on March 18. She is pleased with the plan. She will follow up as needed. Seen and examined with Dr. Mcintyre. Kenya Eason NP [phone] [id number] J: [id number] CC: Grisel Mcintyre MD, PhD, <Referring> Gordon Ohara MD, <Second referring Dr Name> THIS DOCUMENT WAS ELECTRONICALLY AUTHENTICATED BY Keyna Eason NP ON 03/14/2010 12:38:33 PROGRESS NOTE [facility] * [address] [place] [address] * [phone] Page 1 of 1 * Kenya Eason NP - 10/17/2014 6:15 PM EST [id number],[place]. ORTHOPEDIC SURGERY ELIZABETH CHANTELLE Madelaine 02/06/2010 # [id number] : 1980 Second Visit ID: [id number] Visit ID: [id number] PROBLEM: Status post posterior lateral ligament repair, left elbow 12/11/2009. HISTORY OF PRESENT ILLNESS: The patient presents today. She is doing well. 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 She has had some improvement in the tingling. She had significant improvement with motion. She continues to have pain with rotation and they have not started strengthening yet. PHYSICAL EXAMINATION: On examination of her left elbow motion is 110 -0, after therapy she had pronation to 80 and supination to 80. IMPRESSION: Doing well. PLAN: start gentle range of motion. She will see Dr. Mcintyre in one month's time. At that time, we will discuss the return to work. Kenya Eason NP [phone] [id number] J: [id number] CC: Grisel Mcintyre MD, PhD, <Referring> Gordon Ohara MD, <Second referring Dr Name> THIS DOCUMENT WAS ELECTRONICALLY AUTHENTICATED BY Kenya Eason NP ON 02/07/2010 15:43:37 PROGRESS NOTE [facility] * [address] [place] [address] * [phone] Page 1 of 1 documented in this encounter Plan of Treatment Not on file documented as of this encounter Visit Diagnoses Not on filedocumented in this encounter Care Teams Platform Material Handling Supervisor Relationship Specialty Start Date End Date Von Elizabeth MD PCP - General 08/07/14 05/23/25 Von Elizabeth MD [address] [place] [address] PCP - Insurance Assigned PCP 05/24/25 Von Elizabeth MD [address] [place] [address] PCP - General Internal Medicine 05/24/25 documented as of this encounter
--- OUTSIDE RECORDS SUMMARY | 2025-09-20 10:12 | XMS_ITS | Encounter Summary ---
Author Organization [facility] Address [address] [address] Phone Care Team Providers Care Space Control Agent Name Role Phone Von Elizabeth MD Unavailable [phone] Jenny Salazar NP Primary Care Provider [phone] Steffi White RN GERIATRIC Primary Care Provider [phone] Pcp, Unknown Primary Care Provider Moo Leblanc PA-C Primary Care Provider [phone] Encounter Details Date Type Department Care Team (Late st Contact Info) Description 10/24/2021 Procedure Pass [facility], [address] [address] Social History Tobacco Use Types Packs/Day Years [...] Description 10/11/2025 3:20 PM EST Office Visit [facility] [address] [place], [place] [id number] Moo Baez PA-C [address] [place] [address] 10/25/2025 4:00 PM EST Office Visit [facility] [address] [facility] 2nd [place] [address] Fanny Hand DO [address] [place] [address] [email or web address] 11/20/2025 10:45 AM EST Office Visit [facility] [address] [facility] 9th [place] [address] Rafia Taylor MD [address] [place] [address] [email or web address] 11/29/2025 9:00 AM EST Nutrition [facility] [address] [facility] [address] [place] [address] Chantelle Connors LDN [address] [place] [address] [email or web address] documented as of this encounter Visit Diagnoses Not on filedocumented in this encounter Additional Health Concerns Infection Onset Date Last Indicated Resolved Time CoV-Exposed Comment:Recent close contact documented in the COVID-19 PCR/PRO order 10/08/2021 10/10/2021 10/29/2021 1:[address] Assessment Noted Time PHQ-2 Depression Total Score: 2 12/29/19 22 7:32 AM EDT documented as of this encounter Care Teams Space Control Agent Relationship Specialty Start Date End Date Jenny Salazar NP [address] [place] [address] PCP - General Family Medicine 10/11/20 12/03/23 Steffi White FNP [address] [address] [email or web address] PCP - General Nurse Practitioner 08/22/24 10/23/24 Pcp, Unknown PCP - General 10/24/24 11/20/24 Moo Baez PA-C [address] [place] [address] PCP - General Physician College Director 11/21/24 Von Elizabeth MD [address] [place] [address] [email or web address] Insurance Assigned Provider 01/02/24 documented as of this encounter Additional Source Comments The information contained in this document represents components of the legal health record. It is not the complete legal health record.[facility]
--- OUTSIDE RECORDS SUMMARY | 2025-09-20 10:12 | XMS_ITS | Encounter Summary ---
Author Organization Antonietta Evens [facility] Address [address] [place] [address] Care Team Providers Care Turkey Picker Name Role Phone Von Elizabeth MD Primary Care Provider [phone] Von Elizabeth MD Unavailable [phone] Von Elizabeth MD Primary Care Provider [phone] Encounter Details Date Type Department Care Team (Late st Contact Info) Description 12/11/2009 Clinical Conversion Encounter Department of Orthopedic Surgery ([address] [place] [address] [address] [place] [address], 2nd [place] [address] Ruben Mcintyre MD PhD [address] [place] [address] Social History Tobacco Use Types Packs/Day Years Used Date Smoking Tobacco: Never Assessed Comments Unknown Sex and Gender Information Value Date Recorded Sex Assigned at Female 09/27/2018 8:42 AM EST Legal Sex Female 2:16 PM EST Gender Identity Female 09/27/2018 8:42 AM EST Sexual Orientation Not on file documented as of this encounter Miscellaneous Notes * Op Note - Ruben Mcintyre MD PhD - 10/17/2014 12:28 PM EST [id number],SHANNON [facility] AMBULATORY OPERATIVE REPORT NAME: CHANTELLE JOHNSON V DATE: 12/11/2009 #: [id number] : 1980 VISIT ID: [id number] SECOND VISIT ID: SURGEON: Grisel Mcintyre MD, PhD TREATING MACHINE OPERATOR: Jj Nichols MD PREOPERATIVE DIAGNOSIS: LEFT ELBOW POSTEROLATERAL LIGAMENT POST TRAUMATIC TEAR. POSTOPERATIVE DIAGNOSIS: SAME. PROCEDURE NAME: ELBOW POSTEROLATERAL LIGAMENT A DIRECT LOCAL SOFT TISSUE REPAIR. ANESTHESIA: General LMA with local. ESTIMATED BLOOD LOSS: None. TOURNIQUET TIME: 25 minutes. FLUIDS: Per anesthesia record. DRAINS: None. SPECIMENS: None. COMPLICATIONS: None. CONDITION: Stable to the recovery room. INDICATIONS: N/A. PROCEDURE: The patient was brought to the operating theater and placed in a supine position. Bath protocol was followed. Site and side were confirmed. The procedure was confirmed. Patient was confirmed. The patient positioning was confirmed. Tourniquet was placed high on the left arm. General LMA was introduced and 2 grams of Kefzol were given IV preoperatively. Sterile prepping and draping of the left upper extremity was performed. Esmarch was utilized to exsanguinate the limb. Tourniquet was inflated to 250 mmHg. Surgery was initiated. Curvilinear incision was made through standard Carlos approach. Dissection was taken down to the level of the anconeus and the common extensors. Interval between the anconeus and the common extensor wad was elevated and posterolateral ligament complex was identified. A tear in the proximal aspect of the ligament was identified off the humerus. This was infolded into the joint line. This was taken out and extruded out of the joint and a direct ligament repair was made using the G2 Mitek suture anchor. Anatomic repair of the ligament was performed in a Scot-Audi weave. Once this was done, excellent anatomic repair was noted. Preoperatively the patient had a positive O'Brittaney maneuver. Postoperatively, patient had none with stable repair. Interval between anconeus and common extensors was repaired with 2-0 FiberWire in an imbricating [id number] fashion. Stable anatomic repair was obtained. Copious irrigation was applied. Tourniquet was released. Hemostasis was obtained. Closure of subcutaneous tissues was made with 3-0 Vicryl suture in simple fashion. Skin was closed with 4-0 Monocryl suture in running subcuticular fashion. Mastisol and Steri-Strips were placed. Patient was placed in posterior elbow splint at 45 degrees, neutral wrist and returned to the recovery room, awake, alert, oriented, neurovascularly intact, and in stable condition. Sharp counts and sponge counts were correct x2. Grisel Mcintyre MD, PhD [phone] [id number] J: [id number] CC: Gordon Ohara MD, <Primary Care Physician> THIS DOCUMENT WAS ELECTRONICALLY AUTHENTICATED BY Grisel Mcintyre MD, PhD ON 12/27/2009 15:06:35 SHUNCHANTELLE V 12/11/2009 #: [id number] documented in this encounter Plan of Treatment Not on file documented as of this encounter Visit Diagnoses Not on filedocumented in this encounter Care Teams Turkey Picker Relationship Specialty Start Date End Date Von Elizabeth MD PCP - General 08/07/14 05/23/25 Von Elizabeth MD [address] [place] [address] PCP - Insurance Assigned PCP 05/24/25 Von Elizabeth MD [address] [place] [address] PCP - General Internal Medicine 05/24/25 documented as of this encounter
--- OUTSIDE RECORDS SUMMARY | 2025-09-20 10:12 | XMS_ITS | Encounter Summary ---
Author Organization [facility] Address [address] [place] [address] Phone Care Team Providers Care Machine Shop Worker Name Role Phone Von Elizabeth MD Unavailable [phone] Jenny Salazar HAM STRINGER Primary Care Provider [phone] Steffi White RESPIRATORY MANAGER Primary Care Provider [phone] Pcp, Unknown Primary Care Provider Moo Leblanc PA-C Primary Care Provider [phone] Encounter Details Date Type Department Care Team (Late st Contact Info) Description 12/03/2020 Ancillary Orders Virtual Department [address] [place] [address] Jenny Salazar, ANISHA [address] [place] [address] [email or web address] Breast screening Social History Tobacco Use Types [...] Description 10/11/2025 3:20 PM EST Office Visit [facility] [address] [place] [address] Moo Baez PA-C [address] [place] [address] [email or web address] 10/25/2025 4:00 PM EST Office Visit [facility] [address] [facility] 2nd [place] [address] Fanny Hand DO [address] [place] [address] [email or web address] 11/20/2025 10:45 AM EST Office Visit [facility] [address] [facility] 9th [place] [address] Rafia Taylor MD [address] [place] [address] [email or web address] 11/29/2025 9:00 AM EST Nutrition [facility] [address] [facility] [address] [place] [address] Chantelle Connors LDN [address] [place] [address] [email or web address] documented as of this encounter Results [...] Negative. DENSITY: There are scattered fibroglandular densities. Jenny Salazar NP IMG MG EXAMS Final [...] as of this encounter Care Teams Machine Shop Worker Relationship Specialty Start Date End Date Jenny Salazar, ANISHA [address] [place] [address] PCP - General Family Medicine 10/11/20 12/03/23 Steffi White FNP [address] [address] PCP - General Nurse Practitioner 08/22/24 10/23/24 Pcp, Unknown PCP - General 10/24/24 11/20/24 Moo Baez PA-C [address] [place] [address] PCP - General Physician Lead Informatica Developer 11/21/24 Von Elizabeth MD [address] [place] [address] [email or web address] Insurance Assigned Provider 01/02/24 documented as of this encounter Additional Source Comments The information contained in this document represents components of the legal health record. It is not the complete legal health record.[facility]
== END 2025-09-20 10:49 | disposition home or self-care (01) ==
LOC: HO.HKA 10:00
PROVIDERS: PCP Internal Medicine; Visit Provider Internal Medicine Nephrology
DX: I10 Essential (primary) hypertension (principal)
CPT/HCPCS: 99214